=== PATIENT | male | born 1960 | race Caucasian/White ===

== ENCOUNTER 2020-01-25 21:20 | Emergency (ER) | payer OTHER, SELFPAY ==
--- NOTE | ~2020-01-25 | CT_ITS ---
EXAMINATION: CT brain wo con, CT cervical spine wo con EXAM DATE: 01/25/2020 23:19 INDICATION: Fall, syncope. Neck pain. Was in the shower. TECHNIQUE: Spiral CT of the head was performed without contrast. Axial, coronal and sagittal images were reviewed. Spiral CT of the cervical spine was performed without contrast. Axial images were rev iewed. Coronal and sagittal reformatted images were also reviewed. The dose-length product (DLP) fo r this examination was 354.92 (accession [id number]), 542.95 (accession [id number]) mGy-cm. The exposure was tailored according to patient size, and iterative reconstruction (ASIR) was used as additional dose reduction technique. There is no prior study for comparison. FINDINGS: HEAD CT: Contrast from prior intravenous injection of Omnipaque. There is no acute intraparenchymal hemorrhage. No evidence of intraparenchymal brain mass lesion. No evidence of acute infarction. Th ere is mild prominence of the sulci and ventricles related to cerebral atrophy. There is intracrani al carotid arteriosclerosis. There is no mass effect or midline shift. There is no obstructive hydr ocephalus suspected. There are no extra-axial collections. There are no acute calvarial fractures. The orbits are unremarkable. Soft tissue is unremarkable. The visualized sinuses and mastoid air c ells are well aerated. CERVICAL CT: Patient has acute type III odontoid process fracture with 3 mm anterolisthesis of the od ontoid with respect to the base of C2. Unstable type injury. The spinal canal still appears widely pa tent. The lateral masses of C1 line up with C2. There is ankylosing spondylitis with fusion of the c ervical facet joints and anterior longitudinal ligament . There is thoracic kyphosis. No other acute fractures. IMPRESSION: 1. Acute odontoid process fracture with 3 mm anterolisthesis. Unstable type injury; recommend neuros urgical consult. 2. Cervical ankylosing spondylitis. 3. No acute intracranial findings. I discussed acute odontoid fracture with Dr. Miya Nichols MD at 01/25/2020 23:39 CDT. Reviewed, dictated and finalized at location G. IMPRESSION: 1. Acute odontoid process fracture with 3 mm anterolisthesis. Unstable type in jury; recommend neurosurgical consult. 2. Cervical ankylosing spondylitis. 3. No acute intracranial findings. I discussed acute odontoid fracture with Dr. Miya Nichols MD at 01/25/2020 23: 39 CDT.
--- NOTE | ~2020-01-25 | CT_ITS ---
EXAMINATION: CT abdomen pelvis w con EXAM DATE: 01/25/2020 22:20 INDICATION: GI bleed. TECHNIQUE: Spiral CT of the abdomen and pelvis was performed following intravenous injection of 100 m L Omnipaque 350. Axial, coronal and sagittal images were reviewed. The dose-length product (DLP) fo r this examination was 616.49 mGy-cm. The exposure was tailored according to patient size (auto mA e xposure control), and iterative reconstruction (ASIR) was used as additional dose reduction technique . There is no prior study for comparison. FINDINGS: There is a left adrenal nodule measuring 1 cm, probably adenoma. The liver, spleen, and pa ncreas are unremarkable. The gallbladder is contracted but otherwise unremarkable. Portal and splen ic veins are patent. Kidneys enhance symmetrically. There is no hydronephrosis. The prostate is u nremarkable. The bladder is unremarkable. There is no retroperitoneal or pelvic lymphadenopathy. There is mild scattered arteriosclerotic disease. There is moderate scattered colonic diverticulosis with some inflammation along the splenic colonic f lexure colon but also contiguous with the pancreatic tail. Focal outpouching, bulging of gastric con tour below the gastroesophageal junction (see axial image 45) measuring about 3 cm, could be widemout h diverticulum but can't exclude peptic ulcer disease, clinical correlation. The appendix is not positively visualized. There is no pericecal inflammatory change to suggest appe ndicitis. There is expected amount of colonic stool. No free intraperitoneal gas. The heart is no rmal in size. There are no pericardial or pleural effusions. The lung bases are unremarkable. Ther e are no osteoblastic or osteolytic lesions identified. Patient has ankylosing spondylitis. IMPRESSION: Left upper quadrant mild fat stranding most likely uncomplicated splenic flexure divertic ulitis. Pancreatic tail and a gastric outpouching is also in proximity; recommend checking amylase/li pase level and also considering/excluding peptic ulcer disease as possible etiology for patient's sym ptoms and inflammation regional. Reviewed, dictated and finalized at location A. IMPRESSION: Left upper quadrant mild fat stranding most likely uncomplicated sp lenic flexure diverticulitis. Pancreatic tail and a gastric outpouching is also in proximity; recommend checking amylase/lipase level and also considering/exc luding peptic ulcer disease as possible etiology for patient's symptoms and inf lammation regional.
[2020-01-25 21:20] VITALS: BP 83/58; PULSE 74; RESP 19; TEMP 36.6; O2SAT 98
[2020-01-25] MEDS: SODIUM CHLORIDE 0.9% IV 1,000 ML 999 ML IV CONT (21:25)
--- NOTE | 2020-01-25 21:31 | ECG_ITS ---
Measurements Intervals [place] Rate: 73 P: 62 VT: 163 QRS: 55 QRSD: 83 T: 62 QT: 380 QTc: 421 Interpretive Statements SINUS RHYTHM BORDERLINE T WAVE ABNORMALITY- ANTERIOR LEADS BASELINE WANDER- I, AVR, AVF, V1-V4 BORDERLINE ECG Electronically Signed On 01-26-2020 7:04:10 CDT by Sammy Hinojosa D.O.
--- NOTE | 2020-01-25 21:32 | ED.GIBLEED ---
HPI - GI Bleed General Chief complaint: GI Bleed Stated complaint: diarrhea Time Seen by Provider: 01/25/20 21:23 History of Present Illness HPI Narrative: Patient presents via EMS with his for GI bleed and syncope. In the last 3 days he has had multiple bowel movements of black tarry stool. This afternoon he had 4 loose bowel movements, then he got in the shower and passed out. When he woke up, he vomited black tarry substance. He has been taking Pepto-Bismol, and knows that that can make for black stools. He has a medical history of hypertension and cardiac stents. He smokes cigarettes, but does not drink alcohol or do drug. 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 He takes an 81 mg aspirin a day, for his heart. MD complaint: coffee ground emesis and melena Onset (ago): day(s) Pain Consistency: constant Relieving factors: none Exacerbating factors: other (Fainting in the shower) Related Data Home Medications Medication Instructions Recorded Confirmed aspirin [Ainsley Chewable Aspirin] 81 mg PO DAILY 01/25/20 atenolol 50 mg PO DAILY 01/25/20 etanercept [Enbrel SureClick] 50 mg SUBCUT WEEKLY 01/25/20 hydrochlorothiazide 25 mg PO DAILY 01/25/20 lisinopril [Prinivil] 20 mg PO DAILY 01/25/20 pantoprazole 40 mg PO QAM 01/25/20 piroxicam 20 mg PO DAILY 01/25/20 Allergies Allergy/AdvReac Type Severity Reaction Status Date / Time No Known Allergies Allergy Verified 01/25/20 21:25 Review of Systems Review of Systems: Narrative: CONSTITUTIONAL: Denies fever, chills, or sweats. EYES: Denies visual changes, redness, or discharge. ENT: Denies rhinorrhea, congestion, sore throat, or otalgia. CARDIOVASCULAR: Denies chest pain, palpitations, or edema. RESPIRATORY: Denies cough or dyspnea. GASTROINTESTINAL: He has had vomiting, and black stools. GENITOURINARY: Denies dysuria or hematuria. SKIN: Denies rash or itching. MUSCULOSKELETAL: Denies back pain, joint pain, or myalgia. NEUROLOGIC: Denies headache, numbness, or weakness. PSYCHIATRIC: Denies anxiety or depression. All systems reviewed & are unremarkable except as noted in HPI and below PMFSH Past Medical History Medical History Acute GI bleeding Syncope and collapse Surgical History Surgical History (Updated 01/25/20 @ 21:36 by Miya Nichols MD) History of circumcision History of oral surgery Social History Social History (Updated 01/25/20 @ 21:36 by Miya Nichols MD) Smoking status: Current every day smoker Alcohol intake: never Substance use: never Exam Narrative: Exam Narrative: GENERAL: Well-appearing, well-nourished, and in no acute distress. HEAD: Normocephalic, atraumatic. EYES: PERRLA and EOMI. ENT: Nares clear, no rhinorrhea or epistaxis. Mucous membranes moist. Black substance on his tongue. NECK: Supple. CHEST: Clear to auscultation. No respiratory distress. HEART: Regular rate and rhythm. No murmur heard. Normal peripheral pulses. ABDOMEN: Soft, nontender, nondistended, normal active bowel sounds. EXTREMITIES: Normal range of motion. No edema. SKIN: Warm, dry, no rash. NEURO: No focal deficits. Alert and oriented x3. PSYCH: Normal mood and affect. Course Reevaluation(s) Reevaluation #1: Went in to tell the patient about his CAT scan results and blood transfusion, and he complained of neck pain 9 out of 10. Will order morphine for the pain cervical collar for stabilization and a CAT scan of the cervical spine. Reevaluation #2: Went back in the room to update the patient and his on his neck fracture. He requests additional pain medicine and request to go to [place]. Reevaluation #3: Went back in the room to tell the patient that he was being transferred to [facility] because of availability of beds. He continues to nod his head in agreement but I told him please hold her head still and just speak. He is neurovascularly intact. He requests ice chips or water. I told him he probably was no
[2020-01-25 21:41] LABS: Basophils Absolute Auto 0.1 K/mm3 (0.0-0.1); Basophils Percent Auto 0.8 % (0.2-1.2); Eosinophils Absolute Auto 1.1 K/mm3 (0-0.3); Eosinophils Percent Auto 7.6 % (0-4.4); Hematocrit 25.6 % (42.0-52.0); Hemoglobin 7.7 g/dL (14.0-18.0); Immature Granulocyte Absolute 0.21 K/mm3 (0.00-0.031); Immature Granulocyte Percent A 1.5 % (0-0.5); Lymphocytes Absolute Auto 2.54 K/mm3 (0.9-3.2); Lymphocytes Percent Auto 17.7 % (18.3-44.2); Mean Corpuscular HGB Conc 30.1 g/dl (32-36); Mean Corpuscular Hemoglobin 25.8 pg (26-34); Mean Corpuscular Volume 85.6 fl (80-100); Mean Platelet Volume 10.5 fl (7.4-10.4); Monocytes Absolute Auto 1.2 K/mm3 (0.1-0.6); Monocytes Percent Auto 8.7 % (2.6-8.5); Neutrophils Absolute Auto 9.1 K/mm3 (1.3-6.7); Neutrophils Percent Auto 63.7 % (45.5-73.1); Platelet Count Result 326 k/mm3 (150-375); Red Blood Count 2.99 M/mm3 (4.6-6.20); Red Cell Distribution Width 14.3 % (11.5-14.5); White Blood Count 14.3 K/mm3 (4.5-10.0)
[2020-01-25 21:49] LABS: Alanine Aminotransferase 10 U/L (4-50); Albumin Level 3.3 g/dL (3.5-5.1); Alkaline Phosphatase 53 U/L (38-126); Aspartate Amino Transferase 17 U/L (17-59); Bilirubin,Total 0.2 mg/dL (0.2-1.3); Blood Urea Nitrogen 78 mg/dL (9-20); Calcium 8.2 mg/dL (8.4-10.2); Carbon Dioxide 24 mmol/L (22-30); Chloride 109 mmol/L (98-107); Estimated CRCL calculation 33 ml/min; Estimated Glomerular Filt Rate 34; Glucose 148 mg/dL (75-110); Magnesium 1.9 mg/dL (1.6-2.3); Potassium 4.5 mmol/L (3.4-5.0); Sodium 139 mmol/L (137-145)
[2020-01-25 22:00] LABS: Troponin I < 0.012 ng/mL (0.000-0.034)
[2020-01-25 22:03] LABS: INR 1.1; Prothrombin Time 13.6 Seconds (11.1-14.7)
[2020-01-25 22:05] LABS: Partial Thromboplastin Time 29.4 SECONDS (22.3-36.8)
--- NOTE | 2020-01-25 22:25 | PC.NURSE ---
Called lab to add on Trop I Baseline
[2020-01-25] MEDS: PANTOPRAZOLE SODIUM IV 40 MG VIAL IV PUSH (22:29)
--- NOTE | 2020-01-25 22:34 | PC.NURSE ---
Called lab to add on Lipase
[2020-01-25 22:46] LABS: Lipase 192 U/L (23-300)
[2020-01-25] MEDS: MORPHINE SULFATE 2 MG/ML INJ IV PUSH (22:46)
[2020-01-25] MEDS: SODIUM CHLORIDE 0.9% IV 250 ML 30 ML IV CONT (22:47)
[2020-01-25 22:49] VITALS: BP 120/78; PULSE 82; RESP 15; TEMP 36.5; O2SAT 97
[2020-01-25] MEDS: TUBING, BLOOD PLUM PUMP TUBING 1 EACH XX (22:50)
[2020-01-25 23:05] VITALS: BP 111/72; PULSE 81; RESP 20; TEMP 36.6; O2SAT 96
[2020-01-25 23:43] VITALS: BP 131/73; PULSE 80; RESP 17; TEMP 36.8; O2SAT 97
[2020-01-25] MEDS: MORPHINE SULFATE 4 MG/ML INJ IV PUSH (23:57)
[2020-01-26 00:12] LABS: Add Urine Microscopic? NO; Appearance Urine Clear (Clear); Bilirubin Urine Negative (Negative); Blood Urine Negative (Negative); Color Urine Colorless (Yellow); Glucose Urine UA Negative (Negative); Ketones Urine Negative (Negative); Leukocyte Esterase Ur Negative LEU/UL (Negative); Nitrate Urine Negative (Negative); Protein Urine Negative (Negative); Urobilinogen Urine Negative mg/dL (<2.0)
[2020-01-26 00:14] LABS: Specific Grav Ur 1.032 (1.001-1.035)
[2020-01-26 00:30] VITALS: BP 128/72; PULSE 80; RESP 17; O2SAT 95
[2020-01-26 01:00] VITALS: BP 124/78; PULSE 81; RESP 16; O2SAT 94
[2020-01-26 01:13] VITALS: BP 129/77; PULSE 80; RESP 18; TEMP 36.5; O2SAT 96
[2020-01-26] MEDS: TUBING, BLOOD PLUM PUMP TUBING 1 EACH XX (01:25)
[2020-01-26 01:35] VITALS: BP 126/75; PULSE 80; RESP 17; TEMP 36.5; O2SAT 96
[2020-01-26 01:52] VITALS: BP 128/76; PULSE 79; RESP 19; TEMP 36.2; O2SAT 98
[2020-01-26] MEDS: MORPHINE SULFATE 4 MG/ML INJ (02:00)
== END 2020-01-26 02:09 | disposition short-term general hospital (02) ==
PROVIDERS: Emergency Provider Emergency Medicine
DX: K92.2 Gastrointestinal hemorrhage, unspecified (principal); R55 Syncope and collapse; S12.190A Other displaced fracture of second cervical vertebra, initial encounter for closed fracture; I10 Essential (primary) hypertension; Z95.5 Presence of coronary angioplasty implant and graft; F17.210 Nicotine dependence, cigarettes, uncomplicated; M45.2 Ankylosing spondylitis of cervical region; R94.31 Abnormal electrocardiogram [ECG] [EKG]; Z79.82 Long term (current) use of aspirin; W18.2XXA Fall in (into) shower or empty bathtub, initial encounter
CPT/HCPCS: 36415; 36430; 70450; 72125; 74177; 80053; 81003; 83690; 83735; 84484; 85025; 85610; 85730; 86850; 86900; 86901; 86923; 93005; 96361; 96365; 96374; 96375; 96376; 99285; C9113; J2270; J2543; J7030; J7050; L0140; P9016; Q9967

== ENCOUNTER 2020-02-06 09:44 | Inpatient (IN) | payer OTHER, SELFPAY ==
[2020-02-06] VITALS (26 sets, daily range): BP systolic 62–134; BP diastolic 33–95; PULSE 76–148; RESP 16–27; TEMP 35.7–36.9; O2SAT 93–100; BMI 27.3
--- NOTE | ~2020-02-06 | XR_ITS ---
EXAMINATION: XR chest 1V portable DATE: 02/08/2020 06:18 INDICATION: Acute respiratory failure TECHNIQUE: frontal view of the chest was obtained. COMPARISON: Chest radiograph dated 02/07/2020 FINDINGS: Endotracheal tube tip 2.8 cm above the douglas. Nasogastric tube extends below the left hemidiaphragm with distal tip collimated off the study. Skin missy projecting over the epigastric region. Mildly decreased lung volumes. Pulmonary vascular congestion without aiden pulmonary edema. No other airspace opacities, pleural effusion or pneumothorax. The cardiomediastinal silhouette is normal. Cor onary artery stent. IMPRESSION: 1. Pulmonary vascular congestion without aiden pulmonary edema. Reviewed, dictated and finalized at location A.
--- NOTE | ~2020-02-06 | XR_ITS ---
XR hip RT 2V w AP pelvis 02/06/2020 10:15 Indication: Status post fall. Right hip discomfort. Procedure: 3 views right hip Comparison: No prior studies for comparison. Findings: Mild osteoarthritis of the right hip. No acute fracture or traumatic malalignment. No signi ficant soft tissue abnormality. No radiopaque foreign bodies. Impression: 1: No acute fracture. 2: Mild osteoarthritis of the right hip. Reviewed, dictated and finalized at location A. Impression: 1: No acute fracture. 2: Mild osteoarthritis of the right hip.
--- NOTE | ~2020-02-06 | XR_ITS ---
EXAMINATION: XR abdomen NG/feed tube insert EXAM DATE: 02/06/2020 20:39 INDICATION: Nasogastric tube placement. TECHNIQUE: Frontal projection(s) of the abdomen for interpretation. There is no prior study for keith person. FINDINGS: Feeding tube tip and side-port project over gastric bubble, adequate. Lung bases are unrem arkable. Nonobstructive upper abdominal bowel gas pattern. IMPRESSION: Feeding tube overlying expected position. Reviewed, dictated and finalized at location A.
--- NOTE | ~2020-02-06 | XR_ITS ---
EXAMINATION: XR abdomen obstructive series DATE: 02/07/2020 13:47 INDICATION: Assess for bowel perforation TECHNIQUE: Frontal supine and upright views of the abdomen were obtained. COMPARISON: CT dated 01/25/2020 FINDINGS: Nasogastric tube extends through the stomach with angulation at the distal tip suggesting extension i nto the first portion of the duodenum. No dilated gas-filled loops of bowel. No free intraperitoneal gas. Right femoral central venous catheter with distal tip projecting over the region of the right c ommon iliac vein. Temperature probe within a French catheter with tip projecting over the bladder. Lik efrain vasectomy clips at the base of the scrotum on both the left and right. Visualized lung bases are clear. No pleural effusion. Heart size is normal. IMPRESSION: 1. No free intraperitoneal gas or dilated gas-filled loops of bowel to suggest obstruction. 2. Nasogastric tube tip likely in the first portion of the duodenum. Could consider withdrawal by [address] the distal tip in the distal gastric body. Reviewed, dictated and finalized at location A. IMPRESSION: 1. No free intraperitoneal gas or dilated gas-filled loops of bowel to suggest obstruction. 2. Nasogastric tube tip likely in the first portion of the duodenum. Could cons ider withdrawal by [address] the distal tip in the distal gastric body.
--- NOTE | ~2020-02-06 | XR_ITS ---
EXAMINATION: XR chest 1V portable DATE: 02/09/2020 06:00 INDICATION: Acute respiratory failure TECHNIQUE: frontal view of the chest was obtained. COMPARISON: Chest radiograph dated 02/08/2020 FINDINGS: Endotracheal tube tip 1.9 cm above the douglas. Nasogastric tube extends below the left hemidiaphragm with distal tip collimated off the study. Lung volumes remain mildly decreased. Linear discoid atelectasis at the lateral right midlung zone. I ncrease in opacities in the bilateral lower lung zones which could represent atelectasis and/or pneum onia. No pneumothorax or definitive pleural effusion. Cardiomediastinal silhouette is normal. Coronar y artery stenting. IMPRESSION: 1. Opacities in the right mid to lower lung and left lower lung zones which could represent atelectas is and/or pneumonia. Reviewed, dictated and finalized at location A. IMPRESSION: 1. Opacities in the right mid to lower lung and left lower lung zones which cou ld represent atelectasis and/or pneumonia.
--- NOTE | ~2020-02-06 | XR_ITS ---
EXAMINATION: XR chest 1V portable DATE: 02/07/2020 05:43 INDICATION: Mechanical ventilation. TECHNIQUE: frontal view of the chest was obtained. COMPARISON: Chest radiograph dated 02/06/2020 FINDINGS: Endotracheal tube tip 1.6 cm above the douglas. Nasogastric tube extends below the left hemidiaphragm with distal tip collimated off the study. Lungs remain clear with no focal airspace opacities, pulmonary edema, pleural effusion or pneumothora x. The cardiomediastinal silhouette is normal. Kauffman artery stenting. IMPRESSION: 1. No acute cardiopulmonary disease. Reviewed, dictated and finalized at location A.
--- NOTE | ~2020-02-06 | XR_ITS ---
EXAMINATION: XR chest 1V portable DATE: 02/10/2020 05:31 INDICATION: Acute respiratory failure. TECHNIQUE: frontal view of the chest was obtained. COMPARISON: Chest radiograph dated 02/09/2020 FINDINGS: Endotracheal tube tip 2.9 cm above the douglas. Small lung volumes. Gradient of hazy airspace opacitie s in the bilateral lower lung zones with blunting at the costophrenic angles consistent with small po steriorly layering bilateral pleural effusions with associated atelectasis or less likely pneumonia. Mild linear discoid atelectasis in the right midlung zone. No pneumothorax. Heart size is normal. Cor onary artery stenting. Body wall edema at the lateral chest wall. IMPRESSION: 1. Small bilateral pleural effusions with associated basilar atelectasis versus less likely pneumonia . Reviewed, dictated and finalized at location A. IMPRESSION: 1. Small bilateral pleural effusions with associated basilar atelectasis versus less likely pneumonia.
--- NOTE | ~2020-02-06 | XR_ITS ---
EXAMINATION: XR chest 1V portable 02/06/2020 10:23 INDICATION: Syncope. STEMI. PROCEDURE: AP portable chest COMPARISON: No prior studies for comparison. FINDINGS: The lungs are clear. The cardiomediastinal silhouette is within normal limits. There are no pleural effusions. There is no pneumothorax suspected. IMPRESSION: 1: NO ACUTE CARDIOPULMONARY DISEASE. Reviewed, dictated and finalized at location A.
--- NOTE | ~2020-02-06 | CT_ITS ---
EXAMINATION: CT brain wo con DATE: 02/06/2020 10:04 INDICATION: Syncope TECHNIQUE: Computed tomography (CT) of the head was performed without intravenous contrast. Sagittal and coronal reconstructions were performed. The mA was adjusted according to patient size. Iterative reconstruction technique was employed. The dose-length product was 605.33 mGy-cm. COMPARISON: head CT dated 01/25/2020 FINDINGS: No acute intracranial hemorrhage, acute infarction or abnormal extra axial fluid collection. Symmetri c mild increased prominence of the sulci and subarachnoid spaces overlying the convexities consistent with mild age-appropriate diffuse cerebral volume loss. Ventricles are normal and symmetric. No mas s/mass effect. The orbits, paranasal sinuses and mastoid air cells are normal. Intracranial calcified cerebral atherosclerosis is noted. IMPRESSION: 1. Normal aging brain. No acute intracranial process. Reviewed, dictated and finalized at location A.
--- NOTE | ~2020-02-06 | US_ITS ---
EXAMINATION: US venous doppler [facility] DATE: 02/11/2020 11:05 INDICATION: Fever, acute respiratory failure TECHNIQUE: Atkins scale images without and with compression and Doppler images of the bilateral lower e xtremity veins were obtained. COMPARISON: None FINDINGS: The right common femoral vein, profunda femoral vein, femoral vein, popliteal vein, peroneal trunk, p osterior tibial veins, and greater saphenous vein are patent. The left common femoral vein, profunda femoral vein, femoral vein, popliteal vein, peroneal trunk, po sterior tibial veins, and greater saphenous vein are patent. IMPRESSION: 1. Patent bilateral lower extremity veins. No evidence of deep venous thrombosis. Reviewed, dictated and finalized at location A. IMPRESSION: 1. Patent bilateral lower extremity veins. No evidence of deep venous thrombosi s.
--- NOTE | ~2020-02-06 | CT_ITS ---
EXAMINATION: CT brain wo con DATE: 02/15/2020 01:16 INDICATION: Right hemiparesis. TECHNIQUE: Computed tomography (CT) of the head was performed without intravenous contrast. The mA wa s adjusted according to patient size. Iterative reconstruction technique was employed. The dose-lengt h product was 354.92 mGy-cm. COMPARISON: Head CT 02/06/2020 FINDINGS: There is an area of low-attenuation in the right frontal lobe white matter. There is an are a of low attenuation involving the left frontoparietal region primarily involving white matter. There is no acute intracranial hemorrhage. The ventricles are normal in size. The orbits are normal. The p aranasal sinuses are clear. The mastoid air cells are normal. IMPRESSION: 1. New areas of low-attenuation in the right frontal lobe and left frontoparietal region, consistent with infarcts. Reviewed, dictated and finalized at location A. IMPRESSION: 1. New areas of low-attenuation in the right frontal lobe and left frontopariet al region, consistent with infarcts.
--- NOTE | ~2020-02-06 | XR_ITS ---
EXAMINATION: XR chest 1V portable INDICATION: Acute respiratory failure TECHNIQUE: Portable AP chest at 0547 hours COMPARISON: 02/10/2020 FINDINGS: The endotracheal tube ends approximately 2.8 cm above the douglas. The lung volumes are low . Small pleural effusions are present with slight increase on the right. There are stable patchy biba silar airspace opacities. No pneumothorax is identified. The cardiomediastinal silhouette is normal. IMPRESSION: 1. Small pleural effusions with slight increase on the right. 2. Stable bibasilar airspace opacities, likely atelectasis. Reviewed, dictated and finalized at location A.
--- NOTE | ~2020-02-06 | XR_ITS ---
EXAMINATION: XR chest ET placement EXAM DATE: 02/06/2020 23:10 INDICATION: Respiratory failure. TECHNIQUE: Portable AP frontal chest x-ray was obtained. Comparison is made to prior examination from 02/06/2020. FINDINGS: Endotracheal tube tip is approximately 1 centimeters above the douglas, could be safely retr acted 1 cm, but this is also a lordotic projection, which may affect appearance of tube position. Bot h lungs are being well aerated at present. There is a nasogastric tube seen with tip collimated off t he study, but below the left hemidiaphragm. Coronary artery stent probably left anterior descending coronary artery. The cardiomediastinal silhou ette is prominent but magnified on this AP technique. No confluent consolidation, pneumothorax or ple ural effusion suspected. There are mild bony degenerative changes. IMPRESSION: ET tube as above. No focal airspace disease. Reviewed, dictated and finalized at location .
--- NOTE | ~2020-02-06 | US_ITS ---
EXAMINATION: US carotid duplex BI DATE: 02/15/2020 11:08 INDICATION: Syncope. TECHNIQUE: Grayscale, color Doppler, and pulsed Doppler images of the cervical carotid arteries were obtained. The degree of vessel stenosis is placed in one of the following categories: normal, <50%, 5 0-69%, >=70% but less than near-occlusion, near-occlusion, or total occlusion. Note that percent sten osis relative to normal distal artery lumen diameter is indirectly measured from velocity measurement s as described by Ahsan, et al. Radiology 2003; 229:340-346. COMPARISON: None. FINDINGS: RIGHT: The right common carotid artery (CCA) peak systolic velocity (PSV) is 104 cm/s. The right internal ca rotid artery (ICA) PSV is 106 cm/s. The right ICA end-diastolic velocity (EDV) is 26 cm/s. The right ICA/CCA PSV ratio is 1.0. Grayscale and color Doppler images yield an estimate of <50% diameter reduc tion from plaque in the ICA. There is antegrade flow in the right vertebral artery. LEFT: The left CCA PSV is 130 cm/s. The left ICA PSV is 104 cm/s. The left ICA EDV is 18 cm/s. The left ICA /CCA PSV ratio is 0.8. Grayscale and color Doppler images yield an estimate of <50% diameter reductio n from plaque in the ICA. There is antegrade flow in the left vertebral artery. IMPRESSION: 1. <50% stenosis in the right internal carotid artery. 2. <50% stenosis in the left internal carotid artery. Reviewed, dictated and finalized at location A.
--- NOTE | ~2020-02-06 | XR_ITS ---
EXAMINATION: XR abdomen NG/feed tube insert DATE: 02/16/2020 03:34 INDICATION: Nasogastric tube placement. TECHNIQUE: A supine view of the abdomen on 2 radiographs was obtained. COMPARISON: Abdomen radiograph 02/07/2020 FINDINGS: There are no dilated loops of bowel. Skin missy are noted. The nasogastric tube tip is in the stomach. A gastrostomy tube overlies the left abdomen. There is a left inguinal catheter. IMPRESSION: 1. Nasogastric tube tip in the stomach. Reviewed, dictated and finalized at location A.
--- NOTE | ~2020-02-06 | XR_ITS ---
EXAMINATION: XR chest 1V portable INDICATION: Acute respiratory TECHNIQUE: Portable AP chest at 0528 hours COMPARISON: 02/11/2020 FINDINGS: The endotracheal tube ends approximately 2.4 cm above the douglas. Small stable pleural effu sions are present, right greater than left. There is no pneumothorax. The cardiomediastinal silhouett e is normal. Bibasilar airspace opacities are unchanged. IMPRESSION: 1. Stable bibasilar airspace opacity, likely atelectasis. 2. Small pleural effusions, stable. Reviewed, dictated and finalized at location A.
--- NOTE | 2020-02-06 09:48 | ECG_ITS ---
Measurements Intervals [place] Rate: 112 P: 63 [place]: 160 QRS: 56 QRSD: 82 T: 71 QT: 316 QTc: 432 Interpretive Statements SINUS TACHYCARDIA DELAYED PRECORDIAL R/S TRANSITION BASELINE WANDER- I, II, V1-V2, V6 ABNORMAL ECG Electronically Signed On 02-06-2020 11:08:48 CDT by Sammy Hinojosa D.O.
--- NOTE | 2020-02-06 09:50 | ED.CHESTPAIN ---
HPI - Chest Pain General Chief Complaint: Chest Pain Stated Complaint: syncope, stemi Source: RN notes reviewed History of Present Illness HPI narrative: Patient presents emergency department from home via EMS for syncopal episode. Patient states that this morning he was up drinking coffee feeling fine he states that he had gotten up to go outside to do some neck exercises when he got up he began to feel dizzy and went to sit down on the couch and when he sat on the couch had a syncopal episode. The patient then rolled off the couch patient's was able to come and catch the patient as he was falling to the floor denies patient hitting his head but patient did strike his right hip complain of pain to his right hip. Patient recently with a cervical spine fracture from a syncopal episode on 01/25/2020 that time patient was noted to have a GI bleed and was transferred out of the [facility]'s emergency department. Patient denies any complaints at this time other than right hip pain he denies any fevers or chills chest pain shortness of breath abdominal pain nausea vomiting Related Data Home Medications Medication Instructions Recorded Confirmed aspirin [Ainsley Chewable Aspirin] 81 mg PO DAILY 01/25/20 atenolol 50 mg PO DAILY 01/25/20 etanercept [Enbrel SureClick] 50 mg SUBCUT WEEKLY 01/25/20 hydrochlorothiazide 25 mg PO DAILY 01/25/20 lisinopril [Prinivil] 20 mg PO DAILY 01/25/20 pantoprazole 40 mg PO QAM 01/25/20 piroxicam 20 mg PO DAILY 01/25/20 Allergies Allergy/AdvReac Type Severity Reaction Status Date / Time No Known Allergies Allergy Verified 02/06/20 12:17 Review of Systems Review of Systems: Narrative: Gen.: Denies fevers or chills Eyes: Denies eye pain or visual change ENT: Denies congestion Respiratory: Denies shortness of breath or cough CV: Denies chest pain or palpitations reports syncopal episode GI: Denies abdominal pain nausea, emesis or diarrhea denies burning, urgency, frequency or hematuria Musculoskeletal: Reports cervical spine fracture Neuro: Denies numbness, tingling, weakness or focal weakness Skin: Denies rash Except as documented, all other systems reviewed and negative PMFSH Past Medical History Medical History Acute GI bleeding Syncope and collapse Surgical History Surgical History (Updated 01/25/20 @ 21:36 by Miya Nichols MD) History of circumcision History of oral surgery Social History Social History Smoking packs per day: 1 Smoking cigarettes per day: 20.0 Years smoked: 42 Smoking pack-years: 42.00 Smoking status: Current every day smoker Tobacco type: cigarettes Alcohol intake: never Substance use: never Substance use type: does not use Spiritual care concerns: No Exam Narrative: Exam Narrative: APPEARANCE: No acute distress, nontoxic, resting in bed EYES: EOMI, Lindsey HEENT: Normocephalic, atraumatic, OMM Neck: C-collar in place, no midline tenderness RESPIRATORY: No respiratory distress Clear to auscultation bilaterally with no rhonchi wheezing or rales. CARDIOVASCULAR: Regular rate and rhythm without murmurs rubs or gallops. ABDOMINAL: Soft, nontender, nondistended, no rebound or guarding MUSCULOSKELETAl: Moves all extremities. No clubbing, cyanosis or edema. Tender palpation of the right anterior and lateral hip, no swelling or ecchymosis, pain with flexion or abduction greater than 45 degrees, no tenderness of the right knee or ankle, dorsalis pedis pulse 2+, neurovascular intact NEURO: Awake and alert x 3. Following commands, speech normal, no focal deficits SKIN:: Warm, dry. No rashes lesions or abrasions PSYCHIATRIC: Normal affect/mood, Course Course Emergency Course: Patient initially was a code STEMI called from the field. Dr. Pitts came to the emergency department evaluate the patient code STEMI called off at [facility]
[2020-02-06] MEDS: SODIUM CHLORIDE 0.9% IV 1,000 ML 999 ML IV CONT (09:52)
[2020-02-06 10:06] LABS: Basophils Absolute Auto 0.1 K/mm3 (0.0-0.1); Basophils Percent Auto 0.9 % (0.2-1.2); Eosinophils Absolute Auto 1.3 K/mm3 (0-0.3); Eosinophils Percent Auto 10.8 % (0-4.4); Hematocrit 25.3 % (42.0-52.0); Hemoglobin 7.8 g/dL (14.0-18.0); Immature Granulocyte Absolute 0.17 K/mm3 (0.00-0.031); Immature Granulocyte Percent A 1.5 % (0-0.5); Lymphocytes Absolute Auto 1.52 K/mm3 (0.9-3.2); Lymphocytes Percent Auto 13.1 % (18.3-44.2); Mean Corpuscular HGB Conc 30.8 g/dl (32-36); Mean Corpuscular Hemoglobin 27.1 pg (26-34); Mean Corpuscular Volume 87.8 fl (80-100); Mean Platelet Volume 10.3 fl (7.4-10.4); Monocytes Absolute Auto 0.9 K/mm3 (0.1-0.6); Monocytes Percent Auto 7.6 % (2.6-8.5); Neutrophils Absolute Auto 7.7 K/mm3 (1.3-6.7); Neutrophils Percent Auto 66.1 % (45.5-73.1); Platelet Count Result 385 k/mm3 (150-375); Red Blood Count 2.88 M/mm3 (4.6-6.20); Red Cell Distribution Width 16.7 % (11.5-14.5); White Blood Count 11.6 K/mm3 (4.5-10.0)
[2020-02-06 10:16] LABS: INR 1.1; Prothrombin Time 13.9 Seconds (11.1-14.7)
[2020-02-06 10:17] LABS: Partial Thromboplastin Time 26.1 SECONDS (22.3-36.8)
[2020-02-06 10:19] LABS: Alanine Aminotransferase 9 U/L (4-50); Albumin Level 2.9 g/dL (3.5-5.1); Alkaline Phosphatase 46 U/L (38-126); Aspartate Amino Transferase 14 U/L (17-59); Bilirubin,Total < 0.1 mg/dL (0.2-1.3); Blood Urea Nitrogen 30 mg/dL (9-20); Calcium 7.7 mg/dL (8.4-10.2); Carbon Dioxide 25 mmol/L (22-30); Chloride 105 mmol/L (98-107); Estimated CRCL calculation 41 ml/min; Estimated Glomerular Filt Rate 42; Glucose 157 mg/dL (75-110); Potassium 3.9 mmol/L (3.4-5.0); Sodium 137 mmol/L (137-145)
[2020-02-06 10:30] LABS: Troponin I < 0.012 ng/mL (0.000-0.034)
--- NOTE | 2020-02-06 12:02 | PC.NURSE ---
This patient, Johnson Hall, was admitted to IMU Room 201-01. Patient/family oriented to hospital policies and general routines including ID bracelet, bed and alarms, visiting hours, pain management, procedures, bathroom and other care routines, personal items, smoking policy, room service/diet, and visiting hours. Valuables list has been completed. Information on how to activate the Rapid Response Team has been discussed. Patient/Family are encouraged to report perceived risks to care and to ask questions if they do not understand what they are told or what they should do.
--- NOTE | 2020-02-06 13:10 | PM.CNCAR ---
Assessment and Plan Additional Plan Episode of symptomatic hypotension resulting in of near syncopal episode this morning at home. I do not believe the patient had a aiden syncopal episode based on his history that I am receiving at this time. I have no idea why the EMS crew declared is a ST-elevation IL this morning I see no clinical or electrocardiographic evidence of that. He does have coronary artery disease with previous PCI most recently about 6 years ago at [place] from what he is describing. It is very concerning to me that he was having symptomatic hypotension and experiencing near-syncope at home since he has a recently sustained C2 odontoid process fracture. Would recommend discontinuing the thiazide diuretic and observing orthostatic vital signs. It may be necessary to also reduce his PRACHI-inhibitor if he is significantly orthostatic. It is obviously not safe for this gentleman with a relatively fresh C2 fracture to be having falls at home. Patient states that he was seen by the cardiology department at [facility] at the time of the recent admission and transfer over there. He indicated that he was evaluated and had a unremarkable echocardiogram performed. That being said I do not think that needs to be repeated here at [facility] a week later. We will follow him on telemetry with you while he is in the hospital. Vipul Pitts MD [facility] History of Present Illness History of Present Illness Consult date/time: Date of service: 02/06/20 13:10 Reason For Visit: syncope, renal insufficiency Narrative: This is a 59-year-old man who I am seeing at the request of the hospitalist because of a reported syncopal episode. Patient was seen in room 201 he is a very good historian and I do not believe he is reporting symptoms compatible with syncope. In any event he was in his usual state of health which is been somewhat fragile over the last week to 10 days since he fell again at that time and sustained a C2 odontoid process fracture. This morning he was at home having a cup coffee at the kitchen table his called for him to help with something in another room and when he got up out of the chair he felt lightheaded and unstable. He thought he might be in danger of losing consciousness so he made it over to the sulfa and in the process of laying down believes that he lost consciousness briefly. 911 was called and he was taken here by ambulance. On route to the hospital STEMI was declared by the EMS crew in the ambulance. Upon arrival I was in the emergency room anticipating the arrival of an acute IL however the electrocardiogram looked normal and I canceled that emergency. He was evaluated in the emergency department and admitted to the hospital in this setting we are being asked to see him in consultation. The primary service I do not believe has been here yet to see him. The patient offers no other complaints currently. 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 The patient did not have any chest symptoms of chest pain pressure or heaviness. He does have a history of coronary artery disease with coronary stenting having been done in 2010 and again in 2013 at [facility]. I do not have the records detail in those procedures available to me at the time of this dictation. In any event follow-up was of course recommended with a monument setter down there after the PCI but the patient did not comply with those requests. He states that he does see a primary care provider who he believes is a nurse practitioner at [facility] who manages his blood pressure. His other principal longstanding medical problems is ongoing smoking and he continues to smoke cigarettes. The patient was evaluated at [facility] on 01/25/2020 also in the emergency room after falling at home. That was a fall in a shower. He wa
[2020-02-06] MEDS: SODIUM CHLORIDE 0.9% IV 1,000 ML 100 ML IV CONT (14:09)
[2020-02-06 16:16] LABS: Troponin I 0.076 ng/mL (0.000-0.034)
--- NOTE | 2020-02-06 18:10 | PC.NURSE ---
Entered patient's room to help him to the bathroom. Patient stated he was dizzy once sitting on the side of the bed. Patient stayed on the side of the bed for a few moments and the dizziness stopped. Patient walked with assistance to the bathroom. No complaints while walking to the bathroom or once seated on the toilet. This RN stayed outside of bathroom. Patient's heart rate elevated. Asked patient if he was okay and no response. Opened the door to patient being unresponsive on toilet. Lowered patient to seated position. Yesika Hare NP in room. See fall documentation for further details.
[2020-02-06] MEDS: SODIUM CHLORIDE 0.9% IV 500 ML IV CONT ×3 (18:15→23:28)
--- NOTE | 2020-02-06 18:30 | PC.NURSE ---
1830 Patient vomited blood and clots three times while in room 201. Yesika Hare NP made aware of bleeding and in room after 2nd time. Will continue to monitor patient.
--- NOTE | 2020-02-06 18:39 | PM.IMHP ---
H&P: HPI History of Present Illness Chief complaint: syncope, renal insufficiency Narrative: Johnson Hall is a 59 year old male who had came to the emergency room on 01/25/2020 after had a syncopal episode and fell and was having some neck pain the patient was in the shower at the time. Patient was found to have an acute odontoid process fracture with 3 mm arterialishesis. The patient was sent to [facility]. And now has a neck brace on. The patient stated that he did not have any neck surgery. He has not been on any blood thinners but has been on NSAIDs. The patient came back into the emergency room today for complaints of syncopal episode. The patient stated that this morning he was up drinking coffee is feeling fine and then he got up to go outside to do some neck exercises we started filled it dizzy. The patient was able to sit back down on the couch and had a syncopal episode. The patient then rolled off the couch in the was able to catch him. He was complaining of right hip pain he also denies hitting his head. The patient was noted to have a GI bleed at u and had 3 ulcers cauterize at that time. H&H when he came in today was 7.825.3. Which was comparable to his last ER visit on 01/25/2020. The patient had been on in IMU for several hours when he was up to the bathroom and felt dizzy he was use to the floor and had a syncopal episode. The patient then proceeded to vomit bright red blood approximately 500 cc and he also had a dark stool. I then notified GI and the combiner operator. The patient was seen by the chute puller earlier today. The patient has a history of coronary artery disease. The patient's blood pressure has been low today. 83/52 and 106/60. On IV fluids in the emergency room today. Date of service 02/06/2020 Review of Systems Review of Systems: All systems reviewed & are unremarkable except as noted in HPI and below Constitutional: Constitutional: Reports as per HPI and Reports no additional constitutional complaints Eyes: Eyes: Reports as per HPI and Reports no additional eye complaints ENT: Reports system reviewed and no additional complaints, except as documented and Reports Normal hearing present Cardiovascular: Cardiovascular: Reports no additional cardiovascular complaints Respiratory: Respiratory: Reports no additional respiratory complaints and Reports no additional respiratory complaints Gastrointestinal: Gastrointestinal: Reports as per HPI and Reports no additional gastrointestinal complaints Musculoskeletal: Musculoskeletal: Reports no additional musculoskeletal complaints Integumentary/Breasts: Skin/Breast: Reports system reviewed and no additional complaints, except as docu and Reports as per HPI Neurologic: Reports system reviewed and no additional complaints, except as documented, Reports as per HPI and Reports Normal hearing present Psychiatric: Psychiatric: Reports no additional psychiatric complaints and Reports as per HPI Endocrine: Endocrine: Reports no additional endocrine complaints Hematologic/Lymphatic: Hematologic/Lymphatic: Reports no additional hematologic/lymphatic complaints Allergic/Immunologic: Allergic/Immunologic: Reports no additional allergic/immunologic complaints [facility] Past Medical History Medical History (Updated 02/06/20 @ 19:23 by Yesika Hare NP) Acute GI bleeding CAD (coronary artery disease) Chronic GERD Chronic renal failure, stage 3 (moderate) Hypertension Peptic ulcer Syncope Syncope and collapse Surgical History Surgical History (Updated 02/06/20 @ 19:23 by Yesika Hare NP) History of circumcision History of esophagogastroduodenoscopy (EGD) Cauterize 3 ulcers about a week and half History of oral surgery Hx of cardiac catheterization Angioplasty Family History Family History (Updated 02/06/20 @ 19:19 by Yesika Hare NP) Mother Diabetes mellitus Father Hyperlipidemia Sibling Acute myocardial infarctio
[2020-02-06 19:05] LABS: Hemoglobin 5.6 g/dL (14.0-18.0)
[2020-02-06 19:06] LABS: Hematocrit 18.6 % (42.0-52.0)
--- NOTE | 2020-02-06 19:41 | PC.NURSE ---
1900 Patient transferred to ICU 9 via bed for upper GI bleed and hypotension on 02/06/2020. Report given to DELTA Perry. Belongings sent with patient.
--- NOTE | 2020-02-06 20:17 | P.PNCROSS_ITS ---
Event Note Event Note Event Note: Nursing staff called me to assess this patient as he was having projectile bright red vomiting. On my arrival to bedside the patient is receiving 1 unit of pRBCs being transfused and is hypotensive and tachycardic. He complains of abdominal discomfort and continues to retch. Nursing attempted to place NG tube per GI, Dr. Alcantar but were unable due to the patient not being able to bend his neck as he is in a C collar from having a recent C1 vertebral fracture. We have ordered 2 more units of pRBCs and are placing a central IV line for possible vasopressors as the patient appears to be in hemorrhagic shock. Nursing reports that he has vomited up over 1 L of bright red blood with clots. I have personally called Road Manager, Dr. Alcantar and explained to him in detail the patient's current clinical condition at 20:00 hrs including how the patient is actively bleeding and in shock. I have verbalized that I believe the patient needs an urgent EGD to control his upper GI bleed as the patient recently had #3 gastric ulcers cauterized at [facility]. Dr. Alcantar verbalized to me his understanding of the patients current clinical condition. I have asked nursing staff to update our Content Specialist as well.
--- NOTE | 2020-02-06 20:20 | WPDPROCEDUR ---
Procedures Central Line Placement Right Femoral: Central Line Date: 02/06/20 Central Line Time: 20:15 Discussed w/ the patient/family/POA,the placement of a central venous catheter, including its clinical necessity/indication & associated potential risks, benifits and alternatives.: Yes The patient/family/POA understand(s) and acknowledge(s) the need to proceed with central venous catheter insertion as an important element of the patient's clinical management.: Yes Time Out Performed: Yes Patient Position: supine Patient placed on monitor/pulse ox: Yes Provider Prep: mask, sterile gown, sterile gloves, Max. sterile barrier precautions and hand hygiene Central line prep: Povidone-Iodine 1% Local anesthesia used: lidocaine 1% Ultrasound used for placement: Yes Central line lumen inserted: triple Togolese: 7 Length (cm): 16 Depth of Insertion (cm): 15 Post procedure: sutured in place and tegaderm Post procedure x-ray: other (femoral) Patient tolerated procedure: well Complications: none
[2020-02-06] MEDS: NOREPINEPHRINE 8 MG/D5W 250 ML 8 MG/250 ML BAG 9.4 MG IV CONT ×2 (21:03→21:30)
--- NOTE | 2020-02-06 21:53 | WPDGICN ---
Assessment and Plan Assessment and plan (1) GI bleed: Code(s): K92.2 - Gastrointestinal hemorrhage, unspecified Status: Acute Assessment and Plan: Upper GI bleeding noted manifested by mom large amount hematemesis. Patient recently hospitalized with EGD documenting several gastric ulcers. This most likely source of GI bleeding. Agree with plans for Protonix drip. Hemoglobin will be monitored. Patient will be given fluid bolus and transfusion to maintain blood pressure. Pressures should be avoided if possible. Plan is for an EGD in the morning if not sooner. NG tube lavage to clear his stomach will be and splinted in the antrum. (2) Gastric ulcer: Code(s): K25.9 - Gastric ulcer, unspecified as acute or chronic, without hemorrhage or perforation Status: Acute Assessment and Plan: Gastric ulcers documented by EGD at [facility] within the last 2 weeks. Plan is to maintain proton pump inhibitors for the immediate future. Continue monitor hemoglobin follow-up EGD as described (3) Azotemia: Code(s): R79.89 - Other specified abnormal findings of blood chemistry Status: Acute Assessment and Plan: Azotemia noted with elevated BUNs consistent with his upper GI bleeding. Patient is reported to have renal insufficiency but old records are not immediately available. (4) Hypertension: Code(s): I10 - Essential (primary) hypertension Status: Chronic Assessment and Plan: Patient has a past medical history hypertension. Given is significant GI blood loss in resulting low blood pressure antihypertensive agents will be held until his vital signs are more stable. Additional Plan Plan is for initial fluid resuscitation in the intensive care unit to include IV fluid. Transfusion to a stable hemoglobin. IV Protonix drip. Avoid nonsteroidal anti-inflammatory agents. Hold antihypertensive agents until patient's resuscitation is complete. Continue monitor renal function given is history of renal insufficiency. Likely elevation of BUN related upper GI blood loss. We will continue follow with you throughout the hospital stay. GI Consult Note Consult date/time: 02/06/20 21:53 HPI: Johnson Hall is a 59 year old male seen in evaluation at the request of the hospitalist service. Patient has an underlying history hypertension. He presented [facility] 10 days ago with a syncopal episode. He was found to be quite anemic with suspicion of GI bleeding. He at that time gave a history of falling in the shower and x-rays in the emergency room revealed that he had a neck fracture patient subsequently was transferred [facility] for evaluation he was treated conservatively with neck brace. During that hospital stay an EGD was performed and he was found to have several gastric ulcers which were cauterized and treated. He has been at home with and neck therapy exercises. He awoke this morning and had a syncopal episode presented to [facility] approximately 10:00 a.m.. Throughout the day he did well although he was noted to have a low hemoglobin approximately 7.7 at the time of presentation. This evening approximately 630 he vomited bloody emesis and for this reason I was consulted. Patient subsequently was transferred to the intensive care unit with additional hematemesis. He does notice neck discomfort he denies abdominal pain. He is was noted to have a decline in his blood pressure. Past medical history is significant for hypertension. He has a history of neck fracture 10 days ago. History of gastric ulcers identified during the recent hospital stay. He denies use of any blood thinners. His family history is noncontributory. Review of Systems Review of Systems: All systems reviewed & are unremarkable except as noted in HPI and below PMFSH Past Medical History Medical History Acute GI bleeding CAD
[2020-02-06 22:01] LABS: Hematocrit 26.6 % (42.0-52.0); Hemoglobin 8.3 g/dL (14.0-18.0)
--- NOTE | 2020-02-06 22:15 | PC.NURSE ---
PATIENT WAS TRANSFERRED FROM IMU AT SHIFT CHANGE. ON ARRIVAL, PATIENT STARTED VOMITING PROFUSE AMOUNTS OF BLOOD WITH CLOTS AND HAD A MODERATE DARK COLORED STOOL. DR. SANTO WAS UPDATED AROUND 1944 WITH THE PATIENT'S STATUS. HE ORDERED AN NG TUBE WITH 2L OF LAVAGE UNTIL FLUID WAS CLEAR. NG TUBE WAS PLACED WITH DIFFICULTY AND VERIFIED WITH RADIOLOGY. PATIENT COULD NOT TOLERATE THE FULL 2L, STATING HIS STOMACH FEELS TOO FULL AND WAS VOMITING BLOOD. BP WAS UNSTABLE, WITH SBP 60S-70S. LEVOPHED WAS STARTED AT THIS TIME, PER HOSPITALIST. CENTRAL LINE PLACED BY HOSPITALIST, DUE TO INABILITY TO OBTAIN ANOTHER IV ACCESS. DR. SANTO WAS CALLED AGAIN AND UPDATED AROUND 2139. HE DID NOT WANT THE LEVOPHED RUNNING, BUT INSTEAD WANTED A 500ML BOLUS NS AND NS INCREASED FROM 100 TO 200 ML/HR. DR. SANTO OKAY WITH SBP IN 70S. DR. SANTO CAME TO BEDSIDE TO CHECK ON PATIENT. GAVE AN ORDER FOR AN ADDITIONAL 2 UNITS OF PRBC (FOR A TOTAL OF 5 UNITS OF BLOOD). HBG CURRENTLY STABLE AT 8.3. AROUND 2299, THE PATIENT'S RESPIRATORY STATUS DECLINED. PATIENT STARTED BECOMING INCREASINGLY CONFUSED AND COULD NOT ANSWER SIMPLE ORIENTATION QUESTIONS. PATIENT STARTED HAVING SEIZURE-LIKE SYMPTOMS WITH RHYTHMIC MOTION OF THE EYES AND CONTRACTED EXTREMITIES WHICH LASTED ONLY AROUND 2 MINUTES. HOSPITALIST CALLED TO BEDSIDE AND DECIDED TO INTUBATE THE PATIENT TO PROTECT THE AIRWAY. TECHNOLOGY CONSULTANT AND GI SPECIALIST UPDATED ON PATIENT CONDITION. WITH CURRENT SYMPTOMS, DR. SANTO DECIDED TO COMPLETE EGD AT BEDSIDE OVERNIGHT. THE PATIENT'S WAS CALLED, FROM WHICH CONSENT FOR THE PROCEDURE WAS OBTAINED. PER DR. SANTO, NS DECREASED TO 100ML/HR; LEVOPHED IS CURRENTLY RUNNING FOR BP SUPPORT. WILL CONTINUE TO MONITOR PATIENT FOR CHANGES IN STATUS AND WILL FOLLOW CURRENT PLAN OF CARE.
--- NOTE | 2020-02-06 23:18 | WPDPROCEDUR ---
Procedures Intubation Intubation Date: 02/06/20 Intubation Time: 23:18 A pre-procedural Time-Out was completed immediately before starting the procedure and confirmed: Patient Identification, Site, Procedure, Patient Position and the Availability of Requisite Equipment: Yes Sedative: versed Mg given: 2 Paralytic: rocuronium Mg given: 25 Laryngoscope: fiber optic video scope ET tube size: 7.5 Tube secured depth (cm): 24 Tube secured location: other (gums) Tube placement confirmation: visualized tube passing through cords, equal breath sounds bilaterally, no breath sounds over epigastrium and confirmation by capnometry Patient tolerated procedure: well Intubation complications: none Additional comments: Date of service was 02/06/2020 at 22:40 hrs.
[2020-02-06 23:23] LABS: Alveolar/Arterial O2 Gradient 206.4 mmHg; Base Excess ABG -21.1 mEq/l (+/-2.0); Fractional Inspired Oxygen 100 %; HCO3 ABG 9.5 mEq/l (22.0-26.0); Oxygen Saturation ABG 99.7 % (95.0-100.0); Oxyhemoglobin 97.8 % THb (90.0-100.0); PCO2 ABG 41.9 mmHg (35.0-45.0); PO2 ABG 464.7 mmHg (80.0-100.0); PO2 FiO2 Ratio Arterial Blood 4.65 %; Total Hemoglobin 9.2 g/dL (12.0-18.0)
[2020-02-06 23:29] LABS: Device VENTILATOR; Site Drawn LEFT FEMORAL; pH ABG 6.972 (7.350-7.450)
[2020-02-06 23:30] LABS: Arterial Blood Gas PEEP 5 cmH2O; Arterial Blood Gas Vent Mode CMV; Arterial Blood Gas Ventilator rate 15 /MIN
[2020-02-06 23:31] LABS: Arterial Blood Gas Tidal Volume 450 ml
[2020-02-06] MEDS: SODIUM CHLORIDE 0.9% IV 1,000 ML 200 ML IV CONT (23:31)
--- NOTE | 2020-02-06 23:32 | P.PNCROSS_ITS ---
Event Note Event Note Event Note: I was called emergently to evaluate this 59 year old patient as he had become poorly responsive. On my arrival to bedside the patient is poorly responsive and not breathing on his own. We immediately began to bag ventilate the patient. His blood pressure was 60s/30s mm Hg and the Levophed that had been started earlier was stopped. We continued to transfuse the patient and started a NS IV bolus. The patient also was restarted on IV levophed. I urgently intubated the patient as he was not breathing on his own. I spoke with our Shipping And Receiving Operator and GI specialist by phone. Afterwards the patient was taken to the GI lab and had a EGD performed but the GI specialist was not able to stop the source of bleeding. On arrival back in the ICU the patient continued to have dark red blood draining from his NG tube and I obtained an ABG and Lactic acid which demonstrated an elevated lactic acid of 9.4 and a pH of 6.9 on ABG. The patient was started on a sodium bicarbonate IV drip. The patient continued to be hypotensive and stress dose steroids and 500 cc NS IV bolus was initiated. I also ordered Vasopressin IV. Routine labs were obtained which demonstrated significant leukocytosis and the patient was given a dose of wide spectrum antibiotics to cover for possible septic shock of unknown source and blood and urine cultures were obtained. Nursing staff has updated our Shipping And Receiving Operator. A/P Hemorrhagic Shock secondary to upper GI Bleed Acute Respiratory failure - We will continue supportive and resuscitative care - Continue mechanical ventilation - Monitor vital signs closely and maintain a MAP of 65 mm Hg. - Trend H/H, transfuse further pRBCs as needed. - Continue GI Recommendations - Check another ABG and reflex lactic acid in am. - Cultures pending - I have discussed the patient's current clinical condition and prognosis in [facility] with his who was at bedside. - I will continue to reassess as needed Total critical care time spent overnight exceeded 43 minutes.
[2020-02-07] VITALS (49 sets, daily range): BP systolic 67–141; BP diastolic 30–85; PULSE 98–146; RESP 14–29; TEMP 35.3–37.7; O2SAT 98–100; BMI 27.3
--- NOTE | 2020-02-07 00:09 | WPDANESEPPF ---
Anes - Initial Pre Proc Eval Procedure: Operation Date: 02/07/20 00:00 Proposed Procedures p Esophagogastroduodenoscopy - Kaveh Alcantar MD Date/Time: 02/07/20 00:09 Pre Op Diagnosis: syncope, renal insufficiency Patient Data Age: 59 Gender: M Height: 1.68 m Weight: 76.9 kg Last Vital Signs Temp 35.8 C L 02/06/20 23:54 Pulse 138 H 02/06/20 23:54 Resp 25 H 02/06/20 23:54 BP 83/61 L 02/06/20 23:54 Pulse Ox 98 02/06/20 23:54 Allergies Allergy/AdvReac Type Severity Reaction Status Date / Time No Known Allergies Allergy Verified 02/06/20 12:17 Home Medications Medication Instructions Recorded Confirmed Type aspirin [Ainsley Chewable Aspirin] 81 mg PO DAILY 01/25/20 02/06/20 History hydrochlorothiazide 25 mg PO DAILY 01/25/20 02/06/20 History lisinopril [Prinivil] 20 mg PO DAILY 01/25/20 02/06/20 History pantoprazole 40 mg PO BID 01/25/20 02/06/20 History piroxicam 20 mg PO DAILY 01/25/20 02/06/20 History amoxicillin 500 mg PO BID 02/06/20 02/06/20 History clarithromycin 500 mg PO BID 02/06/20 02/06/20 History ibuprofen [Advil] 400 mg PO Q6H PRN 02/06/20 02/06/20 History metoprolol succinate 25 mg PO DAILY 02/06/20 02/06/20 History metronidazole 500 mg PO BID 02/06/20 02/06/20 History multivit with min-folic acid 200 mcg PO DAILY 02/06/20 02/06/20 History [Adult Multivitamin Gummies] Laboratory Tests 02/06/20 02/06/20 02/06/20 09:58 09:58 09:58 WBC 11.6 K/mm3 H K/mm3 (4.5-10.0) RBC 2.88 M/mm3 L M/mm3 (4.6-6.20) Hgb 7.8 g/dL L g/dL (14.0-18.0) Hct 25.3 % L % (42.0-52.0) MCV 87.8 fl fl (80-100) MCH 27.1 pg pg (26-34) MCHC 30.8 g/dl L g/dl (32-36) RDW 16.7 % H % (11.5-14.5) Plt Count 385 k/mm3 H k/mm3 (150-375) MPV 10.3 fl fl (7.4-10.4) Immature Gran % (Auto) 1.5 % H % (0-0.5) Neut % (Auto) 66.1 % % (45.5-73.1) Lymph % (Auto) 13.1 % L % (18.3-44.2) Sandoval % (Auto) 7.6 % % (2.6-8.5) Eos % (Auto) 10.8 % H % (0-4.4) Baso % (Auto) 0.9 % % (0.2-1.2) Lymph # (Auto) 1.52 K/mm3 K/mm3 (0.9-3.2) Sandoval # (Auto) 0.9 K/mm3 H K/mm3 (0.1-0.6) Eos # (Auto) 1.3 K/mm3 H K/mm3 (0-0.3) Baso # (Auto) 0.1 K/mm3 K/mm3 (0.0-0.1) Abs Immat Gran (auto) 0.17 K/mm3 H K/mm3 (0.00-0.031) Absolute Neuts (auto) 7.7 K/mm3 H K/mm3 (1.3-6.7) Absolute Nucleated RBC 0.0 K/mm3 K/mm3 (0.0-0.012) Nucleated RBC % 0.0 % % (0.0-0.2) PT 13.9 Seconds Seconds (11.1-14.7) INR 1.1 APTT 26.1 SECONDS SECONDS (22.3-36.8) Puncture Site ABG pH ABG pCO2 ABG pO2 ABG PO2/FiO2 Ratio ABG HCO3 ABG O2 Saturation ABG O2 Content ABG Base Excess A-a Gradient Oxyhemoglobin Total Hemoglobin O2 Delivery Device O2 Liters/Min Minute Volume Vent Rate Vent Mode FiO2 Tidal Volume PEEP Peak Inspir Pressure Pressure Support Sodium 137 mmol/L mmol/L (137-145) Potassium 3.9 mmol/L mmol/L (3.4-5.0) Chloride 105 mmol/L mmol/L (98-107) Carbon Dioxide 25 mmol/L mmol/L (22-30) BUN 30 mg/dL H D mg/dL (9-20) Creatinine 1.70 mg/dL H mg/dL (0.7-1.3) Estim Creat Clear Calc 41 ml/min ml/min Estimated GFR 42 L (59 - ) Glucose 157 mg/dL H mg/dL (75-110) Lactic Acid Calcium 7.7 mg/dL L mg/dL (8.4-10.2) Total Bilirubin < 0.1 mg/dL L mg/dL (0.2-1.3) AST 14 U/L L U/L (17-59) ALT 9 U/L U/L (4-50) Alkaline Phosphatase 46 U/L U/L
[2020-02-07 00:28] LABS: Lactic Acid Reflex 9.4 mmol/L (0.7-2.1)
[2020-02-07 00:31] LABS: Troponin I 0.321 ng/mL (0.000-0.034)
--- NOTE | 2020-02-07 01:05 | PM.OP ---
Procedure Note - Brief Procedure Note - Brief Date of procedure: 02/07/20 Pre-op diagnosis: syncope, renal insufficiency Hematemesis and upper GI bleeding. Procedure performed: EGD Description of procedure: Informed consent is obtained from patient's . The risks benefits alternatives indications are discussed agree to prior to this proceeding with the procedure. Patient is sedated with anesthesia. Description procedure Fujinon video endoscope is passed to the esophagus. NG tube remains in place. The esophagus appeared unremarkable. The stomach reveals a large blood clot within the body of the stomach. Unable to see large portions of the stomach. The duodenum was unable to be intubated. Mucosa of the body of the stomach appears to be consistent with diffuse gastritis. No the the exact site of bleeding could not be identified because of large blood remaining within the body of the stomach. Anesthesia: MAC Surgeon: Kaveh Alcantar MD Findings: Large amount of blood clot remains in the stomach. Apparent gastritis. Plan is to continue NG tube lavage. Protonix drip will continue. Continue monitor hemoglobin transfuse as necessary. Repeat EGD tomorrow after additional gastric lavage.
[2020-02-07 01:59] LABS: Alveolar/Arterial O2 Gradient 247.5 mmHg; Base Excess ABG -17.2 mEq/l (+/-2.0); Fractional Inspired Oxygen 60 %; HCO3 ABG 12.6 mEq/l (22.0-26.0); Oxygen Content ABG 17.1 %vol (16.0-22.0); Oxygen Saturation ABG 97.2 % (95.0-100.0); Oxyhemoglobin 96.7 % THb (90.0-100.0); PCO2 ABG 45.4 mmHg (35.0-45.0); PO2 ABG 130.4 mmHg (80.0-100.0); PO2 FiO2 Ratio Arterial Blood 2.17 %; Total Hemoglobin 12.4 g/dL (12.0-18.0)
--- NOTE | 2020-02-07 01:59 | OP_ITS ---
DATE OF PROCEDURE: 02/07/2020 PROCEDURE PERFORMED: Esophagogastroduodenoscopy. PREOPERATIVE DIAGNOSIS: Hematemesis, upper GI bleeding. POSTOPERATIVE DIAGNOSIS: Gastritis and adherent clot with the body of the stomach. DESCRIPTION OF PROCEDURE: Informed consent was obtained from the patient's family. The risks, benefits, alternatives, indications are agreed to prior to starting sedation. The risks include, but are not limited to, adverse reaction to medications including allergies, the risk of bleeding, possible need for transfusion, the risk of perforation possible need for surgery, and the risk for missed pathology. The family voiced clear understanding, agreed to proceed. The patient is sedated with anesthesia. The patient is already intubated. Fujinon video endoscope was passed through the esophagus, which appears normal. Within the stomach, a large amount of blood is identified, unable to see distinct site of bleeding. The portion of the stomach visualized appears consistent with gastritis, the duodenum itself was unable to be intubated. PLAN: To continue NG tube pass, resuscitate patient with transfusion as necessary. Continue Protonix drip, would follow up EGD in 1 to 2 days, advised after additional gastric lavage. D I MT: Minesh
[2020-02-07 02:02] LABS: pH ABG 7.061 (7.350-7.450)
[2020-02-07 02:03] LABS: Arterial Blood Gas PEEP 5 cmH2O; Arterial Blood Gas Tidal Volume 450 ml; Arterial Blood Gas Vent Mode CMV; Arterial Blood Gas Ventilator rate 15 /MIN; Device VENTILATOR; Site Drawn RIGHT BRACHIAL
[2020-02-07 02:16] LABS: Hematocrit 36.5 % (42.0-52.0); Hemoglobin 11.9 g/dL (14.0-18.0); Mean Corpuscular HGB Conc 32.6 g/dl (32-36); Mean Corpuscular Hemoglobin 30.3 pg (26-34); Mean Corpuscular Volume 92.9 fl (80-100); Mean Platelet Volume 10.7 fl (7.4-10.4); Platelet Count Result 207 k/mm3 (150-375); Red Blood Count 3.93 M/mm3 (4.6-6.20); Red Cell Distribution Width 14.1 % (11.5-14.5); White Blood Count 44.4 K/mm3 (4.5-10.0)
[2020-02-07] MEDS: SODIUM BICARBONATE 8.4% 50 MEQ/50 ML VIAL IV PUSH ×2 (02:33→08:45)
[2020-02-07 02:34] LABS: Blood Urea Nitrogen 39 mg/dL (9-20); Calcium 6.3 mg/dL (8.4-10.2); Carbon Dioxide 15 mmol/L (22-30); Chloride 107 mmol/L (98-107); Estimated CRCL calculation 32 ml/min; Estimated Glomerular Filt Rate 33; Glucose 352 mg/dL (75-110); Potassium 4.8 mmol/L (3.4-5.0); Sodium 134 mmol/L (137-145)
[2020-02-07 02:42] LABS: Band Neutrophils Percent 7 % (0-6); Lymphocytes Absolute Manual 1.33 K/mm3 (1.1-4.5); Monocytes Percent Manual 7 % (3-9); Neutrophils Absolute Manual 39.96 K/mm3 (1.3-6.7); Neutrophils Percent Manual 83 % (46-73); Platelet Estimate Adequate (Adequate); Total Cells Counted 100
[2020-02-07] MEDS: SODIUM CHLORIDE 0.9% IV 500 ML IV CONT ×2 (02:53→05:15)
[2020-02-07 02:55] LABS: Reflex Lactic Acid Yes or No Add Lactic
[2020-02-07] MEDS: HYDROCORTISONE SODIUM SUCCINATE 100 MG/2 ML VIAL IV PUSH (03:48)
[2020-02-07 03:53] LABS: Troponin I 0.312 ng/mL (0.000-0.034)
[2020-02-07] MEDS: NOREPINEPHRINE 8 MG/D5W 250 ML 8 MG/250 ML BAG 56.3 MG IV CONT ×2 (05:08→09:50)
[2020-02-07 05:22] LABS: Add Urine Microscopic? YES; Appearance Urine Clear (Clear); Bacteria Urine Trace /hpf; Bilirubin Urine Negative (Negative); Blood Urine Negative (Negative); Color Urine Yellow (Yellow); Glucose Urine UA 2+ mg/dL (Negative); Ketones Urine Negative (Negative); Leukocyte Esterase Ur Trace LEU/UL (NEGATIVE); Mucus Urine Rare /lpf; Nitrate Urine Negative (Negative); Protein Urine Negative (Negative); RBC Urine 0-2 /hpf (0-2); Specific Grav Ur 1.017 (1.001-1.035); Squamous Epithelial Cell Urine Rare /hpf (Few); Urobilinogen Urine Negative mg/dL (<2.0)
[2020-02-07 05:41] LABS: Lactic Acid Reflex 5.6 mmol/L (0.7-2.1)
[2020-02-07 06:29] LABS: Alveolar/Arterial O2 Gradient 29.7 mmHg; Base Excess ABG -10.4 mEq/l (+/-2.0); Fractional Inspired Oxygen 30 %; HCO3 ABG 15.5 mEq/l (22.0-26.0); Oxygen Content ABG 15.8 %vol (16.0-22.0); Oxygen Saturation ABG 98.5 % (95.0-100.0); Oxyhemoglobin 97.1 % THb (90.0-100.0); PCO2 ABG 34.8 mmHg (35.0-45.0); PO2 ABG 143.3 mmHg (80.0-100.0); PO2 FiO2 Ratio Arterial Blood 4.78 %; Total Hemoglobin 11.4 g/dL (12.0-18.0)
[2020-02-07 06:30] LABS: Device VENTILATOR; Modified Allen's Test Unable to perform; Site Drawn LEFT RADIAL; pH ABG 7.268 (7.350-7.450)
[2020-02-07 06:31] LABS: Arterial Blood Gas PEEP 5 cmH2O; Arterial Blood Gas Tidal Volume 450 ml; Arterial Blood Gas Vent Mode CMV; Arterial Blood Gas Ventilator rate 15 /MIN
[2020-02-07] MEDS: VASOPRESSIN INJ 100 UNITS in DEXTROSE 5% 95 ML IV CONT (06:51)
[2020-02-07 08:53] LABS: INR 1.7; Prothrombin Time 19.2 Seconds (11.1-14.7)
[2020-02-07 08:54] LABS: Partial Thromboplastin Time 29.1 SECONDS (22.3-36.8)
[2020-02-07 08:55] LABS: Magnesium 1.4 mg/dL (1.6-2.3)
[2020-02-07 08:59] LABS: D Dimer 1.18 ug/mL (<0.48)
[2020-02-07 09:08] LABS: Fibrinogen 169 mg/dl (215-510)
[2020-02-07] MEDS: MAGNESIUM SULF 4 GM/WATER100ML 4 GM/100 ML BAG IVPB (09:37)
--- NOTE | 2020-02-07 09:37 | WPDPROCEDUR ---
Procedures Arterial Line Arterial Line Date: 02/07/20 Arterial Line Time: 13:00 Discussed with the patient/family/POA, the placement of an arterial catheter, including its clinical necessity/indication and associated potential risks, benefits and alternatives.: Yes Patient/family/POA and/or understands and acknowledges the need to proceed with the arterial catheter insertion as an important element of the patient's clinical management.: Yes Time Out Performed: Yes Patient Position: supine Site: left and femoral Site Prep: chlorhexidine and sterile drape Skin Anesthesia: 1% lidocaine Technique used: ultrasound-guided Size (Gauge): 16 Length: 12 cm Closure/Dressing: suture, antimicrobial disc and tegaderm Patient tolerated procedure: well Complications: none
--- NOTE | 2020-02-07 09:55 | WPDGIPROGNO ---
Progress Note: A&P Additional Plan Patient now intubated. Remains on the ventilator. Unable to give any additional history. Physical exam reveals patient is blood pressure 70 systolic on pressor agents. NG tube continues to drain maroonish material. Lungs remain clear. Abdomen is soft and nontender. Labs reveal hemoglobin 11-1/2 after 5units of blood. Patient apparently has received 2 additional units after this blood count. WBC 44 K, Impression 1. Hypotension consistent with shock. Patient does not appear to be bleeding at this time suggesting currently and cardiogenic shock. 2. Upper GI bleeding. Patient has had a large amount of GI blood loss. Known to have ulcers by recent EGD at [facility]. Adequate response a blood count to transfusions suggest patient is not actively bleeding. Plan is to a stable lies hemodynamics. Plan EGD likely tomorrow. Continue proton pump inhibitors for known ulcer disease. Monitor hemoglobin closely and transfuse as needed. 2. Leukocytosis. Elevated WBC to 44 K is quite concerning. It is uncertain the etiology of this. Certainly more than demargination would be expected to cause. Cannot exclude aspiration or other infection. Plan is to follow with you and continue supportive care. Patient will be on IV proton pump inhibitor drip. Subjective Date/time seen: 02/07/20 09:55 Objective Data Vital Signs Vital Signs: Vital Signs - 24 hr 02/06/20 10:20 02/06/20 11:03 02/06/20 11:46 Temperature Pulse Rate 101 H 102 H 100 Respiratory Rate 16 18 18 Blood Pressure 116/68 134/95 H 95/56 L Pulse Oximetry 95 94 98 02/06/20 12:00 02/06/20 12:09 02/06/20 14:00 Temperature 36.6 C Pulse Rate 104 H 102 H 95 Respiratory Rate 18 Blood Pressure 112/73 Pulse Oximetry 100 02/06/20 16:00 02/06/20 17:54 02/06/20 18:15 Temperature 36.1 C L 36.8 C Pulse Rate 93 148 H Respiratory Rate 16 22 H Blood Pressure 120/69 107/52 L 83/52 L Pulse Oximetry 100 98 02/06/20 18:41 02/06/20 18:58 02/06/20 19:14 Temperature 35.8 C L 36.8 C Pulse Rate 118 H 143 H 143 H Respiratory Rate 24 H 25 H Blood Pressure 93/50 L 76/55 L Pulse Oximetry 98 100 02/06/20 19:26 02/06/20 19:56 02/06/20 20:00 Temperature 36.8 C 36.0 C L 35.8 C L Pulse Rate 136 H 127 H 127 H Respiratory Rate 25 H 25 H 25 H Blood Pressure 89/61 L 88/56 L 74/57 L Pulse Oximetry 97 99 98 02/06/20 20:04 02/06/20 20:44 02/06/20 21:00 Temperature 35.8 C L 35.8 C L 35.7 C L Pulse Rate 128 H 141 H 128 H Respiratory Rate 25 H 27 H 25 H Blood Pressure 74/57 L 86/66 L 62/33 L Pulse Oximetry 100 98 95 02/06/20 22:00 02/06/20 22:37 02/06/20 22:55 Temperature 35.8 C L 36.6 C 35.8 C L Pulse Rate 119 H 76 138 H Respiratory Rate 20 18 25 H Blood Pressure 95/47 L 71/62 L 109/72 Pulse Oximetry 98 98 99 02/06/20 23:45 02/06/20 23:54 02/07/20 00:00 Temperature 35.8 C L 36.9 C Pulse Rate 129 H 138 H 138 H Respiratory Rate 25 H 20 Blood Pressure 83/61 L 67/30 L Pulse Oximetry 100 98 100 02/07/20 00:30 02/07/20 00:56 02/07/20 01:00 Temperature Pulse Rate 133 H 139 H 137 H Respiratory Rate 29 H 15 17 Blood Pressure 83/59 L 92/74 L 76/61 L Pulse Oximetry 99 100 98 02/07/20 01:13 02/07/20 01:45 02/07/20 01:56 Temperature 35.3 C L Pulse Rate 140 H 137 H Respiratory Rate 15 Blood Pressure 86/63 L Pulse Oximetry 98 98 02/07/20 02:00 02/07/20 02:11 02/07/20 02:26 Temperature 35.7 C L 36.4 C Pulse Rate 132 H Respiratory Rate 18 Blood Pressure 71/33 L Pulse Oximetry 98 02/07/20 02:41 02/07/20 02:56 02/07/20 03:18 Temperature 36.0 C L 36.1 C L 36.7 C Pulse Rate 137 H Respiratory Rate 18 Blood Pressure 99/74 L Pulse Oximetry 98 02/07/20 03:22 02/07/20 03:40 02/07/20 04:00 Temperature 36.0 C L 36.0 C L 36.0 C L Pulse Rate 122 H 135 H Respiratory Rate 19 26 H Blood Pressure 99/74 L 98/68 L Pulse Oximetry 98 98 02/07/20 04:29
--- NOTE | 2020-02-07 09:59 | ECG_ITS ---
Measurements Intervals [place] Rate: 114 P: 53 LA: 147 QRS: 28 QRSD: 88 T: 68 QT: 296 QTc: 408 Interpretive Statements SINUS TACHYCARDIA BORDERLINE ST ABNORMALITY- HIGH LATERAL LEADS ABNORMAL ECG Electronically Signed On 02-07-2020 10:23:47 CDT by Sammy Hinojosa D.O.
--- NOTE | 2020-02-07 10:00 | ECHO_ITS ---
Patient Info Name: Johnson Hall Age: 59 years : 1960 Gender: Male Ht: 66 in Wt: 170 lbs BSA: 1.91 m2 HR: 95 bpm BP: 84 / 49 mmHg Heart Rhythm: Sinus Rhythm Technical Quality: Poor Exam Date: 02/07/2020 12:05 PM Exam Location: [facility] Patient Status: Inpatient Admit Date: 02/07/2020 Staff Ordering Physician: Rick Richardson MD Liaison Planner: Pito Cantor RDCS Attending Provider: Nino Fonseca MD Referring Physician: Debra IRWIN; Exam Type: CA echo dop color flow w con Study Info Indications I21.4 - Non-ST elevation (NSTEMI) myocardial infarction Complete two-dimensional, color flow and Doppler transthoracic echocardiogram is performed with contrast to opacify the left ventricle and to improve the deliniation of the left ventricle endocardial borders. Contrast/Agitated Saline Contrast/Ag. Saline: Definity Amount: 3.00 ml Administered By: Jeyson Pham RN Existing IV Access: Yes Reason for Poor Study: poor echocardiographic windows History/Risk Factors NSTEMI; GIB, CKD3, HTN, near syncope. Summary 1. Left ventricular chamber dimension is normal. 2. Left ventricular systolic function is normal, estimated at 55-60%. 3. There is mildly increased left ventricular wall thickness. 4. The left ventricular diastolic function is grade I diastolic dysfunction. 5. Right ventricular chamber dimension is moderately enlarged. 6. Right ventricular systolic function is reduced. 7. Left atrial chamber dimension is mildly enlarged. 8. The pericardium appears increased echogenicity of the pericardium. 9. There is small pericardial effusion. Left Ventricle Left ventricular chamber dimension is normal. Left ventricular systolic function is normal, estimated at 55-60%. There is mildly increased left ventricular wall thickness. The left ventricular diastolic function is grade I diastolic dysfunction. Right Ventricle Right ventricular chamber dimension is moderately enlarged. Right ventricular systolic function is reduced. Left Atria Left atrial chamber dimension is mildly enlarged. Right Atria Right atrial chamber dimension is normal. Aortic Valve The aortic valve is not well visualized. There is mild aortic valve sclerosis. There is no aortic valve stenosis. There is trace aortic valve regurgitation. Pulmonic Valve The pulmonic valve is not well visualized. There is no pulmonic valve stenosis. There is trace pulmonic regurgitation. Mitral Valve The mitral valve has normal leaflets. There is no mitral valve stenosis. There is trace mitral valve regurgitation. Tricuspid Valve The tricuspid valve leaflets are normal. There is no significant tricuspid valve stenosis. There is trace tricuspid valve regurgitation. Pericardium/Pleural The pericardium appears increased echogenicity of the pericardium. There is small pericardial effusion. Inferior Vena Cava Normal inferior vena cava with >50% collapse upon inspiration consistent with normal right atrial pressure, 5 mmHg. Aorta The aortic root size at the sinus of Valsalva is normal. Left Ventricular Outflow Tract Name Value Normal LVOT 2D LV
[2020-02-07] MEDS: PHENYLEPHRINE HCL 10 MG/ML VIAL 50 MG (10:19)
[2020-02-07 10:40] LABS: Hematocrit 33.6 % (42.0-52.0); Hemoglobin 10.8 g/dL (14.0-18.0)
[2020-02-07 10:55] LABS: Immature Platelet Fraction Pct 10.3 % (0.9-11.2); Mean Platelet Volume 11.1 fl (7.4-10.4); Platelet Count Result 124 k/mm3 (150-375)
--- NOTE | 2020-02-07 11:47 | WPDCNINT ---
Assessment and Plan Assessment and plan (1) Acute respiratory failure: Qualifiers: Respiratory failure complication: unspecified whether with hypoxia or hypercapnia Qualified Code(s): J96.00 - Acute respiratory failure, unspecified whether with hypoxia or hypercapnia Code(s): J96.00 - Acute respiratory failure, unspecified whether with hypoxia or hypercapnia Status: Acute Assessment and Plan: Patient was in hemorrhagic shock, unresponsive with apnea, patient was intubated on 02/06/2020 -currently on CMV mode of ventilation, 30% FiO2, 5 of PEEP. -ABGs and chest x-ray reviewed, ventilator adjusted, increase rate to 18 -most likely respiratory failure related to metabolic acidosis, hemorrhagic shock (2) Hemorrhagic shock: Code(s): R57.8 - Other shock Status: Acute Assessment and Plan: GI bleed with hematemesis, anemia, requiring multiple units of packed RBCs -EGD was done just after midnight on 02/07/2020, which showed large amount of blood clot in the stomach, per gastritis, no intervention could be performed as there was too much blood in the stomach. -plan is to continue NG lavage, Protonix infusion, monitor H&H Q 6 hours and transfuse as necessary. -discuss with wool grower this morning, patient NG tube drainage slowed down significantly, hemoglobin is stable, plan for repeat EGD on 02/08/2020 -patient is on Levophed, vasopressin, Abdoul-Synephrine. Will maintain mean arterial pressures > 65 mmHg -patient was given 1 dose of vancomycin and Zosyn. Will continue Zosyn for possibility of aspiration, WBC count of 44,000 (3) GI bleed: Code(s): K92.2 - Gastrointestinal hemorrhage, unspecified Status: Acute Assessment and Plan: Patient with recent GI bleed at [facility] where an EGD was done and showed 3 bleeding gastric ulcers which were cauterized at the end of December 2019. -GI following patient closely, repeat EGD planned for 02/08/2020 -H&H q.6 hours (4) Elevated troponin: Code(s): R79.89 - Other specified abnormal findings of blood chemistry Status: Acute Assessment and Plan: Patient with elevated troponin, possible NSTEMI from severe hemorrhagic shock/anemia given history of coronary artery disease. This could also be type 2 infarct secondary to hypotension and shock -cardiology is already following the patient, -will obtain echocardiogram to evaluate for wall motion abnormalities -EKG was performed this morning which showed borderline ST abnormalities and high lateral leads -will trend troponin levels (5) Acute kidney injury: Code(s): N17.9 - Acute kidney failure, unspecified Status: Acute Assessment and Plan: Stage 3 chronic kidney disease, now with acute kidney injury with creatinine of 2.10 (creatinine on admission was 1.70) -patient has received IV fluid and multiple units of PRBCs -urine output has been adequate, - continue to monitor renal function, electrolytes and urine output -lactic acidosis likely related to hemorrhagic shock, anemia, decreased end organ perfusion -patient on pressors, will maintain mean arterial pressures > 65 mmHg (6) DVT prophylaxis: Code(s): Z29.9 - Encounter for prophylactic measures, unspecified Status: Acute Assessment and Plan: SCDs (7) Anemia: Qualifiers: Other causes of anemia: acute posthemorrhagic Code(s): D64.9 - Anemia, unspecified Status: Acute Assessment and Plan: Anemia likely related to GI bleed, will continue to monitor H&H and transfuse as required Additional Plan Discussed with patient's spouse Lynnette, updated with patient's condition and plan of care. I explained to her that patient is on 3 blood pressure support medications, on the mechanical ventilator for respiratory support. I did updated her with the EGD report and also mention that a repeat EGD will be done on 02/08/2020. She was appreciative be updating h
[2020-02-07] MEDS: SODIUM BICARBONATE 8.4% 150 MEQ in WATER, STERILE FOR INJECTION 950 ML IV CONT ×2 (11:55→19:14)
[2020-02-07 12:37] LABS: Hematocrit 22.8 % (42.0-52.0); Hemoglobin 7.5 g/dL (14.0-18.0)
[2020-02-07 12:51] LABS: Lactic Acid Reflex 11.4 mmol/L (0.7-2.1)
[2020-02-07 13:46] LABS: Alveolar/Arterial O2 Gradient 242.3 mmHg; Base Excess ABG -13.5 mEq/l (+/-2.0); Fractional Inspired Oxygen 60 %; HCO3 ABG 14.1 mEq/l (22.0-26.0); Oxygen Content ABG 10.8 %vol (16.0-22.0); Oxygen Saturation ABG 98.2 % (95.0-100.0); Oxyhemoglobin 96.4 % THb (90.0-100.0); PO2 ABG 141.5 mmHg (80.0-100.0); PO2 FiO2 Ratio Arterial Blood 2.36 %
[2020-02-07 13:47] LABS: Device VENTILATOR; Site Drawn ARTLINE; Total Hemoglobin 7.7 g/dL (12.0-18.0); pH ABG 7.165 (7.350-7.450)
[2020-02-07 13:48] LABS: Arterial Blood Gas PEEP 5 cmH2O; Arterial Blood Gas Tidal Volume 450 ml; Arterial Blood Gas Vent Mode CMV; Arterial Blood Gas Ventilator rate 20 /MIN
--- NOTE | 2020-02-07 14:11 | PM.CNGS ---
Assessment and Plan Assessment and plan (1) GI bleed: Onset Date: ~12/2019 Code(s): K92.2 - Gastrointestinal hemorrhage, unspecified Status: Acute Assessment and Plan: The risks benefits and possible complications of an exploratory laparotomy, gastrotomy and possible over-sewing of a gastric ulcer, versus gastrectomy have been discussed with the patient's and her son. Patient's knows that he is in critical condition and in some element of hemorrhagic shock. She knows that there are risks for heart attack, stroke, and continuing bleeding that is difficult to control and/or possibility of during surgery. At this time she would like to have us do all possible to save her but she is on well aware of the possible risks and feels like that we should let her know if he has no hope for survival, because then she would like to make him a DNR. (2) Hemorrhagic shock: Onset Date: ~02/07/20 Code(s): R57.8 - Other shock Status: Acute Assessment and Plan: Patient's hemoglobin dropped from 11-7.8 he has received a total now of 9 units of blood and his blood pressure is above 100 systolic but pH is low and he is sedated. (3) Acute respiratory failure: Onset Date: ~02/07/20 Qualifiers: Respiratory failure complication: unspecified whether with hypoxia or hypercapnia Qualified Code(s): J96.00 - Acute respiratory failure, unspecified whether with hypoxia or hypercapnia Code(s): J96.00 - Acute respiratory failure, unspecified whether with hypoxia or hypercapnia Status: Acute Assessment and Plan: Patient is on a ventilator at this time for support. (4) Anemia: Onset Date: ~01/2020 Qualifiers: Other causes of anemia: acute posthemorrhagic Code(s): D64.9 - Anemia, unspecified Status: Acute Assessment and Plan: Last hemoglobin 7.8. (5) Acute kidney injury: Code(s): N17.9 - Acute kidney failure, unspecified Status: Acute (6) Gastric ulcer: Code(s): K25.9 - Gastric ulcer, unspecified as acute or chronic, without hemorrhage or perforation Status: Acute (7) Chronic renal failure, stage 3 (moderate): Code(s): N18.3 - Chronic kidney disease, stage 3 (moderate) Status: Chronic (8) CAD (coronary artery disease): Code(s): I25.10 - Atherosclerotic heart disease of tetlin coronary artery without angina pectoris Status: Chronic (9) H. pylori infection: Code(s): A04.8 - Other specified bacterial intestinal infections Status: Acute History of Present Illness Consult details Consult date: 02/07/20 Reason for consult: other (GI bleeding) Requesting physician: Rick Richardson MD Narrative: Patient is a 59-year-old white male with a history of hypertension, coronary artery disease, smoking, and diabetes mellitus type 2. Apparently about 2 weeks ago the patient had a syncopal episode and fell. He was evaluated with [place] emergency room and on toward fracture was identified. Because of that he was transferred to [facility] in [place] and they decided they did not need operate on his undone toward fracture knees in a brace. While there our a word a finding that he was having a dropping hemoglobin and a upper GI endoscopy revealed 3 gastric ulcers and the bleeding from these. These apparently were cauterized and adequate. He did even went home and did well for about a week and a half but then presented back to the hospital 2 days ago with another syncopal episode. Hemoglobin was up to 11.9 last night with about 3 units of blood of with any bent began bleeding more and Dr. Alcantar scoped the patient he could see only raw surface in the stomach and no specific bleeding sites with a lot of blood and therefore a was kept on this pressors overnight and transfused. He has gradually dropped his hemoglobin from 11.8-7.6 today. It does not appear that we
[2020-02-07] MEDS: SODIUM CHLORIDE 0.9% IV 1,000 ML 999 ML (14:27)
--- NOTE | 2020-02-07 15:21 | WPDANESEPPF ---
Anes - Initial Pre Proc Eval Procedure: Operation Date: 02/07/20 00:00 Proposed Procedures p Esophagogastroduodenoscopy - Kaveh Alcantar MD Operation Date: 02/07/20 15:30 Proposed Procedures p Exploratory Laparotomy, - Simón Butterfield MD s Possible Gastric Resection, Possible Over Sewing Of Gastric Ulcer, Possible Insertion Of Gastrostomy Tube - Simón Butterfield MD Operation Date: 02/08/20 09:30 Proposed Procedures p Esophagogastroduodenoscopy - Kaveh Alcantar MD Date/Time: 02/07/20 15:21 Surgeon: Pietro Fonseca MD Pre Op Diagnosis: syncope, renal insufficiency Patient Data Age: 59 Gender: M Height: 5 ft 6 in Weight: 76.9 kg Last Vital Signs Temp 35.5 C L 02/07/20 14:46 Pulse 109 H 02/07/20 14:46 Resp 14 02/07/20 14:46 BP 124/66 02/07/20 14:46 Pulse Ox 100 02/07/20 14:46 Allergies Allergy/AdvReac Type Severity Reaction Status Date / Time No Known Allergies Allergy Verified 02/06/20 12:17 Home Medications Medication Instructions Recorded Confirmed Type aspirin [Ainsley Chewable Aspirin] 81 mg PO DAILY 01/25/20 02/06/20 History hydrochlorothiazide 25 mg PO DAILY 01/25/20 02/06/20 History lisinopril [Prinivil] 20 mg PO DAILY 01/25/20 02/06/20 History pantoprazole 40 mg PO BID 01/25/20 02/06/20 History piroxicam 20 mg PO DAILY 01/25/20 02/06/20 History amoxicillin 500 mg PO BID 02/06/20 02/06/20 History clarithromycin 500 mg PO BID 02/06/20 02/06/20 History ibuprofen [Advil] 400 mg PO Q6H PRN 02/06/20 02/06/20 History metoprolol succinate 25 mg PO DAILY 02/06/20 02/06/20 History metronidazole 500 mg PO BID 02/06/20 02/06/20 History multivit with min-folic acid 200 mcg PO DAILY 02/06/20 02/06/20 History [Adult Multivitamin Gummies] Laboratory Tests 02/06/20 02/06/20 02/06/20 10:20 15:39 18:47 WBC RBC Hgb 5.6 g/dL L* g/dL (14.0-18.0) Hct 18.6 % L* % (42.0-52.0) MCV MCH MCHC RDW Plt Count MPV Immature Gran % (Auto) Neut % (Auto) Lymph % (Auto) [place] % (Auto) Eos % (Auto) Baso % (Auto) Lymph # (Auto) [place] # (Auto) Eos # (Auto) Baso # (Auto) Abs Immat Gran (auto) Absolute Neuts (auto) Absolute Nucleated RBC Total Counted Neutrophils % (Manual) Band Neutrophils % Lymphocytes % (Manual) Monocytes % (Manual) Nucleated RBC % Abs Neuts (Manual) Abs Lymphs (Manual) Abs Monocytes (Manual) Platelet Estimate % Immature Plt Fraction PT INR APTT Fibrinogen D-Dimer Puncture Site ABG pH ABG pCO2 ABG pO2 ABG PO2/FiO2 Ratio ABG HCO3 ABG O2 Saturation ABG O2 Content ABG Base Excess A-a Gradient Oxyhemoglobin Total Hemoglobin O2 Delivery Device O2 Liters/Min Minute Volume Vent Rate Vent Mode FiO2 Tidal Volume PEEP Peak Inspir Pressure Pressure Support Sodium Potassium Chloride Carbon Dioxide BUN Creatinine Estim Creat Clear Calc Estimated GFR Glucose Lactic Acid Calcium Magnesium Troponin I 0.076 ng/mL H* D ng/mL (0.000-0.034) Urine Color Urine Appearance Urine pH Ur Specific [place] Urine Protein Urine Glucose (UA)
[2020-02-07 15:33] LABS: Reflex Lactic Acid Yes or No Add Lactic
--- NOTE | 2020-02-07 15:48 | PC.NURSE ---
After Dr. Alcantar was here and Dr. brock placed a left fem a-line placed, Dr. Butterfield consulted for surgery and patients and son here, at 1520 after 2 more units of blood given, and vaso meds titrated, pt went to surgery at 1520 via bed
[2020-02-07 16:07] LABS: Alveolar/Arterial O2 Gradient 368.6 mmHg; Base Excess ABG -10.6 mEq/l (+/-2.0); Carboxyhemoglobin 0.1 % THb (0-2.0); Fractional Inspired Oxygen 100 %; HCO3 ABG 18.5 mEq/l (22.0-26.0); Methemoglobin ABG 0.6 %THb (0-1.5); Oxygen Saturation ABG 99.5 % (95.0-100.0); Oxyhemoglobin 97.4 % THb (90.0-100.0); PCO2 ABG 56.8 mmHg (35.0-45.0); PO2 ABG 287.6 mmHg (80.0-100.0); PO2 FiO2 Ratio Arterial Blood 2.88 %; Reduced Hemoglobin 1.9 %THb (0-5.0); Total Hemoglobin 10.4 g/dL (12.0-18.0)
[2020-02-07 16:11] LABS: Device VENTILATOR; Site Drawn ARTLINE; pH ABG 7.131 (7.350-7.450)
[2020-02-07 16:14] LABS: Arterial Blood Gas PEEP 5 cmH2O; Arterial Blood Gas Tidal Volume 450 ml; Arterial Blood Gas Vent Mode CMV; Arterial Blood Gas Ventilator rate 20 /MIN
--- NOTE | 2020-02-07 16:21 | PM.IMPN ---
Progress Note: A&P Assessment and Plan (1) Hemorrhagic shock: Onset Date: ~02/07/20 Code(s): R57.8 - Other shock Status: Resolved Assessment and Plan: Remains on two pressors still. More stable and Hgb 11. Lactic acid was up to 11 earlier today with pH 7.1. Still on sodium bicarb. Continue to monitor. Good UOP noted. (2) Acute respiratory failure: Onset Date: ~02/07/20 Qualifiers: Respiratory failure complication: unspecified whether with hypoxia or hypercapnia Qualified Code(s): J96.00 - Acute respiratory failure, unspecified whether with hypoxia or hypercapnia Code(s): J96.00 - Acute respiratory failure, unspecified whether with hypoxia or hypercapnia Status: Acute Assessment and Plan: Sascha intubated and sedated. Wean pressors. CXR clear this morning so may be able to extubate easily once he is more hemodynamically stable. Appreciate intensivst input. (3) Gastric ulcer: Code(s): K25.9 - Gastric ulcer, unspecified as acute or chronic, without hemorrhage or perforation Status: Acute Assessment and Plan: Sascha had known gastric ulcers prior to admission. Was being treated for Hpylori. Now POD #0 for gastrotomy for bleeding gastric ulcer at the cardia of the stomach and placement of gastrostomy tube. Continue routine post-op managemtn. Appreciate Gen surg input. (4) C2 cervical fracture: Onset Date: Unknown Code(s): S12.100A - Unspecified displaced fracture of second cervical vertebra, initial encounter for closed fracture Status: Acute Assessment and Plan: Patient with recent hx of odontoid fracture and currently in C-collar. Continue the same. (5) Elevated troponin: Code(s): R79.89 - Other specified abnormal findings of blood chemistry Status: Acute Assessment and Plan: Trop to 0.717. [place] to have Type II VT related to HoTN and acute blood loss. (6) Syncope: Code(s): R55 - Syncope and collapse Status: Chronic Assessment and Plan: Related to acute GI bleed and hemorrhagic shock. (7) GI bleed: Onset Date: ~12/2019 Code(s): K92.2 - Gastrointestinal hemorrhage, unspecified Status: Acute Assessment and Plan: Related to gastric ulcer. (8) Anemia: Onset Date: ~01/2020 Qualifiers: Other causes of anemia: acute posthemorrhagic Code(s): D64.9 - Anemia, unspecified Status: Acute Assessment and Plan: Patient with acute blood loss anemia. As above. Penny FRIAS closely. Transfuse as needed. (9) CAD (coronary artery disease): Code(s): I25.10 - Atherosclerotic heart disease of [place] coronary artery without angina pectoris Status: Chronic Assessment and Plan: Noted. ASA on hold. (10) H. pylori infection: Code(s): A04.8 - Other specified bacterial intestinal infections Status: Acute Assessment and Plan: Patient diagnosed with Hpylori at the outside hospital. Currently on broad spectrum abx. Oral abx on hold. (11) Hypertension: Code(s): I10 - Essential (primary) hypertension Status: Chronic Assessment and Plan: As above. Lisinopril and hydrochlorothiazide on hold. (12) Chronic renal failure, stage 3 (moderate): Code(s): N18.3 - Chronic kidney disease, stage 3 (moderate) Status: Chronic Assessment and Plan: Cr 1.7 on admission and now up to 2.1. Cr in December was 2.0 so felt patient is at his baseline. Continue to monitor. (13) DVT prophylaxis: Code(s): Z29.9 - Encounter for prophylactic measures, unspecified Status: Acute Assessment and Plan: SCDs Subjective Date/time seen: 02/07/20 16:21 Interval history: 59yo male here for hemorragic shock and respiratory failure. Assuming care. Chart reviewed. Patient back from surgery for exploaratory lap
[2020-02-07] MEDS: HEMOSTATIC MATRIX (SURGIFLO with THROMBIN) KIT 1 KIT XX (16:28)
--- NOTE | 2020-02-07 17:06 | SUR.OPER ---
gold necklace to family
--- NOTE | 2020-02-07 17:25 | SUR.OPER ---
[id number]
--- NOTE | 2020-02-07 18:01 | PM.PROC ---
Procedure Note - Detailed Date of procedure: 02/07/20 Pre-op diagnosis: syncope, renal insufficiency GI bleed, suspected bleeding gastric ulcer Post-op diagnosis: other (GI bleed, gastric ulcer at the cardia of the stomach) Procedure performed: 1. Exploratory laparotomy 2. Gastrotomy with over still some lying of bleeding gastric ulcer cardia of the stomach and application of anticoagulant 3. Placement of gastrostomy tube Description of procedure: I obtained written and verbal consent from the patient's because the patient was intubated and in critical condition in ICU. Patient was brought to the operating room and switched from his ICU bed to the operating room table. We carefully positioned him and padding his head and his neck brace while leaving him intubated. A left femoral art line was in place and a right femoral CVP line was in place and 2 peripheral IVs were in place. Patient's abdomen was exposed. 100 cc of urine was emptied from his French catheter at the beginning of the procedure. This was dark yellow. Following this the entire abdomen was prepped and draped in the usual sterile fashion. Time-out was then performed confirming patient site of surgery. Following we carefully draped the patient for a midline incision. Midline incision was made in standard fashion from the xiphoid to just to the left side of the umbilicus. I carefully carried this down through subcutaneous tissues to expose the midline linea alba and this was incised and we entered the abdomen just to the left of the falciform under direct vision. There was no significant ascities or fluid within the abdomen. Careful exploration of the upper abdomen revealed a very distended stomach while the small bowel appeared normal, as did the colon and I did not bring the small bowel out of the abdomen to run it and I did not necessarily palpate the colon. No other abnormalities were identified. I carefully pa[pated the GE junction and the NG tube was in place. Following this a small incision was made approximately 10-15 cm proximal to the pylorus on the anterior surface of the stomach immediately upon opening this 1 cm area on the anterior wall the stomach there was dark blood clot ween to be coming out. We suctioned this a little bit and then I put a 100 mm JANINE into this opening and made a gastrotomy on the front of the stomach headed toward the cardia with the JANINE stapler. This gave good hemostasis along the edges of this opening. Following this we carefully extracted about 1600 cc of blood clot from the stomach. We then carefully irrigated the stomach and inspected the lining. Inspecting the mucosa toward the pylorus revealed no significant gastritis or ulcers and no significant bleeding. body halls of the stomach also seemed to be this way with no significant inflammation of the wall inner lining of the stomach.The difficulty was seeing up into the upper end of the stomach near the near the cardia. We accoplished this while carefully using 3 different malleable retractors to place in the gastrotomy and expose the upper lining of the stomach. Finally we were able to see what appeared to be an ulcer with some clot on it in the cardia of the stomach perhaps 2-3 cm distal to the GE junction. I was able to get a 3 0 silk suture into this and tie it and this seemed to significantly slow the bleeding. We then placed a 4 x 4 on this and held pressure. We waited for 2 minutes and then we reinspected it. There was still a little bit of bleeding but we could better see the ulcer so 2- 0 silk was placed with a [id number] suture into this abnormal ulcerated area and this was tied down also. This appeared to stop the majority of any bleeding that was apparently related to gastritis along that side of the stomach also. We could see nothing on the anterior surface of the stomach to show any other signs of bleeding. Following this we carefully placed a 4 x 4 over this area and held pressure on
[2020-02-07 18:17] LABS: Hematocrit 32.7 % (42.0-52.0); Hemoglobin 11.3 g/dL (14.0-18.0)
[2020-02-07 18:37] LABS: Lactic Acid 7.4 mmol/L (0.7-2.1)
[2020-02-07 18:44] LABS: Troponin I 0.717 ng/mL (0.000-0.034)
[2020-02-07] MEDS: NOREPINEPHRINE 8 MG/D5W 250 ML 8 MG/250 ML BAG 28.1 MG IV CONT (20:27)
[2020-02-07 22:58] LABS: Hematocrit 33.3 % (42.0-52.0); Hemoglobin 11.6 g/dL (14.0-18.0)
[2020-02-07 23:09] LABS: Lactic Acid Reflex 3.5 mmol/L (0.7-2.1)
[2020-02-08] VITALS (24 sets, daily range): BP systolic 82–124; BP diastolic 54–77; PULSE 79–104; RESP 15–28; TEMP 36.9–37.7; O2SAT 99–100
[2020-02-08] MEDS: SODIUM BICARBONATE 8.4% 150 MEQ in WATER, STERILE FOR INJECTION 950 ML IV CONT (02:57)
[2020-02-08 03:15] LABS: Hematocrit 31.9 % (42.0-52.0); Hemoglobin 11.3 g/dL (14.0-18.0); Immature Platelet Fraction Pct 13.2 % (0.9-11.2); Mean Corpuscular HGB Conc 35.4 g/dl (32-36); Mean Corpuscular Volume 84.6 fl (80-100); Mean Platelet Volume 11.7 fl (7.4-10.4); Platelet Count Result 60 k/mm3 (150-375); Red Blood Count 3.77 M/mm3 (4.6-6.20); Red Cell Distribution Width 14.4 % (11.5-14.5); White Blood Count 25.4 K/mm3 (4.5-10.0)
[2020-02-08 03:32] LABS: INR 1.5; Prothrombin Time 17.7 Seconds (11.1-14.7)
[2020-02-08 03:33] LABS: Partial Thromboplastin Time 27.5 SECONDS (22.3-36.8)
[2020-02-08 03:46] LABS: Alanine Aminotransferase 91 U/L (4-50); Alkaline Phosphatase 37 U/L (38-126); Aspartate Amino Transferase 190 U/L (17-59); Bilirubin,Total 0.3 mg/dL (0.2-1.3); Blood Urea Nitrogen 40 mg/dL (9-20); Calcium 6.2 mg/dL (8.4-10.2); Carbon Dioxide 31 mmol/L (22-30); Chloride 95 mmol/L (98-107); Estimated CRCL calculation 37 ml/min; Estimated Glomerular Filt Rate 39; Glucose 199 mg/dL (75-110); Magnesium 1.7 mg/dL (1.6-2.3); Phosphorus 2.5 mg/dL (2.5-4.5); Potassium 4.2 mmol/L (3.4-5.0); Sodium 129 mmol/L (137-145)
[2020-02-08 04:18] LABS: Alveolar/Arterial O2 Gradient 164.5 mmHg; Base Excess ABG 5.1 mEq/l (+/-2.0); Carboxyhemoglobin 0.3 % THb (0-2.0); Fractional Inspired Oxygen 40 %; HCO3 ABG 28.2 mEq/l (22.0-26.0); Methemoglobin ABG 0.4 %THb (0-1.5); Oxygen Content ABG 15.7 %vol (16.0-22.0); Oxygen Saturation ABG 96.7 % (95.0-100.0); Oxyhemoglobin 94.8 % THb (90.0-100.0); PCO2 ABG 36.1 mmHg (35.0-45.0); PO2 ABG 79.2 mmHg (80.0-100.0); PO2 FiO2 Ratio Arterial Blood 1.98 %; Reduced Hemoglobin 4.5 %THb (0-5.0); Total Hemoglobin 11.7 g/dL (12.0-18.0)
[2020-02-08 04:19] LABS: Device VENTILATOR; Site Drawn ARTLINE
[2020-02-08 04:20] LABS: Arterial Blood Gas PEEP 5 cmH2O; Arterial Blood Gas Tidal Volume 450 ml; Arterial Blood Gas Vent Mode CMV; Arterial Blood Gas Ventilator rate 20 /MIN
[2020-02-08 08:06] LABS: Hematocrit 28.6 % (42.0-52.0); Hemoglobin 10.3 g/dL (14.0-18.0)
[2020-02-08] MEDS: LACTATED RINGERS 1,000 ML 75 ML IV CONT ×2 (08:08→22:16)
[2020-02-08] MEDS: CALCIUM GLUC 2,000 MG/NS 100ML 2,000 MG/100 ML BAG 100 MG IVPB (08:08)
[2020-02-08 08:18] LABS: Lactic Acid Reflex 2.6 mmol/L (0.7-2.1)
--- NOTE | 2020-02-08 09:22 | WPDANESPN ---
Anes - Prog Note Post-Op Date/Time: 02/08/20 09:22 Cardiovascular status: other (management per ICU team) Respiratory status: other (intubated and ventilated) Airway patency: other (intubated) Mental status: other (sedated per ICU team) Post-Op hydration status: other (management per ICU team) Vital Signs: Last Vital Signs Temp 37.7 C H 02/08/20 06:00 Pulse 97 02/08/20 07:56 Resp 20 02/08/20 06:00 BP 88/61 L 02/08/20 06:00 Pulse Ox 99 02/08/20 07:56 I/O: Intake & Output 02/07/20 02/08/20 02/08/20 23:59 07:59 15:59 Intake Total 2888 1950 Output Total 500 1250 Balance 2388 700 Laboratory Tests 02/08/20 08:01 02/08/20 03:02 02/06/20 02/07/20 02/07/20 10:20 08:26 08:26 WBC RBC Hgb 10.8 L Hct 33.6 L MCV MCH MCHC RDW Plt Count 124 L MPV 11.1 H % Immature Plt Fraction 10.3 PT INR APTT Puncture Site ABG pH ABG pCO2 ABG pO2 ABG PO2/FiO2 Ratio ABG HCO3 ABG O2 Saturation ABG O2 Content ABG Base Excess A-a Gradient Oxyhemoglobin Carboxyhemoglobin Methemoglobin Reduced Hemoglobin Total Hemoglobin O2 Delivery Device O2 Liters/Min Minute Volume Vent Rate Vent Mode FiO2 Tidal Volume PEEP Peak Inspir Pressure Pressure Support Sodium Potassium Chloride Carbon Dioxide BUN Creatinine Estim Creat Clear Calc Estimated GFR Glucose Lactic Acid Calcium Phosphorus Magnesium Total Bilirubin AST ALT Alkaline Phosphatase Troponin I Total Protein Albumin Blood Type A Negative Antibody Screen Negative Crossmatch See Detail 02/07/20 02/07/20 02/07/20 12:27 12:27 13:29 WBC RBC Hgb 7.5 L D Hct 22.8 L MCV MCH MCHC RDW Plt Count MPV % Immature Plt Fraction PT INR APTT Puncture Site Artline ABG pH 7.165 L* ABG pCO2 40.0 ABG pO2 141.5 H ABG PO2/FiO2 Ratio 2.36 ABG HCO3 14.1 L ABG O2 Saturation 98.2 ABG O2 Content 10.8 L ABG Base Excess -13.5 A-a Gradient 242.3 Oxyhemoglobin 96.4 Carboxyhemoglobin Methemoglobin Reduced Hemoglobin Total Hemoglobin 7.7 L* O2 Delivery Device Ventilator O2 Liters/Min Not Reportable Minute Volume Not Reportable Vent Rate 20 Vent Mode Cmv FiO2 60 Tidal Volume 450 PEEP 5 Peak Inspir Pressure Not Reportable Pressure Support Not Reportable Sodium Potassium Chloride Carbon Dioxide BUN Creatinine Estim Creat Clear Calc Estimated GFR Glucose Lactic Acid 11.4 H* Calcium Phosphorus Magnesium Total Bilirubin AST ALT Alkaline Phosphatase Troponin I Total Protein Albumin Blood Type Antibody Screen Crossmatch 02/07/20 02/07/20 02/07/20 15:52 18:09 18:09 WBC RBC Hgb 11.3 L D Hct 32.7 L MCV MCH MCHC RDW Plt Count MPV % Immature Plt Fraction PT INR APTT Puncture Site Artline ABG pH 7.131 L* ABG pCO2 56.8 H ABG pO2 287.6 H ABG PO2/FiO2 Ratio 2.88 ABG HCO3 18.5 L ABG O2 Saturation 99.5 ABG O2 Content 15.0 L ABG Base Excess -10.6 A-a Gradient 368.6 Oxyhemoglobin 97.4 Carboxyhemoglobin 0.1 Methemoglobin 0.6 Reduced Hemoglobin 1.9 Total Hemoglobin 10.4 L O2 Delivery Device Ventilator O2 Liters/Min Wares Sorter Minute Volume Not Reportable Vent Rate 20 Vent Mode Cmv FiO2 100 Tidal Volume 450 PEEP 5 Peak Inspir Pressure Not Reportable Pressure Support Not Reportable Sodium Potassium Chloride Carbon Dioxide BUN Creatinine Estim Creat Clear Calc Estimated GFR Glucose Lactic Acid Calcium Phosphorus Magnesium Total Bilirubin AST ALT Alkaline Phosphatase Troponin I 0.717 H*
[2020-02-08] MEDS: SODIUM CHLORIDE 0.9% IV 250 ML 30 ML IV CONT (09:27)
--- NOTE | 2020-02-08 09:36 | WPDCNINT ---
Assessment and Plan Assessment and plan (1) Acute respiratory failure: Onset Date: ~02/07/20 Qualifiers: Respiratory failure complication: unspecified whether with hypoxia or hypercapnia Qualified Code(s): J96.00 - Acute respiratory failure, unspecified whether with hypoxia or hypercapnia Code(s): J96.00 - Acute respiratory failure, unspecified whether with hypoxia or hypercapnia Status: Acute Assessment and Plan: Patient was in hemorrhagic shock, unresponsive with apnea, patient was intubated on 02/06/2020 -currently on CMV mode of ventilation, 30% FiO2, 5 of PEEP. -ABGs and chest x-ray reviewed, ventilator adjusted, increase rate to 18 -most likely respiratory failure related to metabolic acidosis, hemorrhagic shock (2) Hemorrhagic shock: Onset Date: ~02/07/20 Code(s): R57.8 - Other shock Status: Acute Assessment and Plan: GI bleed with hematemesis, anemia, requiring multiple units of packed RBCs -EGD was done just after midnight on 02/07/2020, which showed large amount of blood clot in the stomach, per gastritis, no intervention could be performed as there was too much blood in the stomach. -plan is to continue NG lavage, Protonix infusion, monitor H&H Q 6 hours and transfuse as necessary. -discuss with waste elimination this morning, patient NG tube drainage slowed down significantly, hemoglobin is stable, plan for repeat EGD on 02/08/2020 -patient is on Levophed, vasopressin, Abdoul-Synephrine. Will maintain mean arterial pressures > 65 mmHg -patient was given 1 dose of vancomycin and Zosyn. Will continue Zosyn for possibility of aspiration, WBC count of 44,000 (3) GI bleed: Onset Date: ~12/2019 Code(s): K92.2 - Gastrointestinal hemorrhage, unspecified Status: Acute Assessment and Plan: Patient with recent GI bleed at [facility] where an EGD was done and showed 3 bleeding gastric ulcers which were cauterized at the end of December 2019. -GI following patient closely, repeat EGD planned for 02/08/2020 -H&H q.6 hours (4) Elevated troponin: Code(s): R79.89 - Other specified abnormal findings of blood chemistry Status: Acute Assessment and Plan: Patient with elevated troponin, possible NSTEMI from severe hemorrhagic shock/anemia given history of coronary artery disease. This could also be type 2 infarct secondary to hypotension and shock -cardiology is already following the patient, -will obtain echocardiogram to evaluate for wall motion abnormalities -EKG was performed this morning which showed borderline ST abnormalities and high lateral leads -will trend troponin levels (5) Acute kidney injury: Code(s): N17.9 - Acute kidney failure, unspecified Status: Acute Assessment and Plan: Stage 3 chronic kidney disease, now with acute kidney injury with creatinine of 2.10 (creatinine on admission was 1.70) -patient has received IV fluid and multiple units of PRBCs -urine output has been adequate, - continue to monitor renal function, electrolytes and urine output -lactic acidosis likely related to hemorrhagic shock, anemia, decreased end organ perfusion -patient on pressors, will maintain mean arterial pressures > 65 mmHg (6) DVT prophylaxis: Code(s): Z29.9 - Encounter for prophylactic measures, unspecified Status: Acute Assessment and Plan: SCDs (7) Anemia: Onset Date: ~01/2020 Qualifiers: Other causes of anemia: acute posthemorrhagic Code(s): D64.9 - Anemia, unspecified Status: Acute Assessment and Plan: Anemia likely related to GI bleed, will continue to monitor H&H and transfuse as required Additional Plan Discussed with patient's spouse Lynnette, updated with patient's condition and plan of care. I explained to her that patient is on 3 blood pressure support medications, on the mechanical ventilator for respiratory support. I did updated her with t
--- NOTE | 2020-02-08 09:39 | WPDINTPN ---
Progress Note: A&P Assessment and Plan (1) Acute respiratory failure: Onset Date: ~02/07/20 Qualifiers: Respiratory failure complication: unspecified whether with hypoxia or hypercapnia Qualified Code(s): J96.00 - Acute respiratory failure, unspecified whether with hypoxia or hypercapnia Code(s): J96.00 - Acute respiratory failure, unspecified whether with hypoxia or hypercapnia Status: Acute Assessment and Plan: Patient was in hemorrhagic shock, unresponsive with apnea, patient was intubated on 02/06/2020 -currently on CMV mode of ventilation, 30% FiO2, 5 of PEEP. -ABGs and chest x-ray reviewed, ventilator adjusted, respiratory rate decreased -most likely respiratory failure related to metabolic acidosis, hemorrhagic shock (2) Hemorrhagic shock: Onset Date: ~02/07/20 Code(s): R57.8 - Other shock Status: Acute Assessment and Plan: GI bleed with hematemesis, anemia, requiring multiple units of packed RBCs -EGD was done just after midnight on 02/07/2020, which showed large amount of blood clot in the stomach, per gastritis, no intervention could be performed as there was too much blood in the stomach. -continue Protonix infusion, H&H q.6 hours -02/07/2020: Status post gastrotomy with over stage for bleeding gastric ulcer at the cardia of the stomach and application of anticoagulant, placement of gastrostomy tube -patient is on Levophed and vasopressin. Epinephrine and Abdoul-Synephrine were discontinued. Will maintain mean arterial pressures > 65 mmHg -continue vancomycin and Zosyn. WBC count trending down (3) GI bleed: Onset Date: ~12/2019 Code(s): K92.2 - Gastrointestinal hemorrhage, unspecified Status: Acute Assessment and Plan: Patient with recent GI bleed at [facility] where an EGD was done and showed 3 bleeding gastric ulcers which were cauterized at the end of December 2019. -GI following patient closely, - 02/07/2020: Status post gastrotomy with over stage for bleeding gastric ulcer at the cardia of the stomach and application of anticoagulant, placement of gastrostomy tube -received a total of 11 units packed RBCs since admission - , 2 units of FFP is, 1 unit of cryoprecipitate -H&H q.6 hours -platelet counts of 60 this morning, will transfuse 1 unit of platelets (4) Elevated troponin: Code(s): R79.89 - Other specified abnormal findings of blood chemistry Status: Acute Assessment and Plan: Patient with elevated troponin, possible NSTEMI from severe hemorrhagic shock/anemia given history of coronary artery disease. This could also be type 2 infarct secondary to hypotension and shock -cardiology is already following the patient, -echocardiogram 02/07/2020: LV systolic function is normal EF 55-60%. Grade 1 diastolic dysfunction, right ventricular systolic function is reduced -EKG was performed this morning which showed borderline ST abnormalities and high lateral leads (5) Acute kidney injury: Code(s): N17.9 - Acute kidney failure, unspecified Status: Acute Assessment and Plan: Stage 3 chronic kidney disease, -urine output has been adequate, creatinine is trending down -patient has received multiple units of blood products -will discontinue sodium bicarb infusion - continue to monitor renal function, electrolytes and urine output -lactic acid 2.6 from 11.4 on 02/07/2020 -patient on pressors, will maintain mean arterial pressures > 65 mmHg (6) DVT prophylaxis: Code(s): Z29.9 - Encounter for prophylactic measures, unspecified Status: Acute Assessment and Plan: SCDs, no chemoprophylaxis given GI hemorrhage and hemorrhagic shock (7) Anemia: Onset Date: ~01/2020 Qualifiers: Other causes of anemia: acute posthemorrhagic Code(s): D64.9 - Anemia, unspecified Status: Acute Assessment and Plan: Anemia likely related to GI bleed, will continue
--- NOTE | 2020-02-08 10:02 | PM.IMPN ---
Progress Note: A&P Assessment and Plan (1) Hemorrhagic shock: Onset Date: ~02/07/20 Code(s): R57.8 - Other shock Status: Resolved Assessment and Plan: Remains on two pressors still. BP more stable and Hgb 11. Lactic acid was up to 11 with pH 7.1 but better today at 2.6 with pH 7.5. Sodium bicarb stopped. Good UOP noted. Continue to monitor. (2) Acute respiratory failure: Onset Date: ~02/07/20 Qualifiers: Respiratory failure complication: unspecified whether with hypoxia or hypercapnia Qualified Code(s): J96.00 - Acute respiratory failure, unspecified whether with hypoxia or hypercapnia Code(s): J96.00 - Acute respiratory failure, unspecified whether with hypoxia or hypercapnia Status: Acute Assessment and Plan: Sascha intubated and sedated. Wean pressors as BP toerlates. CXR clear this morning so may be able to extubate easily once he is more hemodynamically stable. Appreciate intensivst input. (3) Gastric ulcer: Code(s): K25.9 - Gastric ulcer, unspecified as acute or chronic, without hemorrhage or perforation Status: Acute Assessment and Plan: Sascha had known gastric ulcers prior to admission. Was being treated for Hpylori. Now POD #1 for gastrotomy for bleeding gastric ulcer at the cardia of the stomach and placement of gastrostomy tube. Minimal output from tubes. Continue routine post-op management. Appreciate Gen surg input. (4) C2 cervical fracture: Onset Date: Unknown Code(s): S12.100A - Unspecified displaced fracture of second cervical vertebra, initial encounter for closed fracture Status: Acute Assessment and Plan: Patient with recent hx of odontoid fracture and currently in C-collar. Continue the same. (5) Elevated troponin: Code(s): R79.89 - Other specified abnormal findings of blood chemistry Status: Acute Assessment and Plan: Trop to 0.717. EKG (02/05) showing delayed transition without much change on repeat EKG (02/06). Echo showing normal LV systolic function with EF 55-60% and no wall motion abnormalities. DD grade 1 noted. [place] to have Type II [place] related to HoTN and acute blood loss. Cardiology following. (6) Syncope: Code(s): R55 - Syncope and collapse Status: Chronic Assessment and Plan: Related to acute GI bleed and hemorrhagic shock. (7) GI bleed: Onset Date: ~12/2019 Code(s): K92.2 - Gastrointestinal hemorrhage, unspecified Status: Acute Assessment and Plan: Related to gastric ulcer. (8) Anemia: Onset Date: ~01/2020 Qualifiers: Other causes of anemia: acute posthemorrhagic Code(s): D64.9 - Anemia, unspecified Status: Acute Assessment and Plan: Patient with acute blood loss anemia. As above. [facility] HH closely. Transfuse as needed. (9) CAD (coronary artery disease): Code(s): I25.10 - Atherosclerotic heart disease of [place] coronary artery without angina pectoris Status: Chronic Assessment and Plan: Noted. ASA on hold. (10) H. pylori infection: Code(s): A04.8 - Other specified bacterial intestinal infections Status: Acute Assessment and Plan: Patient diagnosed with Hpylori at the outside hospital. Currently on broad spectrum abx. Oral abx on hold. (11) Hypertension: Code(s): I10 - Essential (primary) hypertension Status: Chronic Assessment and Plan: As above. Lisinopril and hydrochlorothiazide on hold. (12) Chronic renal failure, stage 3 (moderate): Code(s): N18.3 - Chronic kidney disease, stage 3 (moderate) Status: Chronic Assessment and Plan: Cr 1.7 on admission and up to 2.1 but back to 1.8 now. Cr in December was 2.0 so felt patient is at his baseline. Continue to monitor. (13) DVT prophylaxis: Code(s): Z29.9 - Encounter for graciela
[2020-02-08] MEDS: NOREPINEPHRINE 8 MG/D5W 250 ML 8 MG/250 ML BAG 13.1 MG IV CONT (10:21)
--- NOTE | 2020-02-08 10:38 | WPDGIPROGNO ---
Progress Note: A&P Additional Plan Patient now on the ventilator. Status post gastric surgery for bleeding gastric ulcer yesterday. Large clot identified in the gastric body. Physical exam reveals patient be on the ventilator. Lungs with few rhonchi prior it. Abdomen is soft. Incision noted in mid abdomen. Bowel sounds absent at this time. G-tube now in place. Labs reveal hemoglobin 10.3 this morning. Much more stable. Status post about 11units of blood yesterday. Impression 1. Gastric ulcer. Status post massive GI blood loss. Status post surgery for over-sewing of ulcer yesterday. G-tube placed. Plan is to continue NG tube monitoring. Follow hemoglobin. Hopefully taper off pressors. 2. Respiratory failure. Patient now on ventilator. 3. Leukocytosis. Could be stress response rule out aspiration. monitor. 4. Hemorrhagic shock. Plan to continue supportive care. Patient remains on Protonix. Will follow with you. Subjective Date/time seen: 02/08/20 10:38 Objective Data Vital Signs Vital Signs: Vital Signs - 24 hr 02/07/20 10:42 02/07/20 11:40 02/07/20 12:00 Temperature 36.7 C 36.6 C Pulse Rate 122 H 102 H 101 H Respiratory Rate 15 20 Blood Pressure 78/54 L 86/72 L Pulse Oximetry 100 98 100 02/07/20 12:05 02/07/20 13:54 02/07/20 14:00 Temperature 36.4 C 35.8 C L 35.6 C L Pulse Rate 102 H 108 H 110 H Respiratory Rate 20 19 14 Blood Pressure 84/49 L 83/45 L 118/64 Pulse Oximetry 98 100 02/07/20 14:02 02/07/20 14:19 02/07/20 14:46 Temperature 35.7 C L 35.5 C L Pulse Rate 107 H 104 H 109 H Respiratory Rate 24 H 14 Blood Pressure 131/49 L 124/66 Pulse Oximetry 98 100 100 02/07/20 17:55 02/07/20 18:00 02/07/20 19:03 Temperature 36.8 C Pulse Rate 98 101 H 101 H Respiratory Rate 20 20 Blood Pressure 141/85 H Pulse Oximetry 100 100 100 02/07/20 19:51 02/07/20 20:00 02/07/20 21:52 Temperature 37.7 C H 37.7 C H Pulse Rate 107 H 108 H Respiratory Rate 18 Blood Pressure 118/80 Pulse Oximetry 100 100 02/07/20 22:00 02/07/20 22:30 02/07/20 23:40 Temperature 37.7 C H 37.7 C H Pulse Rate 108 H 103 H Respiratory Rate 20 Blood Pressure 111/76 Pulse Oximetry 99 100 02/08/20 00:00 02/08/20 02:00 02/08/20 02:23 Temperature 36.9 C Pulse Rate 104 H 101 H 101 H Respiratory Rate 20 20 Blood Pressure 114/75 100/74 Pulse Oximetry 100 99 100 02/08/20 04:00 02/08/20 04:23 02/08/20 06:00 Temperature 37.7 C H 37.7 C H Pulse Rate 98 98 101 H Respiratory Rate 20 20 Blood Pressure 99/72 L 88/61 L Pulse Oximetry 99 100 99 02/08/20 07:56 02/08/20 08:00 02/08/20 09:55 Temperature 37.7 C H 37.7 C H Pulse Rate 97 93 93 Respiratory Rate 16 16 Blood Pressure 93/63 L 89/60 L Pulse Oximetry 99 100 100 02/08/20 10:00 02/08/20 10:11 Temperature 37.6 C H Pulse Rate 97 93 Respiratory Rate 20 20 Blood Pressure 93/62 L 106/66 Pulse Oximetry 100 100 Intake/Output Intake/Output: Intake & Output 02/05/20 02/06/20 02/07/20 02/08/20 23:59 23:59 23:59 23:59 Intake Total 5820 9866 1950 Output Total 2750 3050 1250 Balance 3070 6821 700 Meds/Results Medications: Active Medications Generic Name Dose Route Start Last Admin Trade Name Freq PRN Reason Stop Dose Admin Pantoprazole Sodium 80 mg/ 500 mls @ 50 mls/hr 02/06/20 19:00 02/08/20 04:31 Dextrose IV CONT 50 mls/hr .Q10H MARY Administration Norepinephrine Bitartrate 8 mg in 250 mls @ 13.125 mls/hr 02/06/20 20:25 02/08/20 10:22 Levophed 8 Mg/D5w 250 Ml IV CONT 9 mcg/min .[id number] MARY 16.9 mls/hr Titration Protocol 7 MCG/MIN Midazolam HCl 50 mg in 100 mls @ 6 mls/hr 02/06/20 22:55 02/08/20 01:32 Versed 50 Mg/D5w 100 Ml IV CONT 3 mg/hr .[id number] MARY 6 mls/hr Administration Protocol 3 MG/HR Fentanyl Citrate 2,500 mcg in 250 mls @ 7.5 mls/hr 02/06/20 22:55 02/08/20 03:07 Fentanyl 2,500 Mcg/Ns 250 Ml IV CONT Not Given
--- NOTE | 2020-02-08 10:45 | PCDIET ---
ICU Rounding Note: Patient is NPO POD #1 s/p gastric ulcer repair and gastrostomy tube placement. Remains intubated. MD ordering elemental tube feedings at 10mL/hr. Last recorded weight is 76.9kg which is stable. Bowel Motility: BM x 2 on 02/07/20. Labs Reviewed: Hgb (10.3), Hct (28.6), Mouna Ca (7.8), Glu (199), BUN (40), Cr (1.8), Na (129), Alb (2.0) Meds Noted: LR at 75mL/hr, Levophed, Versed, Protonix, Vancomycin, Morphine, Zosyn, Vasopressin, s/p Calcium Gluconate Additional Notes: s/p 11 units RBC this admission. Abdomen with surgical site/g-tube but no pressure sores. Agree with trickle feedings since GI bleeding resolved. Following daily in ICU rounds. Assessing/reassessing every Thursday/Thursday.
[2020-02-08 11:04] LABS: Reflex Lactic Acid Yes or No Add Lactic
[2020-02-08 12:34] LABS: Lactic Acid 1.9 mmol/L (0.7-2.1)
[2020-02-08 14:45] LABS: Hemoglobin 9.1 g/dL (14.0-18.0)
--- NOTE | 2020-02-08 17:29 | PM.PNGS ---
Progress Note: A&P Assessment and Plan (1) GI bleed: Onset Date: ~12/2019 Code(s): K92.2 - Gastrointestinal hemorrhage, unspecified Status: Acute Assessment and Plan: This was the main reason for my involvement. Patient underwent a laparotomy, gastrotomy and over-sewing of a ulcer that was bleeding in the cardia of the stomach. Gastrostomy tube was placed and he seems to be improved in somewhat stabilized today. Will begin tube feedings and also begin an acids to ooze counter acne acid in the stomach to try to prevent further bleeding. Will plan to take the NG tube out if residuals checks after several hours of tube feeding or okay. (2) H. pylori infection: Code(s): A04.8 - Other specified bacterial intestinal infections Status: Acute Assessment and Plan: Apparently positive H pylori test at [facility] 2 weeks ago patient got 1 week of oral outpatient treatment will try to finish another week after he is more stable. Currently receiving vancomycin and Zosyn as antibiotic coverage. (3) Acute respiratory failure: Onset Date: ~02/07/20 Qualifiers: Respiratory failure complication: unspecified whether with hypoxia or hypercapnia Qualified Code(s): J96.00 - Acute respiratory failure, unspecified whether with hypoxia or hypercapnia Code(s): J96.00 - Acute respiratory failure, unspecified whether with hypoxia or hypercapnia Status: Acute Assessment and Plan: Improving, less acidosis on the ABG. Progressing toward ventilator weaning and extubation as per hospitalist/ commissions specialist. (4) Anemia: Onset Date: ~01/2020 Qualifiers: Other causes of anemia: acute posthemorrhagic Code(s): D64.9 - Anemia, unspecified Status: Acute Assessment and Plan: hemoglobin improved. Most recently 9.3. Watching serial H&Hs. (5) Elevated troponin: Code(s): R79.89 - Other specified abnormal findings of blood chemistry Status: Acute Assessment and Plan: Most likely was related to his hemorrhagic shock. Dr. Lilly guzman may repeat this again in the next few days. No obvious signs of heart damage at this time. (6) Gastric ulcer: Code(s): K25.9 - Gastric ulcer, unspecified as acute or chronic, without hemorrhage or perforation Status: Acute Assessment and Plan: Status post over sewing with silk suture. Continue Protonix drip and begin tube feedings. (7) C2 cervical fracture: Onset Date: Unknown Code(s): S12.100A - Unspecified displaced fracture of second cervical vertebra, initial encounter for closed fracture Status: Acute Subjective Subjective Date/Time Seen: 02/08/20 17:29 Post Op day: 1 ( Improved) Patient reports: bowel movement (2 -3) and blood in stool ( nurse reports 1 large maroon stool mid day today.) Interval history: patient has been gradually weaned off of pressors since his surgery. I discussed the situation with Dr. Lilly guzman this morning. The patient is not able to answer questions as he is intubated. Will begin start slowly tube feedings through his gastrostomy tube and check residuals through the NG tube. I will also give him Q 6 hour and acids. Continue the Protonix drip. Review of Systems Review of Systems: Narrative: Unable to give review of systems as patient intubated and sedated. Exam Const: General: cooperative, no acute distress and other ( Sedated on ventilator.) HENMT: Mouth: Yes moist mucous membranes Neck: Neck: normal visual inspection Chest: Chest palpation & inspection: normal inspection of the chest Resp: Effort & Inspection: normal respiratory effort Auscultation: clear to auscultation bilaterally Cardio: Jugular venous distension: no JVD Rate: regular rate Rhythm: regular rhythm GI: Inspection: normal to inspection GI Palp: Yes Soft to palpation Auscultation: normal bowel sounds Rectal Exam: deferre
[2020-02-08] MEDS: NOREPINEPHRINE 8 MG/D5W 250 ML 8 MG/250 ML BAG 11.3 MG IV CONT (18:12)
[2020-02-08] MEDS: MAG HYDROX/AL HYDROX/SIMETH 30 ML UDC FEED TUBE ×2 (18:13→23:58)
[2020-02-08 19:42] LABS: Hematocrit 25.4 % (42.0-52.0); Hemoglobin 8.5 g/dL (14.0-18.0)
[2020-02-09] VITALS (27 sets, daily range): BP systolic 82–136; BP diastolic 46–79; PULSE 65–92; RESP 11–20; TEMP 36.6–38.4; O2SAT 95–100
[2020-02-09 03:11] LABS: Hematocrit 22.9 % (42.0-52.0); Hemoglobin 7.7 g/dL (14.0-18.0); Mean Corpuscular HGB Conc 33.6 g/dl (32-36); Mean Corpuscular Hemoglobin 29.8 pg (26-34); Mean Corpuscular Volume 88.8 fl (80-100); Mean Platelet Volume 10.7 fl (7.4-10.4); Platelet Count Result 101 k/mm3 (150-375); Red Blood Count 2.58 M/mm3 (4.6-6.20); Red Cell Distribution Width 14.6 % (11.5-14.5); White Blood Count 18.6 K/mm3 (4.5-10.0)
[2020-02-09 03:17] LABS: INR 1.4; Partial Thromboplastin Time 28.4 SECONDS (22.3-36.8); Prothrombin Time 16.5 Seconds (11.1-14.7)
[2020-02-09 03:20] LABS: Alanine Aminotransferase 101 U/L (4-50); Albumin Level 1.8 g/dL (3.5-5.1); Alkaline Phosphatase 36 U/L (38-126); Aspartate Amino Transferase 146 U/L (17-59); Bilirubin,Total 0.2 mg/dL (0.2-1.3); Blood Urea Nitrogen 32 mg/dL (9-20); Calcium 6.5 mg/dL (8.4-10.2); Carbon Dioxide 31 mmol/L (22-30); Chloride 95 mmol/L (98-107); Estimated CRCL calculation 39 ml/min; Estimated Glomerular Filt Rate 42; Glucose 148 mg/dL (75-110); Magnesium 1.6 mg/dL (1.6-2.3); Potassium 3.7 mmol/L (3.4-5.0); Sodium 126 mmol/L (137-145)
[2020-02-09 03:56] LABS: Alveolar/Arterial O2 Gradient 158.4 mmHg; Arterial Blood Gas Ventilator rate 16 /MIN; Base Excess ABG 5.3 mEq/l (+/-2.0); Carboxyhemoglobin 0.2 % THb (0-2.0); Device VENTILATOR; Fractional Inspired Oxygen 40 %; HCO3 ABG 29.2 mEq/l (22.0-26.0); Methemoglobin ABG 0.4 %THb (0-1.5); Oxygen Content ABG 11.8 %vol (16.0-22.0); Oxygen Saturation ABG 96.6 % (95.0-100.0); Oxyhemoglobin 94.3 % THb (90.0-100.0); PCO2 ABG 40.1 mmHg (35.0-45.0); PO2 ABG 80.7 mmHg (80.0-100.0); PO2 FiO2 Ratio Arterial Blood 2.02 %; Reduced Hemoglobin 5.1 %THb (0-5.0); Site Drawn ARTLINE; Total Hemoglobin 8.8 g/dL (12.0-18.0)
[2020-02-09 03:57] LABS: Arterial Blood Gas PEEP 5 cmH2O; Arterial Blood Gas Tidal Volume 450 ml; Arterial Blood Gas Vent Mode CMV
[2020-02-09] MEDS: MAG HYDROX/AL HYDROX/SIMETH 30 ML UDC FEED TUBE ×4 (04:53→23:46)
[2020-02-09] MEDS: NOREPINEPHRINE 8 MG/D5W 250 ML 8 MG/250 ML BAG 5.6 MG IV CONT (05:19)
[2020-02-09 08:15] LABS: Hematocrit 26.1 % (42.0-52.0); Hemoglobin 8.9 g/dL (14.0-18.0)
--- NOTE | 2020-02-09 09:23 | PM.IMPN ---
Progress Note: A&P Assessment and Plan (1) Hemorrhagic shock: Onset Date: ~02/07/20 Code(s): R57.8 - Other shock Status: Resolved Assessment and Plan: Still remains on two pressors. BP remaining stable on pressors and able to wean. Hgb 11 but has trended down past 24 hrs. Lactic acid was up to 11 but down to 1.9 yesterday. pH normal. Continues to have excellent UOP. Continue to monitor. Appreciate intensivsit input. (2) Acute respiratory failure: Onset Date: ~02/07/20 Qualifiers: Respiratory failure complication: unspecified whether with hypoxia or hypercapnia Qualified Code(s): J96.00 - Acute respiratory failure, unspecified whether with hypoxia or hypercapnia Code(s): J96.00 - Acute respiratory failure, unspecified whether with hypoxia or hypercapnia Status: Acute Assessment and Plan: Patient intubated and sedated. Wean pressors as BP tolerates. CXR reviewed this morning showing probable atelectasis but can not exclude PNA. WBC continues to trend down. Continue broad spectrum abx. Appreciate intensivst input. (3) Gastric ulcer: Code(s): K25.9 - Gastric ulcer, unspecified as acute or chronic, without hemorrhage or perforation Status: Acute Assessment and Plan: Patient had known gastric ulcers prior to admission. Was being treated for Hpylori. Now POD #2 for gastrotomy for bleeding gastric ulcer at the cardia of the stomach and placement of G-tube. Continue routine post-op management. Continue Protonix drip. Appreciate Gen surg input. (4) C2 cervical fracture: Onset Date: Unknown Code(s): S12.100A - Unspecified displaced fracture of second cervical vertebra, initial encounter for closed fracture Status: Acute Assessment and Plan: Patient with recent hx of odontoid fracture and currently in C-collar. Continue the same. (5) Elevated troponin: Code(s): R79.89 - Other specified abnormal findings of blood chemistry Status: Acute Assessment and Plan: Trop to 0.717. EKG (02/05) showing delayed transition without much change on repeat EKG (02/06). Echo showing normal LV systolic function with EF 55-60% and no wall motion abnormalities. DD grade 1 noted. [place] to have Type II [place] related to HoTN and acute blood loss. Cardiology following. (6) Syncope: Code(s): R55 - Syncope and collapse Status: Chronic Assessment and Plan: Related to acute GI bleed and hemorrhagic shock. (7) GI bleed: Onset Date: ~12/2019 Code(s): K92.2 - Gastrointestinal hemorrhage, unspecified Status: Acute Assessment and Plan: Related to gastric ulcer. (8) Anemia: Onset Date: ~01/2020 Qualifiers: Other causes of anemia: acute posthemorrhagic Code(s): D64.9 - Anemia, unspecified Status: Acute Assessment and Plan: Patient with acute blood loss anemia. As above. Hgb dropping again to 7.7 requiring another transfusion. Monitor HH closely. Transfuse as needed. (9) CAD (coronary artery disease): Code(s): I25.10 - Atherosclerotic heart disease of [place] coronary artery without angina pectoris Status: Chronic Assessment and Plan: Noted. ASA on hold. (10) H. pylori infection: Code(s): A04.8 - Other specified bacterial intestinal infections Status: Acute Assessment and Plan: Patient diagnosed with Hpylori at the outside hospital. Currently on broad spectrum abx. Oral abx on hold. (11) Hypertension: Code(s): I10 - Essential (primary) hypertension Status: Chronic Assessment and Plan: As above. Lisinopril and hydrochlorothiazide on hold. (12) Chronic renal failure, stage 3 (moderate): Code(s): N18.3 - Chronic kidney disease, stage 3 (moderate) Status: Chronic Assessment and Plan: Cr 1.7 on admission and up to 2.1.
--- NOTE | 2020-02-09 10:40 | WPDGIPROGNO ---
Progress Note: A&P Additional Plan Patient remains intubated in the intensive care unit. NG tube was discontinued this morning. Patient's dose of pressor agents is markedly decreased. Passing melenic stool per rectum. Physical exam reveals patient to be on ventilator. Lungs with few rhonchi. Heart without murmur. Abdomen is soft. Incision noted. Patient now on G-tube feedings. Labs reveal a decline in hemoglobin to 7.7 this morning. Improved to 8.9 after transfusion. Impression 1. Gastric ulcer. Status post massive GI bleeding and surgical therapy. Continue PPI therapy. 2. Anemia. Since strongly suspicious for additional GI blood loss. Nursing staff notes no blood in recent NG tube lavage. NG tube now removed. We may need to lavage via gastric tube replaced G-tube if hemoglobin remains low. Plan to transfuse to a stable hematocrit. Consider follow-up EGD if hemoglobin continues to decline. This will be high risk given recent surgical therapy. 3. Respiratory failure. Patient remains intubated. Subjective Date/time seen: 02/09/20 10:40 Objective Data Vital Signs Vital Signs: Vital Signs - 24 hr 02/08/20 11:00 02/08/20 11:24 02/08/20 12:00 Temperature 37.6 C H 37.5 C Pulse Rate 88 92 95 Respiratory Rate 20 24 H Blood Pressure 89/59 L 105/73 Pulse Oximetry 100 100 100 02/08/20 12:23 02/08/20 14:00 02/08/20 14:05 Temperature 37.5 C Pulse Rate 95 88 82 Respiratory Rate 24 H 18 Blood Pressure 93/61 L 124/77 Pulse Oximetry 100 100 100 02/08/20 16:00 02/08/20 17:05 02/08/20 18:00 Temperature 37.4 C Pulse Rate 82 89 91 Respiratory Rate 20 20 Blood Pressure 82/54 L 93/60 L Pulse Oximetry 100 100 99 02/08/20 19:03 02/08/20 20:00 02/08/20 22:00 Temperature 37.7 C H 37.7 C H Pulse Rate 86 88 80 Respiratory Rate 20 20 Blood Pressure 99/62 L 96/64 L Pulse Oximetry 100 99 100 02/08/20 22:34 02/09/20 00:00 02/09/20 01:37 Temperature 37.3 C Pulse Rate 79 82 80 Respiratory Rate 20 Blood Pressure 97/61 L Pulse Oximetry 100 100 99 02/09/20 02:00 02/09/20 03:57 02/09/20 04:00 Temperature 37.3 C 37.3 C Pulse Rate 82 78 88 Respiratory Rate 20 20 Blood Pressure 99/62 L 90/58 L Pulse Oximetry 100 100 100 02/09/20 04:16 02/09/20 05:16 02/09/20 06:00 Temperature 37.4 C 37.3 C Pulse Rate 85 86 78 Respiratory Rate 16 18 18 Blood Pressure 92/59 L 136/79 85/55 L Pulse Oximetry 100 96 96 02/09/20 06:16 02/09/20 06:45 02/09/20 08:00 Temperature 37.2 C 37.2 C 37.4 C Pulse Rate 76 86 79 Respiratory Rate 18 17 16 Blood Pressure 96/64 L 96/46 L 86/56 L Pulse Oximetry 97 95 100 02/09/20 09:15 02/09/20 10:00 Temperature Pulse Rate 79 81 Respiratory Rate 14 Blood Pressure 87/55 L Pulse Oximetry 98 100 Intake/Output Intake/Output: Intake & Output 02/06/20 02/07/20 02/08/20 02/09/20 23:59 23:59 23:59 23:59 Intake Total 5820 9866 4140 1910 Output Total 2750 3050 2200 1200 Balance 3070 6816 1940 710 Meds/Results Medications: Active Medications Generic Name Dose Route Start Last Admin Trade Name Freq PRN Reason Stop Dose Admin Al Hydrox/Mg Hydrox/Simethicone 30 ml 02/08/20 12:55 02/09/20 04:53 Mylanta FEED TUBE 30 ml Q6H MARY Administration Pantoprazole Sodium 80 mg/ 500 mls @ 50 mls/hr 02/06/20 19:00 02/09/20 08:44 Dextrose IV CONT 50 mls/hr .Q10H MARY Administration Norepinephrine Bitartrate 8 mg in 250 mls @ 5.625 mls/hr 02/06/20 20:25 02/09/20 05:19 Levophed 8 Mg/D5w 250 Ml IV CONT 3 mcg/min .[id number] MARY 5.6 mls/hr Administration Protocol 3 MCG/MIN Midazolam HCl 50 mg in 100 mls @ 2 mls/hr 02/06/20 22:55 02/09/20 10:00 Versed 50 Mg/D5w 100 Ml IV CONT 1 mg/hr .Q50H MARY 2 mls/hr Titration Protocol 1 MG/HR Fentanyl Citrate 2,500 mcg in 250 mls @ 2.5 mls/hr 02/06/20 22:55 02/09/20 09:01 Fentanyl 2,500 Mcg/Ns 250 Ml IV CONT 25 mcg/hr .Q72H MARY 2.5 mls/hr
--- NOTE | 2020-02-09 11:05 | PCDIET ---
ICU Rounding Note: Patient remains intubated. Receiving Vital 1.2 at 10mL/hr via g-tube without reported issues. NG tube has been removed. Last recorded weight is 76.9kg which is stable. Bowel Motility: Continuous stools, per RN, with rectal tube in place. Labs Reviewed: Hgb (7.7), Hct (22.9), BUN (32), Cr (1.7), Na (126), Alb (1.8), PO4 (2.0), Mouna Ca (8.26) Meds Noted: Fentanyl, LR at 50mL/hr, Pantoprazole, Zosyn, Versed, Levophed, NS at 30mL/hr, Vasopressin, Vancomycin Additional Notes: Abdomen with surgical site; no reported pressure ulcers. Following daily in ICU rounds. Assessing/reassessing every Thursday/Thursday.
--- NOTE | 2020-02-09 11:12 | PM.PNCARD ---
Progress Note: A&P Assessment and Plan (1) Volume overload: Code(s): E87.70 - Fluid overload, unspecified Status: Acute Assessment and Plan: Multiple L positive over the past couple of days. Will give him a low-dose Lasix challenge of 20 mg IV x1 (2) Elevated troponin: Code(s): R79.89 - Other specified abnormal findings of blood chemistry Status: Acute Assessment and Plan: Likely type 2 related (3) Hemorrhagic shock: Onset Date: ~02/07/20 Code(s): R57.8 - Other shock Status: Resolved Assessment and Plan: More stable. Continue to wean pressors. (4) CAD (coronary artery disease): Code(s): I25.10 - Atherosclerotic heart disease of [place] coronary artery without angina pectoris Status: Chronic Subjective Date/time seen: 02/09/20 11:12 Interval history: 59yo male here for hemorrhagic shock and respiratory failure. Date of service 02/09/2020: He is still intubated and sedated bed more stable. Weaning pressors. Review of Systems Constitutional: Constitutional: Reports no additional constitutional complaints Eyes: Eyes: Reports no additional eye complaints ENT: Reports system reviewed and no additional complaints, except as documented Cardiovascular: Cardiovascular: Reports as per HPI and Reports lightheadedness Respiratory: Respiratory: Reports no additional respiratory complaints Genitourinary: Genitourinary: Reports no additional male genitourinary complaints Musculoskeletal: Musculoskeletal: Reports no additional musculoskeletal complaints Integumentary/Breasts: Skin/Breast: Reports system reviewed and no additional complaints, except as docu Neurologic: Reports as per HPI Hematologic/Lymphatic: Hematologic/Lymphatic: Reports no additional hematologic/lymphatic complaints Allergic/Immunologic: Allergic/Immunologic: Reports no additional allergic/immunologic complaints Exam Const: General: comfortable and no acute distress HENMT: Mouth: Yes dry mucous membranes Eyes: Sclera: sclerae normal Pupils: Equal, round and reactive pupils present Neck: Neck: no JVD Other: Exam very difficult with the patient's C-collar in place Resp: Other: Inspiratory wheezes noted Cardio: Rate: regular rate Rhythm: regular rhythm Other: PMI nondisplaced no murmur no gallop GI: Auscultation: normal bowel sounds Skin: General skin exam: normal color Neuro: Cranial nerves: Yes Equal, round and reactive pupils present Cognition (Neuro): normal cognition Extrem: Right upper extremity: edema Left upper extremity: edema Right lower extremity: edema Left lower extremity: edema Objective Data Vital Signs Vital Signs: Vital Signs - 24 hr 02/08/20 11:24 02/08/20 12:00 02/08/20 12:23 Temperature 37.5 C 37.5 C Pulse Rate 92 95 95 Respiratory Rate 24 H 24 H Blood Pressure 105/73 93/61 L Pulse Oximetry 100 100 100 02/08/20 14:00 02/08/20 14:05 02/08/20 16:00 Temperature 37.4 C Pulse Rate 88 82 82 Respiratory Rate 18 20 Blood Pressure 124/77 82/54 L Pulse Oximetry 100 100 100 02/08/20 17:05 02/08/20 18:00 02/08/20 19:03 Temperature Pulse Rate 89 91 86 Respiratory Rate 20 Blood Pressure 93/60 L Pulse Oximetry 100 99 100 02/08/20 20:00 02/08/20 22:00 02/08/20 22:34 Temperature 37.7 C H 37.7 C H Pulse Rate 88 80 79 Respiratory Rate 20 20 Blood Pressure 99/62 L 96/64 L Pulse Oximetry 99 100 100 02/09/20 00:00 02/09/20 01:37 02/09/20 02:00 Temperature 37.3 C 37.3 C Pulse Rate 82 80 82 Respiratory Rate 20 20 Blood Pressure 97/61 L 99/62 L Pulse Oximetry 100 99 100 02/09/20 03:57 02/09/20 04:00 02/09/20 04:16 Temperature 37.3 C 37.4 C Pulse Rate 78 88 85 Respiratory Rate 20 16 Blood Pressure 90/58 L 92/59 L Pulse Oximetry 100 100 100 02/09/20 05:16 02/09/20 06:00 02/09/20 06:16 Temperature 37.3 C 37.2 C Pulse Rate 86 78 76 Respiratory Rate 18 18 18 Blood Pressure 136/79
[2020-02-09] MEDS: FUROSEMIDE INJ 40 MG/4 ML VIAL 20 MG IV PUSH (12:11)
[2020-02-09] MEDS: LACTATED RINGERS 1,000 ML 75 ML IV CONT ×2 (12:11→23:47)
--- NOTE | 2020-02-09 12:24 | WPDINTPN ---
Progress Note: A&P Assessment and Plan (1) Acute respiratory failure: Onset Date: ~02/07/20 Qualifiers: Respiratory failure complication: unspecified whether with hypoxia or hypercapnia Qualified Code(s): J96.00 - Acute respiratory failure, unspecified whether with hypoxia or hypercapnia Code(s): J96.00 - Acute respiratory failure, unspecified whether with hypoxia or hypercapnia Status: Acute Assessment and Plan: Patient was in hemorrhagic shock, unresponsive with apnea, patient was intubated on 02/06/2020 -currently on CMV mode of ventilation, 30% FiO2, 5 of PEEP. -ABGs and chest x-ray reviewed, ventilator adjusted, respiratory rate decreased -most likely respiratory failure related to metabolic acidosis, hemorrhagic shock -on fentanyl Versed infusion for sedation, maintain RASS of 0 to -2, daily sedation vacation (2) Hemorrhagic shock: Onset Date: ~02/07/20 Code(s): R57.8 - Other shock Status: Resolved Assessment and Plan: GI bleed with hematemesis, anemia, requiring multiple units of packed RBCs -EGD was done just after midnight on 02/07/2020, which showed large amount of blood clot in the stomach, per gastritis, no intervention could be performed as there was too much blood in the stomach. -continue Protonix infusion, H&H q.6 hours -02/07/2020: Status post gastrotomy with over stage for bleeding gastric ulcer at the cardia of the stomach and application of anticoagulant, placement of gastrostomy tube -patient is on Levophed and vasopressin. Epinephrine and Abdoul-Synephrine were discontinued. Will maintain mean arterial pressures > 65 mmHg -continue vancomycin and Zosyn. WBC count trending down -hemoglobin dropped this morning, requiring 1 unit of packed RBCs with appropriate increase in hemoglobin, GI and surgery aware of at it. -patient may require EGD, will discuss with GI and surgery (3) GI bleed: Onset Date: ~12/2019 Code(s): K92.2 - Gastrointestinal hemorrhage, unspecified Status: Acute Assessment and Plan: Patient with recent GI bleed at [facility] where an EGD was done and showed 3 bleeding gastric ulcers which were cauterized at the end of December 2019. -GI following patient closely, - 02/07/2020: Status post gastrotomy with over stage for bleeding gastric ulcer at the cardia of the stomach and application of anticoagulant, placement of gastrostomy tube -received multiple units of packed RBCs, FFP, cryoprecipitate and platelets. -H&H q.6 hours -platelet counts improve despite (4) Elevated troponin: Code(s): R79.89 - Other specified abnormal findings of blood chemistry Status: Acute Assessment and Plan: Patient with elevated troponin, possible NSTEMI from severe hemorrhagic shock/anemia given history of coronary artery disease. This could also be type 2 infarct secondary to hypotension and shock -cardiology is already following the patient, -echocardiogram 02/07/2020: LV systolic function is normal EF 55-60%. Grade 1 diastolic dysfunction, right ventricular systolic function is reduced -EKG showed borderline ST abnormalities and high lateral leads (5) Acute kidney injury: Code(s): N17.9 - Acute kidney failure, unspecified Status: Acute Assessment and Plan: Stage 3 chronic kidney disease, CREATININE IMPROVING -urine output has been adequate, -patient has received multiple units of blood products -continue maintenance IV fluids - continue to monitor renal function, electrolytes and urine output -lactic acid 1.9 ( 11.4 on 02/07/2020) -patient on pressors, will maintain mean arterial pressures > 65 mmHg (6) DVT prophylaxis: Code(s): Z29.9 - Encounter for prophylactic measures, unspecified Status: Acute Assessment and Plan: SCDs, no chemoprophylaxis given GI hemorrhage and hemorrhagic shock (7) Anemia: Onset Date: ~01/2020 Qualifiers: Other causes of
[2020-02-09 14:47] LABS: Hematocrit 26.6 % (42.0-52.0)
--- NOTE | 2020-02-09 16:14 | PM.PNGS ---
Progress Note: A&P Assessment and Plan (1) GI bleed: Onset Date: ~12/2019 Code(s): K92.2 - Gastrointestinal hemorrhage, unspecified Status: Acute Assessment and Plan: This was the main reason for my involvement. Patient underwent a laparotomy, gastrotomy and over-sewing of a ulcer that was bleeding in the cardia of the stomach. Gastrostomy tube was placed and he seems to be Doing okay however he has had several melanotic stools today overnight and his hemoglobin dropped to 7.7. He will receive transfusion of 1 unit of blood today. Will begin tube feedings and also antacids(Mylanta)to counter acid in the stomach to try to prevent further bleeding. Because of possibility of a slight or small read bleed I have talked with Dr. velasquez her and he is willing to consider upper GI endoscopy tomorrow morning to recheck lying the stomach before the weekend. We will stop the tube feedings at midnight and placed the G-tube to gravity drainage. (2) H. pylori infection: Code(s): A04.8 - Other specified bacterial intestinal infections Status: Acute Assessment and Plan: Apparently positive H pylori test at [facility] 2 weeks ago patient got 1 week of oral outpatient treatment will try to finish another week after he is more stable. Currently receiving vancomycin and Zosyn as antibiotic coverage. (3) Acute respiratory failure: Onset Date: ~02/07/20 Qualifiers: Respiratory failure complication: unspecified whether with hypoxia or hypercapnia Qualified Code(s): J96.00 - Acute respiratory failure, unspecified whether with hypoxia or hypercapnia Code(s): J96.00 - Acute respiratory failure, unspecified whether with hypoxia or hypercapnia Status: Acute Assessment and Plan: Improving, less acidosis on the ABG. Progressing toward ventilator weaning and extubation as per hospitalist/ registered nurse surgical services. (4) Anemia: Onset Date: ~01/2020 Qualifiers: Other causes of anemia: acute posthemorrhagic Code(s): D64.9 - Anemia, unspecified Status: Acute Assessment and Plan: hemoglobin improved. Most recently 9.3. Watching serial H&Hs. (5) Elevated troponin: Code(s): R79.89 - Other specified abnormal findings of blood chemistry Status: Acute Assessment and Plan: Most likely was related to his hemorrhagic shock. Dr. mildly may repeat this again in the next few days. No obvious signs of heart damage at this time. (6) Gastric ulcer: Code(s): K25.9 - Gastric ulcer, unspecified as acute or chronic, without hemorrhage or perforation Status: Acute Assessment and Plan: Status post over sewing with silk suture. Continue Protonix drip and begin tube feedings. (7) C2 cervical fracture: Onset Date: Unknown Code(s): S12.100A - Unspecified displaced fracture of second cervical vertebra, initial encounter for closed fracture Status: Acute Subjective Subjective Date/Time Seen: 02/09/20 16:14 Post Op day: 2 Patient reports: bowel movement Interval history: patient is still intubated and doing okay. Pressors are low dose at this time. Levophed at 2 mics and vasopressin at 0.25 mics. Review of Systems Constitutional: Constitutional: Reports as per HPI and Denies headache(s) Eyes: Eyes: Denies loss of vision and Denies eye pain ENT: Reports Normal hearing present, Denies change in voice, Denies dizziness and Denies headache(s) Cardiovascular: Cardiovascular: Denies chest pain and Denies dyspnea Respiratory: Respiratory: Denies dyspnea and Denies wheezing Gastrointestinal: Gastrointestinal: Reports abdominal pain Musculoskeletal: Musculoskeletal: Denies back pain and Denies arthralgias Neurologic: Reports Normal hearing present, Denies dizziness, Denies headache(s), Denies loss of vision and Denies memory loss Psychiatric: Psychiatric: Denies memory loss and Denies
[2020-02-09 20:27] LABS: Hematocrit 25.4 % (42.0-52.0); Hemoglobin 8.6 g/dL (14.0-18.0)
[2020-02-10] VITALS (26 sets, daily range): BP systolic 85–127; BP diastolic 54–80; PULSE 58–100; RESP 9–25; TEMP 36.6–38.5; O2SAT 95–100
[2020-02-10 02:09] LABS: Hematocrit 24.9 % (42.0-52.0); Hemoglobin 8.3 g/dL (14.0-18.0); Mean Corpuscular HGB Conc 33.3 g/dl (32-36); Mean Corpuscular Hemoglobin 29.5 pg (26-34); Mean Corpuscular Volume 88.6 fl (80-100); Mean Platelet Volume 10.4 fl (7.4-10.4); Platelet Count Result 106 k/mm3 (150-375); Red Blood Count 2.81 M/mm3 (4.6-6.20); Red Cell Distribution Width 14.3 % (11.5-14.5); White Blood Count 16.2 K/mm3 (4.5-10.0)
[2020-02-10 02:18] LABS: INR 1.3; Prothrombin Time 15.5 Seconds (11.1-14.7)
[2020-02-10 02:19] LABS: Partial Thromboplastin Time 29.7 SECONDS (22.3-36.8)
[2020-02-10 02:20] LABS: Alanine Aminotransferase 259 U/L (4-50); Alkaline Phosphatase 43 U/L (38-126); Aspartate Amino Transferase 280 U/L (17-59); Bilirubin,Total 0.2 mg/dL (0.2-1.3); Blood Urea Nitrogen 27 mg/dL (9-20); Calcium 6.6 mg/dL (8.4-10.2); Carbon Dioxide 31 mmol/L (22-30); Chloride 93 mmol/L (98-107); Estimated CRCL calculation 44 ml/min; Estimated Glomerular Filt Rate 48; Glucose 128 mg/dL (75-110); Magnesium 1.6 mg/dL (1.6-2.3); Phosphorus 1.5 mg/dL (2.5-4.5); Potassium 3.1 mmol/L (3.4-5.0); Sodium 124 mmol/L (137-145)
[2020-02-10 02:53] LABS: Vancomycin Trough 8.9 ug/mL (10.0-20.0)
[2020-02-10 04:12] LABS: Alveolar/Arterial O2 Gradient 88.7 mmHg; Base Excess ABG 5.1 mEq/l (+/-2.0); Carboxyhemoglobin 0.3 % THb (0-2.0); Fractional Inspired Oxygen 30 %; HCO3 ABG 29.4 mEq/l (22.0-26.0); Methemoglobin ABG 0.2 %THb (0-1.5); Oxygen Content ABG 13.1 %vol (16.0-22.0); Oxygen Saturation ABG 95.8 % (95.0-100.0); Oxyhemoglobin 94.1 % THb (90.0-100.0); PCO2 ABG 42.1 mmHg (35.0-45.0); PO2 ABG 75.7 mmHg (80.0-100.0); PO2 FiO2 Ratio Arterial Blood 2.52 %; Reduced Hemoglobin 5.4 %THb (0-5.0); Site Drawn ARTLINE; Total Hemoglobin 9.8 g/dL (12.0-18.0); pH ABG 7.462 (7.350-7.450)
[2020-02-10 04:13] LABS: Arterial Blood Gas PEEP 5 cmH2O; Arterial Blood Gas Tidal Volume 450 ml; Arterial Blood Gas Vent Mode CMV; Arterial Blood Gas Ventilator rate 14 /MIN; Device VENTILATOR
--- NOTE | 2020-02-10 06:45 | PHAR ---
Pharmacy approved home med: USE FROM HOME INCRUSE ELLIPTA 62.5 mcg Inhale 1 puff daily
[2020-02-10] MEDS: MAGNESIUM SULF 2 GM/WATER 50ML 2 GM/50 ML BAG IVPB (08:55)
[2020-02-10] MEDS: CALCIUM GLUC 2,000 MG/NS 100ML 2,000 MG/100 ML BAG 100 MG IVPB (08:55)
[2020-02-10] MEDS: POTASSIUM PHOS,M-BASIC-D-BASIC 20 MMOL in SODIUM CHLORIDE 0.9% IV 250 ML 62.5 MMOL IVPB (10:00)
--- NOTE | 2020-02-10 10:26 | PM.PNCARD ---
Progress Note: A&P Assessment and Plan (1) Volume overload: Code(s): E87.70 - Fluid overload, unspecified Status: Acute Assessment and Plan: Multiple L positive over the past couple of days. Additional dose of furosemide 20 mg IV x1. Replace potassium and magnesium (2) Elevated troponin: Code(s): R79.89 - Other specified abnormal findings of blood chemistry Status: Acute Assessment and Plan: Likely type 2 related (3) Hemorrhagic shock: Onset Date: ~02/07/20 Code(s): R57.8 - Other shock Status: Resolved Assessment and Plan: More stable. Continue to wean pressors. (4) CAD (coronary artery disease): Code(s): I25.10 - Atherosclerotic heart disease of [place] coronary artery without angina pectoris Status: Chronic Subjective Date/time seen: 02/10/20 10:26 Interval history: 59yo male here for hemorrhagic shock and respiratory failure. Date of service 02/10/2020: He is still intubated and sedated bed more stable. Weaning pressors. No arrhythmia Review of Systems Constitutional: Constitutional: Reports no additional constitutional complaints Eyes: Eyes: Reports no additional eye complaints ENT: Reports system reviewed and no additional complaints, except as documented Cardiovascular: Cardiovascular: Reports as per HPI and Reports lightheadedness Respiratory: Respiratory: Reports no additional respiratory complaints Genitourinary: Genitourinary: Reports no additional male genitourinary complaints Musculoskeletal: Musculoskeletal: Reports no additional musculoskeletal complaints Integumentary/Breasts: Skin/Breast: Reports system reviewed and no additional complaints, except as docu Neurologic: Reports as per HPI Hematologic/Lymphatic: Hematologic/Lymphatic: Reports no additional hematologic/lymphatic complaints Allergic/Immunologic: Allergic/Immunologic: Reports no additional allergic/immunologic complaints Exam Const: General: comfortable and no acute distress Eyes: Sclera: sclerae normal Neck: Neck: no JVD Other: Exam very difficult with the patient's C-collar in place Resp: Effort & Inspection: normal respiratory effort Auscultation: clear to auscultation bilaterally Other: Inspiratory wheezes noted Cardio: Rate: regular rate Rhythm: regular rhythm Other: PMI nondisplaced no murmur no gallop GI: Auscultation: normal bowel sounds Skin: General skin exam: normal color Extrem: General: normal to inspection Right upper extremity: edema Left upper extremity: edema Right lower extremity: edema Left lower extremity: edema Objective Data Vital Signs Vital Signs: Vital Signs - 24 hr 02/09/20 11:06 02/09/20 11:30 02/09/20 12:00 Temperature 36.6 C 37.8 C H Pulse Rate 83 65 85 Respiratory Rate 15 13 Blood Pressure 86/56 L 85/55 L Pulse Oximetry 100 100 99 02/09/20 14:00 02/09/20 14:25 02/09/20 16:00 Temperature 37.7 C H 37.9 C H Pulse Rate 87 68 87 Respiratory Rate 18 11 L Blood Pressure 89/58 L 82/51 L Pulse Oximetry 100 100 96 02/09/20 17:10 02/09/20 18:00 02/09/20 19:11 Temperature 38.2 C H Pulse Rate 85 89 87 Respiratory Rate 14 Blood Pressure 87/54 L Pulse Oximetry 97 100 100 02/09/20 20:00 02/09/20 21:38 02/09/20 22:00 Temperature 38.1 C H 38.4 C H 38.2 C H Pulse Rate 92 79 Respiratory Rate 16 14 Blood Pressure 114/67 92/55 L Pulse Oximetry 98 96 02/09/20 22:08 02/09/20 22:41 02/10/20 00:00 Temperature 38.1 C H 37.2 C Pulse Rate 67 76 Respiratory Rate 14 Blood Pressure 120/78 Pulse Oximetry 95 97 02/10/20 01:47 02/10/20 02:00 02/10/20 03:52 Temperature 37.1 C Pulse Rate 76 77 62 Respiratory Rate 14 Blood Pressure 91/56 L Pulse Oximetry 95 96 98 02/10/20 04:00 02/10/20 06:00 02/10/20 08:00 Temperature 36.6 C 36.8 C Pulse Rate 68 58 L 66 Respiratory Rate 18 14 9 L Blood Pressure 102/60 99/69 L 114/72 Pulse Oximetry 98 97 96
[2020-02-10] MEDS: FUROSEMIDE INJ 40 MG/4 ML VIAL 20 MG IV PUSH (10:43)
--- NOTE | 2020-02-10 11:09 | PCDIET ---
Nutrition Follow-Up Complete: Nutrition Diagnosis: Inadequate oral/enteral intake related to GI bleed as evidenced by NPO status. Nutrition Goal: Patient to meet estimated nutritional needs. Goal in progress. Patient previously tolerating Vital 1.2 at 30mL/hr via PEG. Feedings currently on hold for EGD. If able to resume/advance tube feedings, recommend ultimate goal of 60mL/hr Vital 1.2. If unable to resume enteral feedings or if unable to increase rate, would begin to consider parenteral nutrition. Last recorded weight is 79.2 kg which is up from last review. +I/O. Bowel Motility: BM x 3 on 02/09/20. Labs Reviewed: Hgb (8.3), Hct (24.9), Glu (128), BUN (27), Cr (1.5), K (3.1), Alb (2.0), Na (124), Mouna Ca (8.2), Prealb (11) Meds Noted: Fentanyl, Levophed, Versed, Pantoprazole, Zosyn, KCl, K-Phos, Vancomycin, Vasopressin, Calcium Gluconate, Magnesium Sulfate Additional Notes: Abdomen with surgical site; no other skin issues, per RN. Will continue to monitor with same goal. Nutrition Monitoring and Evaluation: Follow up every Thursday/Thursday. Follow daily in ICU rounds.
[2020-02-10] MEDS: MIDAZOLAM HCL 2 MG/2 ML VIAL (11:57)
--- NOTE | 2020-02-10 12:05 | PM.OP ---
Procedure Note - Brief Procedure Note - Brief Date of procedure: 02/10/20 Pre-op diagnosis: syncope, renal insufficiency History of GI bleeding. History of gastric ulcers. Procedure performed: EGD. Description of procedure: Informed consent obtained from patient's family. Fujinon video endoscope passed through the esophagus which appears normal. Squamocolumnar junction intact at 40centimeters. Stomach is seen in its entirety reveals suture material at the gastric cardia some erythema no bleeding at this time some puckering of the mucosa after surgery. \ Patient has transverse suture line intact in the midbody of the stomach. Balloon from G-tube intact in appears to be healing appropriately. Significant erosions and erythema at the suture line. Two non bleeding gastric ulcers are noted in the antrum of the stomach. Flat clean base are identified at this time. No additional bleeding. Duodenum reveals normal bulb and sweep to 2nd portion. \no active bleeding noted during the procedure. Previous bleeding site identified in appears to be healing adequately at this point. Anesthesia: none Surgeon: Kaveh Alcantar MD Findings: Plan is for patient to have continued IV proton pump inhibitor. Protonix 40 mg p.o. b.i.d. this will be supplement with Carafate. Okay to resume tube feedings via G-tube. Continue monitor hemoglobin trial closely. Continue supportive care. Stool for H pylori antigen at a later date advised.
--- NOTE | 2020-02-10 12:20 | PM.PNGS ---
Progress Note: A&P Assessment and Plan (1) GI bleed: Onset Date: ~12/2019 Code(s): K92.2 - Gastrointestinal hemorrhage, unspecified Status: Acute Assessment and Plan: This was the main reason for my involvement. Patient underwent a laparotomy, gastrotomy and over-sewing of a ulcer that was bleeding in the cardia of the stomach. Gastrostomy tube was placed and he seems to be Doing okay however he has had several melanotic stools today overnight and his hemoglobin dropped to 7.7. He will receive transfusion of 1 unit of blood today. Patient was tolerating tube feedings last evening prior to clamping for the endoscopy procedure. I had been using antacids(Mylanta)to counter acid in the stomach to try to prevent further bleeding. Today however this was discussed with Dr. Lilly guzman and Dr. moise after his endoscopy. We will switch to using Carafate 4 times a day through the G-tube. The antacid will be stopped. I was present for the endoscopy today. We could see the black sutures just beyond the GE junction and there was no bleeding in that area. Two small ulcers were seen in the pre-pyloric area that were not bleeding. No evidence of bleeding or ulcers were noted in the duodenum. The gastric staple line appeared to be intact and the balloon on the G-tube was nicely visualized with no problems noted. (2) H. pylori infection: Code(s): A04.8 - Other specified bacterial intestinal infections Status: Acute Assessment and Plan: Apparently positive H pylori test at [facility] 2 weeks ago patient got 1 week of oral outpatient treatment will try to finish another week after he is more stable. Currently receiving vancomycin and Zosyn as antibiotic coverage. (3) Acute respiratory failure: Onset Date: ~02/07/20 Qualifiers: Respiratory failure complication: unspecified whether with hypoxia or hypercapnia Qualified Code(s): J96.00 - Acute respiratory failure, unspecified whether with hypoxia or hypercapnia Code(s): J96.00 - Acute respiratory failure, unspecified whether with hypoxia or hypercapnia Status: Acute Assessment and Plan: Improving, less acidosis on the ABG. Progressing toward ventilator weaning and extubation as per hospitalist/ music department chair. (4) Anemia: Onset Date: ~01/2020 Qualifiers: Other causes of anemia: acute posthemorrhagic Code(s): D64.9 - Anemia, unspecified Status: Acute Assessment and Plan: hemoglobin improved. Most recently 9.3. Watching serial H&Hs. (5) Elevated troponin: Code(s): R79.89 - Other specified abnormal findings of blood chemistry Status: Acute Assessment and Plan: Most likely was related to his hemorrhagic shock. Dr. Richardson may repeat this again in the next few days. No obvious signs of heart damage at this time. (6) Gastric ulcer: Code(s): K25.9 - Gastric ulcer, unspecified as acute or chronic, without hemorrhage or perforation Status: Acute Assessment and Plan: Status post over sewing with silk suture. Continue Protonix drip and begin tube feedings. See notes above on today's upper GI scope. (7) C2 cervical fracture: Onset Date: Unknown Code(s): S12.100A - Unspecified displaced fracture of second cervical vertebra, initial encounter for closed fracture Status: Acute Assessment and Plan: Patient is in a C-collar protecting this area which is felt to be an extubation of a previously chronic fracture or dislocation of the Ondontoid. Subjective Subjective Date/Time Seen: 02/10/20 12:20 Post Op day: 3 Patient reports: bowel movement (Nurses report liquid stool via the stool containment system 700 cc overnight.) and afebrile Interval history: Patient not able to give any history. Remains intubated on the ventilator. They are beginning to wean the ventilator. Nurse reports that he is down to just
--- NOTE | 2020-02-10 12:39 | WPDINTPN ---
Progress Note: A&P Assessment and Plan (1) Acute respiratory failure: Onset Date: ~02/07/20 Qualifiers: Respiratory failure complication: unspecified whether with hypoxia or hypercapnia Qualified Code(s): J96.00 - Acute respiratory failure, unspecified whether with hypoxia or hypercapnia Code(s): J96.00 - Acute respiratory failure, unspecified whether with hypoxia or hypercapnia Status: Acute Assessment and Plan: Patient was in hemorrhagic shock, unresponsive with apnea, patient was intubated on 02/06/2020 -currently on CMV mode of ventilation, 30% FiO2, 5 of PEEP. -ABGs and chest x-ray reviewed, ventilator adjusted, respiratory rate decreased -most likely respiratory failure related to metabolic acidosis, hemorrhagic shock -on fentanyl Versed infusion for sedation, maintain RASS of 0 to -2, daily sedation vacation -cardiology will be diuresing the patient gently today (2) Hemorrhagic shock: Onset Date: ~02/07/20 Code(s): R57.8 - Other shock Status: Resolved Assessment and Plan: GI bleed with hematemesis, anemia, requiring multiple units of packed RBCs -EGD was done just after midnight on 02/07/2020, which showed large amount of blood clot in the stomach, per gastritis, no intervention could be performed as there was too much blood in the stomach. -02/07/2020: Status post gastrotomy with over stage for bleeding gastric ulcer at the cardia of the stomach and application of anticoagulant, placement of gastrostomy tube -patient is on Levophed and vasopressin. Epinephrine and Abdoul-Synephrine were discontinued. Will maintain mean arterial pressures > 65 mmHg -continue vancomycin and Zosyn. WBC count trending down -hemoglobin has been stable - (3) GI bleed: Onset Date: ~12/2019 Code(s): K92.2 - Gastrointestinal hemorrhage, unspecified Status: Acute Assessment and Plan: Patient with recent GI bleed at [facility] where an EGD was done and showed 3 bleeding gastric ulcers which were cauterized at the end of December 2019. -GI following patient closely, - 02/07/2020: Status post gastrotomy with over stage for bleeding gastric ulcer at the cardia of the stomach and application of anticoagulant, placement of gastrostomy tube -received multiple units of packed RBCs, FFP, cryoprecipitate and platelets. -H&H q.6 hours -Platelet counts better -02/10/2020: Repeat EGD done this morning, showed 2 nonbleeding gastric ulcers the antrum of the stomach, flat clean based. No additional bleeding noted. Duodenum reveals normal bowel and sweep to 2nd portion. -will start Carafate QID - switch Protonix infusion to IV q.12 hours (4) Elevated troponin: Code(s): R79.89 - Other specified abnormal findings of blood chemistry Status: Acute Assessment and Plan: Patient with elevated troponin, possible NSTEMI from severe hemorrhagic shock/anemia given history of coronary artery disease. This could also be type 2 infarct secondary to hypotension and shock -cardiology is already following the patient, -echocardiogram 02/07/2020: LV systolic function is normal EF 55-60%. Grade 1 diastolic dysfunction, right ventricular systolic function is reduced -EKG showed borderline ST abnormalities and high lateral leads (5) Acute kidney injury: Code(s): N17.9 - Acute kidney failure, unspecified Status: Acute Assessment and Plan: Stage 3 chronic kidney disease, CREATININE IMPROVING -urine output has been adequate, -stop and in IV fluids - continue to monitor renal function, electrolytes and urine output -lactic acid 1.9 ( 11.4 on 02/07/2020) -patient on pressors, will maintain mean arterial pressures > 65 mmHg -will replete potassium, phosphorus, magnesium, calcium (6) DVT prophylaxis: Code(s): Z29.9 - Encounter for prophylactic measures, unspecified Status: Acute Assessment and Plan: SCDs, no chemoprophylaxis given GI h
[2020-02-10] MEDS: SUCRALFATE 1 GM TABLET PO ×3 (13:01→20:19)
[2020-02-10] MEDS: PANTOPRAZOLE SODIUM IV 40 MG VIAL IV PUSH ×2 (13:01→20:18)
--- NOTE | 2020-02-10 13:03 | OP_ITS ---
DATE OF PROCEDURE: 02/10/2020 PROCEDURE: Esophagogastroduodenoscopy. PREOPERATIVE DIAGNOSES: History of gastric ulcer, history of massive upper GI bleeding, history of exploratory gastric surgery. DESCRIPTION OF PROCEDURE: Informed consent for this procedure was obtained from the family. The risks, benefits, alternatives, and indications are agreed to the risks include, but are not limited to, adverse reaction to medications including allergies, the risk of bleeding and possible need for transfusion, the risk of perforation and possible need for surgery, and the risk for missed pathology, this agreed to. The patient is already on fentanyl and versed sedation. The DLSn video endoscope is utilized. Fujinon endoscope is passed through the esophagus in the supine position with the head of bed elevated. Endoscope passed through the esophagus, squamocolumnar junction intact at 40 cm. Stomach is seen in its entirety reveals a suture material and puckering of the mucosa at the gastric cardia. There is some erythema in this area and no active bleeding and appears appropriate postsurgical finding. In the mid body of the stomach, transverse suture line with some erosions are identified and appears appropriate healing. Surgically, no actual bleeding is identified at this time. The G-tube balloon from the gastrostomy tube appears in appropriate position in this area. The antrum of the stomach reveals 2 nonbleeding gastric ulcers each measuring approximately 1 cm base size. Clean wide base is noted on each of these gastric ulcers. The duodenum at this time reveals normal bulb and sweep, with no ulcerations evident. IMPRESSION: Adequate suture and surgical findings. No active bleeding. Two gastric ulcers in the antrum. Suture material from over-sewing on more proximal gastric ulcer and transverse suture line with G-tube healing appropriately in mid body of the stomach. PLAN: Is to continue Protonix 40 mg b.i.d. Supplement this with Carafate 1 g p.o. q.i.d. Resume tube feedings as tolerated by the patient. Continue to monitor hemoglobin closely. We will follow with you. The patient has been treated for H. pylori and followup stool for H. pylori antigen in a later date is advised. D I MT: Minesh
--- NOTE | 2020-02-10 15:20 | PM.IMPN ---
Progress Note: A&P Assessment and Plan (1) Hemorrhagic shock: Onset Date: ~02/07/20 Code(s): R57.8 - Other shock Status: Resolved Assessment and Plan: Still on Levophed but able to come off of the BIKE DESIGNER today. BP remaining stable but monitor close due to recent Lasix dose. Hgb stable in the 8-9 range. WBC continues to trend down. Continue broad spectrum abx. Appreciate intensivsit input. (2) Acute respiratory failure: Onset Date: ~02/07/20 Qualifiers: Respiratory failure complication: unspecified whether with hypoxia or hypercapnia Qualified Code(s): J96.00 - Acute respiratory failure, unspecified whether with hypoxia or hypercapnia Code(s): J96.00 - Acute respiratory failure, unspecified whether with hypoxia or hypercapnia Status: Acute Assessment and Plan: Patient intubated and sedated. Wean pressors as BP tolerates. CXR reviewed personally and probably atelectasis. may improve now that the plug is out. Lasix given with excellent UOP. Appreciate intensivst input. (3) Gastric ulcer: Code(s): K25.9 - Gastric ulcer, unspecified as acute or chronic, without hemorrhage or perforation Status: Acute Assessment and Plan: Patient had known gastric ulcers prior to admission. Was being treated for Hpylori. Now POD #3 for gastrotomy for bleeding gastric ulcer at the cardia of the stomach and placement of G-tube. EGD today showing two nonbleeding gastric ulcers. Continue routine post-op management. Continue Protonix and Carafate was added. Appreciate Gen surg and GI input. (4) C2 cervical fracture: Onset Date: Unknown Code(s): S12.100A - Unspecified displaced fracture of second cervical vertebra, initial encounter for closed fracture Status: Acute Assessment and Plan: Patient with recent hx of odontoid fracture and currently in C-collar. Continue the same. (5) Elevated troponin: Code(s): R79.89 - Other specified abnormal findings of blood chemistry Status: Acute Assessment and Plan: Trop to 0.717. EKG (02/05) showing delayed transition without much change on repeat EKG (02/06). Echo showing normal LV systolic function with EF 55-60% and no wall motion abnormalities. DD grade 1 noted. [place] to have Type II IA related to HoTN and acute blood loss. Cardiology following. (6) Syncope: Code(s): R55 - Syncope and collapse Status: Chronic Assessment and Plan: Related to acute GI bleed and hemorrhagic shock. (7) GI bleed: Onset Date: ~12/2019 Code(s): K92.2 - Gastrointestinal hemorrhage, unspecified Status: Acute Assessment and Plan: Related to gastric ulcer. (8) Anemia: Onset Date: ~01/2020 Qualifiers: Anemia type: other cause Other causes of anemia: acute posthemorrhagic Qualified Code(s): D62 - Acute posthemorrhagic anemia Code(s): D64.9 - Anemia, unspecified Status: Acute Assessment and Plan: Patient with acute blood loss anemia. As above. Hgb stable 8-9. Monitor HH closely. Transfuse as needed. (9) CAD (coronary artery disease): Code(s): I25.10 - Atherosclerotic heart disease of [place] coronary artery without angina pectoris Status: Chronic Assessment and Plan: Noted. ASA on hold. (10) H. pylori infection: Code(s): A04.8 - Other specified bacterial intestinal infections Status: Acute Assessment and Plan: Patient diagnosed with Hpylori at the outside hospital. Currently on broad spectrum abx. Oral abx on hold. (11) Hypertension: Code(s): I10 - Essential (primary) hypertension Status: Chronic Assessment and Plan: As above. Lisinopril and hydrochlorothiazide on hold. (12) Chronic renal failure, stage 3 (moderate): Code(s): N18.3 - Chronic kidney disease, stage 3 (moderate) Status: Chronic
[2020-02-10 16:40] LABS: Hematocrit 28.7 % (42.0-52.0); Hemoglobin 9.7 g/dL (14.0-18.0)
[2020-02-10] MEDS: NOREPINEPHRINE 8 MG/D5W 250 ML 8 MG/250 ML BAG 1.9 MG IV CONT (17:06)
[2020-02-11] VITALS (21 sets, daily range): BP systolic 84–115; BP diastolic 48–67; PULSE 60–96; RESP 9–20; TEMP 36.8–38.1; O2SAT 96–100
[2020-02-11 04:31] LABS: Alveolar/Arterial O2 Gradient 93.2 mmHg; Carboxyhemoglobin 0.2 % THb (0-2.0); Fractional Inspired Oxygen 30 %; HCO3 ABG 27.2 mEq/l (22.0-26.0); Methemoglobin ABG 0.4 %THb (0-1.5); Oxygen Content ABG 13.6 %vol (16.0-22.0); Oxygen Saturation ABG 95.5 % (95.0-100.0); Oxyhemoglobin 93.5 % THb (90.0-100.0); PCO2 ABG 39.7 mmHg (35.0-45.0); PO2 ABG 74.1 mmHg (80.0-100.0); PO2 FiO2 Ratio Arterial Blood 2.47 %; Reduced Hemoglobin 5.9 %THb (0-5.0); Total Hemoglobin 10.3 g/dL (12.0-18.0); pH ABG 7.453 (7.350-7.450)
[2020-02-11 04:32] LABS: Arterial Blood Gas PEEP 5 cmH2O; Arterial Blood Gas Vent Mode CMV; Arterial Blood Gas Ventilator rate 14 /MIN; Device VENTILATOR; Site Drawn ARTLINE
[2020-02-11 04:33] LABS: Arterial Blood Gas Tidal Volume 450 ml
[2020-02-11] MEDS: SUCRALFATE 1 GM TABLET PO ×4 (06:08→20:06)
[2020-02-11 06:51] LABS: INR 1.1; Prothrombin Time 13.9 Seconds (11.1-14.7)
[2020-02-11 06:52] LABS: Partial Thromboplastin Time 29.2 SECONDS (22.3-36.8)
[2020-02-11 06:56] LABS: Hematocrit 28.9 % (42.0-52.0); Hemoglobin 9.6 g/dL (14.0-18.0); Mean Corpuscular HGB Conc 33.2 g/dl (32-36); Mean Corpuscular Hemoglobin 30.6 pg (26-34); Mean Platelet Volume 10.6 fl (7.4-10.4); Platelet Count Result 188 k/mm3 (150-375); Red Blood Count 3.14 M/mm3 (4.6-6.20); Red Cell Distribution Width 14.5 % (11.5-14.5); White Blood Count 13.8 K/mm3 (4.5-10.0)
--- NOTE | 2020-02-11 08:01 | WPDGIPROGNO ---
Progress Note: A&P Additional Plan Patient remains intubated. No signs of additional blood loss. Physical exam reveal him to be unless pressors. Low-grade fever described. Lungs reveal a few rhonchi. Heart without murmur. Abdomen is soft PE. Tolerating G-tube feedings. Labs reveal WBC down to 13.8, hemoglobin 9.6 is stable. Elevated AST consistent with resolving shock. Impression 1. Gastric ulcers. Status post exploratory surgery. Over-sewing of gastric ulcer. Plan is to continue proton pump inhibitor. Addition of Carafate at this time as well. Continue monitor hemoglobin. 2. Gastrostomy tube. Placed at the time of surgery. Will help with nutritional support. May need to lavage. May need to lavage periodically to monitor GI bleeding.\ 3. Respiratory failure. Patient remains on ventilator. May have underlying aspiration. Hopefully this will be tapered over the next several days. Subjective Date/time seen: 02/11/20 08:01 Objective Data Vital Signs Vital Signs: Vital Signs - 24 hr 02/10/20 08:19 02/10/20 10:00 02/10/20 11:00 Temperature Pulse Rate 73 78 74 Respiratory Rate 14 Blood Pressure 99/66 L Pulse Oximetry 97 100 99 02/10/20 11:40 02/10/20 11:45 02/10/20 11:50 Temperature 37.2 C 37.2 C 37.2 C Pulse Rate 82 84 91 Respiratory Rate 16 18 22 H Blood Pressure 103/71 103/67 87/75 L Pulse Oximetry 99 98 95 02/10/20 11:55 02/10/20 12:00 02/10/20 13:30 Temperature 37.2 C 37.2 C Pulse Rate 85 85 91 Respiratory Rate 25 H 22 H Blood Pressure 126/80 119/79 Pulse Oximetry 97 99 98 02/10/20 14:00 02/10/20 16:00 02/10/20 16:30 Temperature 38.1 C H Pulse Rate 100 97 98 Respiratory Rate 14 10 L Blood Pressure 127/76 104/73 Pulse Oximetry 100 97 97 02/10/20 17:58 02/10/20 17:59 02/10/20 18:45 Temperature 38.4 C H 38.4 C H Pulse Rate 98 98 Respiratory Rate 18 Blood Pressure 89/57 L Pulse Oximetry 100 02/10/20 20:00 02/10/20 20:15 06/12/20 22:00 Temperature 38.4 C H 38.5 C H Pulse Rate 92 98 91 Respiratory Rate 14 14 Blood Pressure 85/54 L 89/56 L Pulse Oximetry 98 97 99 02/10/20 23:04 02/11/20 00:00 02/11/20 01:33 Temperature 38.1 C H Pulse Rate 90 91 96 Respiratory Rate 9 L Blood Pressure 97/60 L Pulse Oximetry 100 99 100 02/11/20 02:00 02/11/20 04:00 02/11/20 05:23 Temperature 38.0 C H 37.2 C Pulse Rate 91 88 68 Respiratory Rate 13 18 Blood Pressure 98/60 L 110/67 Pulse Oximetry 96 98 97 02/11/20 05:56 02/11/20 06:00 02/11/20 07:22 Temperature 36.8 C Pulse Rate 84 83 73 Respiratory Rate 16 Blood Pressure 110/64 Pulse Oximetry 100 97 Intake/Output Intake/Output: Intake & Output 02/08/20 02/09/20 02/10/20 02/11/20 23:59 23:59 23:59 23:59 Intake Total 4140 4944 3063 678 Output Total 2200 3350 6650 3950 Balance 1940 4850 -6906 -5379 Meds/Results Medications: Active Medications Generic Name Dose Route Start Last Admin Trade Name Freq PRN Reason Stop Dose Admin Norepinephrine Bitartrate 8 mg in 250 mls @ 5.625 mls/hr 02/06/20 20:25 02/11/20 06:27 Levophed 8 Mg/D5w 250 Ml IV CONT 3 mcg/min .[id number] MARY 5.6 mls/hr Titration Protocol 3 MCG/MIN Midazolam HCl 50 mg in 100 mls @ 2 mls/hr 02/06/20 22:55 02/11/20 06:01 Versed 50 Mg/D5w 100 Ml IV CONT 1 mg/hr .Q50H MARY 2 mls/hr Titration Protocol 1 MG/HR Fentanyl Citrate 2,500 mcg in 250 mls @ 2.5 mls/hr 02/06/20 22:55 02/10/20 17:13 Fentanyl 2,500 Mcg/Ns 250 Ml IV CONT 25 mcg/hr .Q72H MARY 2.5 mls/hr Titration Protocol 25 MCG/HR Piperacillin Sod/Tazobactam Sod 2.25 gm in 50 mls @ 100 mls/hr 02/07/20 12:20 02/11/20 07:31 Zosyn 2.25 Gm/D5w 50 Ml IVPB Infused Q6HR MARY Infusion Vancomycin HCl 1,250 mg in 250 mls @ 200 mls/hr 02/10/20 15:00 02/11/20 05:26 Vancomycin 1,250 Mg/D5w 250 Ml IVPB Infused Q12H MARY Infusion Lidocaine HCl 0.3 ml 02/07/20 13:38 Xylocaine
[2020-02-11] MEDS: PANTOPRAZOLE SODIUM IV 40 MG VIAL IV PUSH ×2 (08:29→20:06)
[2020-02-11 08:52] LABS: Alanine Aminotransferase 260 U/L (4-50); Albumin Level 2.4 g/dL (3.5-5.1); Alkaline Phosphatase 54 U/L (38-126); Aspartate Amino Transferase 128 U/L (17-59); Bilirubin,Total 0.2 mg/dL (0.2-1.3); Blood Urea Nitrogen 21 mg/dL (9-20); Calcium 7.6 mg/dL (8.4-10.2); Carbon Dioxide 31 mmol/L (22-30); Chloride 100 mmol/L (98-107); Estimated CRCL calculation 50 ml/min; Estimated Glomerular Filt Rate 48; Glucose 137 mg/dL (75-110); Magnesium 2.1 mg/dL (1.6-2.3); Phosphorus 2.7 mg/dL (2.5-4.5); Potassium 3.6 mmol/L (3.4-5.0); Sodium 133 mmol/L (137-145)
--- NOTE | 2020-02-11 08:56 | PM.IMPN ---
Progress Note: A&P Assessment and Plan (1) Hemorrhagic shock: Onset Date: ~02/07/20 Code(s): R57.8 - Other shock Status: Resolved Assessment and Plan: Still on Levophed but able to come off of the PHOTOGRAPHIC INTELLIGENCE OFFICER on 02/10/20. BP remaining stable. Hgb stable in the 8-9 range. WBC continues to trend down but now with fevers. DVT? Fungal infection? Atelectasis? phlebitis/central line related? Doppler ordered. Continue broad spectrum abx. Appreciate intensivsit input. Doppler negative for DVT. (2) Acute respiratory failure: Onset Date: ~02/07/20 Qualifiers: Respiratory failure complication: unspecified whether with hypoxia or hypercapnia Qualified Code(s): J96.00 - Acute respiratory failure, unspecified whether with hypoxia or hypercapnia Code(s): J96.00 - Acute respiratory failure, unspecified whether with hypoxia or hypercapnia Status: Acute Assessment and Plan: Patient intubated and sedated. Wean pressors as BP tolerates. CXR reviewed personally and probably atelectasis. May improve now that the plug is out. Lasix given with excellent UOP. Appreciate intensivst input. (3) Gastric ulcer: Code(s): K25.9 - Gastric ulcer, unspecified as acute or chronic, without hemorrhage or perforation Status: Acute Assessment and Plan: Patient had known gastric ulcers prior to admission. Was being treated for Hpylori. Now POD #4 for gastrotomy for bleeding gastric ulcer at the cardia of the stomach and placement of G-tube. EGD on 02/09 showing two nonbleeding gastric ulcers. Continue routine post-op management. Continue Protonix and Carafate. Appreciate Gen surg and GI input. (4) Elevated LFTs: Code(s): R79.89 - Other specified abnormal findings of blood chemistry Status: Acute Assessment and Plan: AST is up and down past 4 days but ALT climbing (although possibly leveling off today). Bili and AP normal. Consider medications or congestive pattern (that may be improving with Lasix). Continue to monitor for now. (5) C2 cervical fracture: Onset Date: Unknown Code(s): S12.100A - Unspecified displaced fracture of second cervical vertebra, initial encounter for closed fracture Status: Acute Assessment and Plan: Patient with recent hx of odontoid fracture and currently in C-collar. Continue the same. (6) Elevated troponin: Code(s): R79.89 - Other specified abnormal findings of blood chemistry Status: Acute Assessment and Plan: Trop to 0.717. EKG (02/05) showing delayed transition without much change on repeat EKG (02/06). Echo showing normal LV systolic function with EF 55-60% and no wall motion abnormalities. DD grade 1 noted. [place] to have Type II [place] related to HoTN and acute blood loss. Cardiology following. (7) Syncope: Code(s): R55 - Syncope and collapse Status: Chronic Assessment and Plan: Related to acute GI bleed and hemorrhagic shock. (8) GI bleed: Onset Date: ~12/2019 Code(s): K92.2 - Gastrointestinal hemorrhage, unspecified Status: Acute Assessment and Plan: Related to gastric ulcer. (9) Anemia: Onset Date: ~01/2020 Qualifiers: Anemia type: other cause Other causes of anemia: acute posthemorrhagic Qualified Code(s): D62 - Acute posthemorrhagic anemia Code(s): D64.9 - Anemia, unspecified Status: Acute Assessment and Plan: Patient with acute blood loss anemia. As above. Hgb stable 8-9. Monitor HH closely. Transfuse as needed. (10) CAD (coronary artery disease): Code(s): I25.10 - Atherosclerotic heart disease of [place] coronary artery without angina pectoris Status: Chronic Assessment and Plan: Noted. ASA on hold. (11) H. pylori infection: Code(s): A04.8 - Other specified bacterial intestinal infections Status: Acute A
--- NOTE | 2020-02-11 10:22 | PM.PNCARD ---
Progress Note: A&P Assessment and Plan (1) Volume overload: Code(s): E87.70 - Fluid overload, unspecified Status: Acute Assessment and Plan: Multiple L positive over the past couple of days. Auto diuresing at this point. hold off on further furosemide. Replace lytes as needed (2) Elevated troponin: Code(s): R79.89 - Other specified abnormal findings of blood chemistry Status: Acute Assessment and Plan: Likely type 2 related (3) Hemorrhagic shock: Onset Date: ~02/07/20 Code(s): R57.8 - Other shock Status: Resolved Assessment and Plan: More stable. wean Levophed to off today (4) CAD (coronary artery disease): Code(s): I25.10 - Atherosclerotic heart disease of [place] coronary artery without angina pectoris Status: Chronic Assessment and Plan: will eventually restart cardiac regimen when able Subjective Date/time seen: 02/11/20 10:22 Interval history: 59yo male here for hemorrhagic shock and respiratory failure. Date of service 02/11/2020: He is still intubated and sedated bed more stable. Weaning pressors. No arrhythmia. Urine output has markedly increased. Review of Systems Constitutional: Constitutional: Reports no additional constitutional complaints Eyes: Eyes: Reports no additional eye complaints ENT: Reports system reviewed and no additional complaints, except as documented Cardiovascular: Cardiovascular: Reports as per HPI and Reports lightheadedness Respiratory: Respiratory: Reports no additional respiratory complaints Genitourinary: Genitourinary: Reports no additional male genitourinary complaints Musculoskeletal: Musculoskeletal: Reports no additional musculoskeletal complaints Integumentary/Breasts: Skin/Breast: Reports system reviewed and no additional complaints, except as docu Neurologic: Reports as per HPI Hematologic/Lymphatic: Hematologic/Lymphatic: Reports no additional hematologic/lymphatic complaints Allergic/Immunologic: Allergic/Immunologic: Reports no additional allergic/immunologic complaints Exam Const: General: comfortable and no acute distress HENMT: Mouth: Yes dry mucous membranes Eyes: Sclera: sclerae normal Pupils: Equal, round and reactive pupils present Neck: Neck: no JVD Other: Exam very difficult with the patient's C-collar in place Resp: Effort & Inspection: normal respiratory effort Auscultation: clear to auscultation bilaterally Cardio: Rate: regular rate Rhythm: regular rhythm Other: PMI nondisplaced no murmur no gallop GI: Auscultation: normal bowel sounds Skin: General skin exam: normal color Neuro: Cranial nerves: Yes Equal, round and reactive pupils present Cognition (Neuro): normal cognition Extrem: General: normal to inspection Right upper extremity: edema Left upper extremity: edema Right lower extremity: edema Left lower extremity: edema Objective Data Vital Signs Vital Signs: Vital Signs - 24 hr 02/10/20 11:00 02/10/20 11:40 02/10/20 11:45 Temperature 37.2 C 37.2 C Pulse Rate 74 82 84 Respiratory Rate 16 18 Blood Pressure 103/71 103/67 Pulse Oximetry 99 99 98 02/10/20 11:50 02/10/20 11:55 02/10/20 12:00 Temperature 37.2 C 37.2 C 37.2 C Pulse Rate 91 85 85 Respiratory Rate 22 H 25 H 22 H Blood Pressure 87/75 L 126/80 119/79 Pulse Oximetry 95 97 99 02/10/20 13:30 02/10/20 14:00 02/10/20 16:00 Temperature 38.1 C H Pulse Rate 91 100 97 Respiratory Rate 14 10 L Blood Pressure 127/76 104/73 Pulse Oximetry 98 100 97 02/10/20 16:30 02/10/20 17:58 02/10/20 17:59 Temperature 38.4 C H Pulse Rate 98 98 98 Respiratory Rate 18 Blood Pressure 89/57 L Pulse Oximetry 97 100 02/10/20 18:45 02/10/20 20:00 02/10/20 20:15 Temperature 38.4 C H 38.4 C H Pulse Rate 92 98 Respiratory Rate 14 Blood Pressure 85/54 L Pulse Oximetry 98 97 02/10/20 22:00 02/10/20 23:04 02/11/20 00:00 Temperature 38.5 C H
--- NOTE | 2020-02-11 10:57 | PM.PNGS ---
Progress Note: A&P Assessment and Plan (1) GI bleed: Onset Date: ~12/2019 Code(s): K92.2 - Gastrointestinal hemorrhage, unspecified Status: Acute Assessment and Plan: This was the main reason for my involvement. Patient underwent a laparotomy, gastrotomy and over-sewing of a ulcer that was bleeding in the cardia of the stomach. Gastrostomy tube was placed and he seems to be making gradual improvement. Patient has been tolerating tube feedings at goal rate since late yesterday after the endoscopy procedure. I had been using antacids(Mylanta)to counter acid in the stomach to try to prevent further bleeding, however this was discussed with Dr. Richardson and Dr. Harrison after his endoscopy. We will switch to using Carafate 4 times a day through the G-tube. The antacid has been stopped. (2) H. pylori infection: Code(s): A04.8 - Other specified bacterial intestinal infections Status: Acute Assessment and Plan: Apparently positive H pylori test at [facility] 2 weeks ago patient got 1 week of oral outpatient treatment will try to finish another week after he is more stable. Currently receiving vancomycin and Zosyn as antibiotic coverage. (3) Acute respiratory failure: Onset Date: ~02/07/20 Qualifiers: Respiratory failure complication: unspecified whether with hypoxia or hypercapnia Qualified Code(s): J96.00 - Acute respiratory failure, unspecified whether with hypoxia or hypercapnia Code(s): J96.00 - Acute respiratory failure, unspecified whether with hypoxia or hypercapnia Status: Acute Assessment and Plan: Improving, less acidosis on the ABG. Progressing toward ventilator weaning and extubation as per hospitalist/ draw press operator. (4) Anemia: Onset Date: ~01/2020 Qualifiers: Anemia type: other cause Other causes of anemia: acute posthemorrhagic Qualified Code(s): D62 - Acute posthemorrhagic anemia Code(s): D64.9 - Anemia, unspecified Status: Acute Assessment and Plan: hemoglobin improved. Most recently 9.3. Watching serial H&Hs. (5) Elevated troponin: Code(s): R79.89 - Other specified abnormal findings of blood chemistry Status: Acute Assessment and Plan: Most likely was related to his hemorrhagic shock. Dr. Richardson may repeat this again in the next few days. No obvious signs of heart damage at this time. (6) Gastric ulcer: Code(s): K25.9 - Gastric ulcer, unspecified as acute or chronic, without hemorrhage or perforation Status: Acute Assessment and Plan: Status post over sewing with silk suture. Continue Protonix drip and begin tube feedings. See notes on yesterday's upper GI scope. Two other not bleeding ulcers in the gastric pyloric area were identified on endoscopy. The seemed to be shallow at the time. (7) C2 cervical fracture: Onset Date: Unknown Code(s): S12.100A - Unspecified displaced fracture of second cervical vertebra, initial encounter for closed fracture Status: Acute Assessment and Plan: Patient is in a C-collar protecting this area which is felt to be an extubation of a previously chronic fracture or dislocation of the [place]. Subjective Subjective Date/Time Seen: 02/11/20 10:57 Post Op day: 4 (Seems to be improving some each day.) Interval history: Still intubated on the ventilator. However, is weaning this. Patient still has some sedation going on and is not indicating any specific pain. Review of Systems Review of Systems: Narrative: Patient is still intubated and on the ventilator. Cannot participate in review of systems. Exam Const: General: cooperative, no acute distress, well developed and other ( Sedated on ventilator.) Nutritional Appearance: well nourished Orientation/consciousness: patient oriented x3 Limitations: no limitations HENMT: Head: normal to inspection, normoceph
--- NOTE | 2020-02-11 11:01 | WPDINTPN ---
Progress Note: A&P Assessment and Plan (1) Acute respiratory failure: Onset Date: ~02/07/20 Qualifiers: Respiratory failure complication: unspecified whether with hypoxia or hypercapnia Qualified Code(s): J96.00 - Acute respiratory failure, unspecified whether with hypoxia or hypercapnia Code(s): J96.00 - Acute respiratory failure, unspecified whether with hypoxia or hypercapnia Status: Acute Assessment and Plan: Patient was in hemorrhagic shock, unresponsive with apnea, patient was intubated on 02/06/2020 -currently on CMV mode of ventilation, 30% FiO2, 5 of PEEP. -ABGs and chest x-ray reviewed, ventilator adjusted, respiratory rate decreased -most likely respiratory failure related to metabolic acidosis, hemorrhagic shock -will start Precedex infusion wean fentanyl and Versed infusion to off. Will wake patient up in place with ASV mode of ventilation and/or SBT -patient diuresed very well. Negative is 7200 mL in fluid balance the last 24 hours (2) Hemorrhagic shock: Onset Date: ~02/07/20 Code(s): R57.8 - Other shock Status: Resolved Assessment and Plan: STABILIZED - GI bleed with hematemesis, anemia, requiring multiple units of packed RBCs -EGD was done just after midnight on 02/07/2020, which showed large amount of blood clot in the stomach, per gastritis, no intervention could be performed as there was too much blood in the stomach. -02/07/2020: Status post gastrotomy with over stage for bleeding gastric ulcer at the cardia of the stomach and application of anticoagulant, placement of gastrostomy tube -patient is on low-dose Levophed, off vasopressin. Will maintain mean arterial pressures > 65 mmHg -continue vancomycin and Zosyn. - Continues to have fevers, will obtain lower extremity venous Dopplers. WBC count trending down -hemoglobin has been stable - (3) GI bleed: Onset Date: ~12/2019 Code(s): K92.2 - Gastrointestinal hemorrhage, unspecified Status: Acute Assessment and Plan: Patient with recent GI bleed at [facility] where an EGD was done and showed 3 bleeding gastric ulcers which were cauterized at the end of December 2019. -GI following patient closely, - 02/07/2020: Status post gastrotomy with over stage for bleeding gastric ulcer at the cardia of the stomach and application of anticoagulant, placement of gastrostomy tube -received multiple units of packed RBCs, FFP, cryoprecipitate and platelets. -H&H q.6 hours -Platelet counts better -02/10/2020: Repeat EGD done this morning, showed 2 nonbleeding gastric ulcers the antrum of the stomach, flat clean based. No additional bleeding noted. Duodenum reveals normal bowel and sweep to 2nd portion. -continue Carafate and Protonix IV (4) Elevated troponin: Code(s): R79.89 - Other specified abnormal findings of blood chemistry Status: Acute Assessment and Plan: Patient with elevated troponin, possible NSTEMI from severe hemorrhagic shock/anemia given history of coronary artery disease. This could also be type 2 infarct secondary to hypotension and shock -cardiology is already following the patient, -echocardiogram 02/07/2020: LV systolic function is normal EF 55-60%. Grade 1 diastolic dysfunction, right ventricular systolic function is reduced -EKG showed borderline ST abnormalities and high lateral leads (5) Acute kidney injury: Code(s): N17.9 - Acute kidney failure, unspecified Status: Acute Assessment and Plan: Stage 3 chronic kidney disease, CREATININE IMPROVING -urine output very good -stopped IV fluids -continue to monitor renal function, electrolytes and urine output -lactic acid 1.9 ( 11.4 on 02/07/2020) -patient on pressors, will maintain mean arterial pressures > 65 mmHg (6) DVT prophylaxis: Code(s): Z29.9 - Encounter for prophylactic measures, unspecified Status: Acute Assessment and Plan: SCDs, no c
[2020-02-11 11:38] LABS: Glucose Point of Care 102 (65-105)
[2020-02-11 14:53] LABS: Vancomycin Trough 22.4 ug/mL (10.0-20.0)
[2020-02-12] VITALS (21 sets, daily range): BP systolic 89–127; BP diastolic 51–78; PULSE 65–104; RESP 10–30; TEMP 37.3–38.1; O2SAT 95–100
[2020-02-12 04:51] LABS: Alveolar/Arterial O2 Gradient 92.5 mmHg; Base Excess ABG 2.6 mEq/l (+/-2.0); Carboxyhemoglobin 0.3 % THb (0-2.0); Fractional Inspired Oxygen 30 %; HCO3 ABG 26.1 mEq/l (22.0-26.0); Methemoglobin ABG 0.4 %THb (0-1.5); Oxygen Content ABG 14.7 %vol (16.0-22.0); Oxygen Saturation ABG 96.4 % (95.0-100.0); Oxyhemoglobin 94.6 % THb (90.0-100.0); PCO2 ABG 36.2 mmHg (35.0-45.0); PO2 ABG 78.9 mmHg (80.0-100.0); PO2 FiO2 Ratio Arterial Blood 2.63 %; Reduced Hemoglobin 4.7 %THb (0-5.0); pH ABG 7.476 (7.350-7.450)
[2020-02-12 04:52] LABS: Arterial Blood Gas PEEP 5 cmH2O; Arterial Blood Gas Tidal Volume 450 ml; Arterial Blood Gas Vent Mode CMV; Arterial Blood Gas Ventilator rate 14 /MIN; Device VENTILATOR; Site Drawn ARTLINE
[2020-02-12] MEDS: SUCRALFATE 1 GM TABLET PO ×4 (05:58→20:49)
[2020-02-12 06:10] LABS: Hematocrit 27.3 % (42.0-52.0); Hemoglobin 8.8 g/dL (14.0-18.0); Mean Corpuscular HGB Conc 32.2 g/dl (32-36); Mean Corpuscular Hemoglobin 29.7 pg (26-34); Mean Corpuscular Volume 92.2 fl (80-100); Mean Platelet Volume 10.1 fl (7.4-10.4); Platelet Count Result 208 k/mm3 (150-375); Red Blood Count 2.96 M/mm3 (4.6-6.20); Red Cell Distribution Width 14.4 % (11.5-14.5); White Blood Count 14.5 K/mm3 (4.5-10.0)
[2020-02-12 06:20] LABS: INR 1.1; Prothrombin Time 13.4 Seconds (11.1-14.7)
[2020-02-12 06:21] LABS: Partial Thromboplastin Time 27.6 SECONDS (22.3-36.8)
[2020-02-12 06:25] LABS: Alanine Aminotransferase 155 U/L (4-50); Albumin Level 2.4 g/dL (3.5-5.1); Alkaline Phosphatase 55 U/L (38-126); Aspartate Amino Transferase 46 U/L (17-59); Bilirubin,Total 0.2 mg/dL (0.2-1.3); Blood Urea Nitrogen 17 mg/dL (9-20); Calcium 7.5 mg/dL (8.4-10.2); Carbon Dioxide 30 mmol/L (22-30); Chloride 103 mmol/L (98-107); Estimated CRCL calculation 50 ml/min; Estimated Glomerular Filt Rate 48; Glucose 116 mg/dL (75-110); Magnesium 1.9 mg/dL (1.6-2.3); Phosphorus 2.8 mg/dL (2.5-4.5); Potassium 3.7 mmol/L (3.4-5.0); Sodium 135 mmol/L (137-145)
--- NOTE | 2020-02-12 07:53 | WPDGIPROGNO ---
Progress Note: A&P Additional Plan Patient remains on the ventilator. No signs of active GI bleeding evident. He has developed a fever intermittently. Physical exam reveals patient be on vent. Lungs reveal a few rhonchi. Heart without murmur. Abdomen is soft. Bowel sounds present. Incision appears to be healing G-tube in place. Tolerating G-tube feedings. Labs reveal WBC 14.5, hemoglobin 8.8, hematocrit 27.3, Impression 1. Gastric ulcers. Status post bleeding, status post exploratory surgery and over-sewing of gastric ulcer. Plan to continue PPI. Supplement this with Carafate. Tube feedings to be advanced per surgical service. Two. Respiratory failure. Patient remains on ventilator. Likely related to shock. Hopefully he can be weaned over the next several days. 3. Fever. Etiology unclear. He is on empiric antibiotics at this time. 4. Shock. Status post massive GI bleeding. Patient remains on low-dose pressors. Doses to be tapered is his blood pressure allows. Subjective Date/time seen: 02/12/20 07:53 Objective Data Vital Signs Vital Signs: Vital Signs - 24 hr 02/11/20 08:00 02/11/20 10:00 02/11/20 10:55 Temperature 36.9 C Pulse Rate 80 82 87 Respiratory Rate 16 14 Blood Pressure 113/66 84/48 L Pulse Oximetry 100 99 100 02/11/20 12:00 02/11/20 13:58 02/11/20 13:59 Temperature 37.7 C H 37.1 C Pulse Rate 85 89 87 Respiratory Rate 16 14 Blood Pressure 97/56 L 103/61 Pulse Oximetry 100 100 100 02/11/20 16:00 02/11/20 16:50 02/11/20 18:00 Temperature 36.9 C Pulse Rate 89 81 72 Respiratory Rate 20 14 Blood Pressure 115/63 103/59 L Pulse Oximetry 100 99 98 02/11/20 20:00 02/11/20 20:20 02/11/20 22:00 Temperature 37.8 C H 38.1 C H Pulse Rate 79 78 78 Respiratory Rate 12 15 Blood Pressure 113/65 114/65 Pulse Oximetry 99 99 100 02/11/20 23:20 02/12/20 00:00 02/12/20 02:00 Temperature 38.1 C H Pulse Rate 80 86 72 Respiratory Rate 14 14 Blood Pressure 95/58 L 89/51 L Pulse Oximetry 99 95 96 02/12/20 02:20 02/12/20 04:00 02/12/20 05:37 Temperature 37.4 C Pulse Rate 66 67 65 Respiratory Rate 14 Blood Pressure 96/54 L Pulse Oximetry 98 98 98 02/12/20 06:00 02/12/20 07:45 Temperature 37.3 C Pulse Rate 67 71 Respiratory Rate 10 L Blood Pressure 122/67 Pulse Oximetry 99 98 Intake/Output Intake/Output: Intake & Output 02/09/20 02/10/20 02/11/20 02/12/20 23:59 23:59 23:59 23:59 Intake Total 4944 3063 1787 559 Output Total 3350 6664 5605 1375 Balance 1594 -3587 -3863 -816 Meds/Results Medications: Active Medications Generic Name Dose Route Start Last Admin Trade Name Freq PRN Reason Stop Dose Admin Norepinephrine Bitartrate 8 mg in 250 mls @ 3.8 mls/hr 02/06/20 20:25 02/11/20 16:30 Levophed 8 Mg/D5w 250 Ml IV CONT 2 mcg/min .[id number] MARY 3.8 mls/hr Titration Protocol Piperacillin Sod/Tazobactam Sod 2.25 gm in 50 mls @ 100 mls/hr 02/07/20 12:20 02/12/20 06:33 Zosyn 2.25 Gm/D5w 50 Ml IVPB Infused Q6HR MARY Infusion Dexmedetomidine HCl 400 mcg in 100 mls @ 4.26 mls/hr 02/11/20 10:30 02/12/20 06:32 Precedex 400 Mcg/100 Ml IV CONT 0.2 mcg/kg/hr .[id number] MARY 4.3 mls/hr Administration Protocol 0.2 MCG/KG/HR Vancomycin HCl 1,250 mg in 250 mls @ 200 mls/hr 02/11/20 21:00 02/11/20 21:30 Vancomycin 1,250 Mg/D5w 250 Ml IVPB Infused Q18H MARY Infusion Lidocaine HCl 0.3 ml 02/07/20 13:38 Xylocaine 2% Local Inj INTRADERM ONCE PRN to numb area Morphine Sulfate 2 mg 02/07/20 18:14 Morphine Sulfate Inj IV PUSH Q2H PRN Pain Rated 4-6 Multi-Ingred Cream/Lotion/Oil/Oint 1 applic 02/07/20 09:00 02/11/20 20:06 Lubrifresh Pm Eye Ointment EACH EYE 1 applic Q12HR MARY Administration Naloxone HCl 0.1 mg 02/07/20 18:14 Narcan IV PUSH Q2M PRN Opiate Reversal Pantoprazole Sodium 40 mg 02/10/20 12:05 02/11/20 20:06 Protonix I
[2020-02-12] MEDS: PANTOPRAZOLE SODIUM IV 40 MG VIAL IV PUSH ×2 (08:49→20:49)
[2020-02-12] MEDS: FUROSEMIDE INJ 40 MG/4 ML VIAL 20 MG IV PUSH (08:49)
--- NOTE | 2020-02-12 09:28 | WPDINTPN ---
Progress Note: A&P Assessment and Plan (1) Acute respiratory failure: Onset Date: ~02/07/20 Qualifiers: Respiratory failure complication: unspecified whether with hypoxia or hypercapnia Qualified Code(s): J96.00 - Acute respiratory failure, unspecified whether with hypoxia or hypercapnia Code(s): J96.00 - Acute respiratory failure, unspecified whether with hypoxia or hypercapnia Status: Acute Assessment and Plan: Patient was in hemorrhagic shock, unresponsive with apnea, patient was intubated on 02/06/2020 -currently on CMV mode of ventilation, 30% FiO2, 5 of PEEP. -ABGs and chest x-ray reviewed, -most likely respiratory failure related to metabolic acidosis, hemorrhagic shock -patient on Precedex infusion, placed him on SBT and will evaluate for extubation -will diurese today as patient is still positive fluid balance (2) Hemorrhagic shock: Onset Date: ~02/07/20 Code(s): R57.8 - Other shock Status: Resolved Assessment and Plan: STABILIZED -OFF LEVOPHED - GI bleed with hematemesis, anemia, requiring multiple units of packed RBCs -EGD was done just after midnight on 02/07/2020, which showed large amount of blood clot in the stomach, per gastritis, no intervention could be performed as there was too much blood in the stomach. -02/07/2020: Status post gastrotomy with over stage for bleeding gastric ulcer at the cardia of the stomach and application of anticoagulant, placement of gastrostomy tube -OFF Levophed, off vasopressin. Will maintain mean arterial pressures > 65 mmHg -continue vancomycin and Zosyn. - Continues to have low grade fevers, lower extremity venous Dopplers were negative for DVT. WBC count trending down -hemoglobin has been stable - (3) GI bleed: Onset Date: ~12/2019 Code(s): K92.2 - Gastrointestinal hemorrhage, unspecified Status: Acute Assessment and Plan: Patient with recent GI bleed at [facility] where an EGD was done and showed 3 bleeding gastric ulcers which were cauterized at the end of December 2019. -GI following patient closely, - 02/07/2020: Status post gastrotomy with over stage for bleeding gastric ulcer at the cardia of the stomach and application of anticoagulant, placement of gastrostomy tube -received multiple units of packed RBCs, FFP, cryoprecipitate and platelets. -H&H q.6 hours -Platelet counts better -02/10/2020: Repeat EGD done this morning, showed 2 nonbleeding gastric ulcers the antrum of the stomach, flat clean based. No additional bleeding noted. Duodenum reveals normal bowel and sweep to 2nd portion. -continue Carafate and Protonix IV (4) Elevated troponin: Code(s): R79.89 - Other specified abnormal findings of blood chemistry Status: Acute Assessment and Plan: Patient with elevated troponin, possible NSTEMI from severe hemorrhagic shock/anemia given history of coronary artery disease. This could also be type 2 infarct secondary to hypotension and shock -cardiology is already following the patient, -echocardiogram 02/07/2020: LV systolic function is normal EF 55-60%. Grade 1 diastolic dysfunction, right ventricular systolic function is reduced -EKG showed borderline ST abnormalities and high lateral leads (5) Acute kidney injury: Code(s): N17.9 - Acute kidney failure, unspecified Status: Acute Assessment and Plan: Stage 3 chronic kidney disease, CREATININE IMPROVING -urine output very good -stopped IV fluids -continue to monitor renal function, electrolytes and urine output -lactic acid 1.9 ( 11.4 on 02/07/2020) -patient on pressors, will maintain mean arterial pressures > 65 mmHg (6) DVT prophylaxis: Code(s): Z29.9 - Encounter for prophylactic measures, unspecified Status: Acute Assessment and Plan: SCDs, no chemoprophylaxis given GI hemorrhage and hemorrhagic shock (7) Anemia: Onset Date: ~01/2020 Qualifie
[2020-02-12 10:30] LABS: Base Excess ABG 5.7 mEq/l (+/-2.0); Fractional Inspired Oxygen 30 %; HCO3 ABG 28.8 mEq/l (22.0-26.0); Oxygen Saturation ABG 98.8 % (95.0-100.0); Oxyhemoglobin 97.3 % THb (90.0-100.0); PCO2 ABG 36.5 mmHg (35.0-45.0); Total Hemoglobin 10.8 g/dL (12.0-18.0)
[2020-02-12 10:31] LABS: Device VENTILATOR; Site Drawn ARTLINE; pH ABG 7.515 (7.350-7.450)
[2020-02-12 10:32] LABS: Arterial Blood Gas PEEP 5 cmH2O; Arterial Blood Gas Pressure Support 8 cmH2O; Arterial Blood Gas Vent Mode SPONTANEOUS
--- NOTE | 2020-02-12 10:43 | PM.PNCARD ---
Progress Note: A&P Assessment and Plan (1) Volume overload: Code(s): E87.70 - Fluid overload, unspecified Status: Acute Assessment and Plan: Multiple L positive over the past couple of days. Auto diuresing at this point. hold off on further furosemide. KCl 40 mEq IV x1 (2) Elevated troponin: Code(s): R79.89 - Other specified abnormal findings of blood chemistry Status: Acute Assessment and Plan: Likely type 2 related (3) Hemorrhagic shock: Onset Date: ~02/07/20 Code(s): R57.8 - Other shock Status: Resolved Assessment and Plan: More stable. wean Levophed to off today (4) CAD (coronary artery disease): Code(s): I25.10 - Atherosclerotic heart disease of [place] coronary artery without angina pectoris Status: Chronic Assessment and Plan: will eventually restart cardiac regimen when able Subjective Date/time seen: 02/12/20 10:43 Interval history: 59yo male here for hemorrhagic shock and respiratory failure. Date of service 02/12/2020: He is still intubated and sedated bed more stable. Weaning pressors. No arrhythmia. Review of Systems Constitutional: Constitutional: Reports no additional constitutional complaints Eyes: Eyes: Reports no additional eye complaints ENT: Reports system reviewed and no additional complaints, except as documented Cardiovascular: Cardiovascular: Reports as per HPI and Reports lightheadedness Respiratory: Respiratory: Reports no additional respiratory complaints Genitourinary: Genitourinary: Reports no additional male genitourinary complaints Musculoskeletal: Musculoskeletal: Reports no additional musculoskeletal complaints Integumentary/Breasts: Skin/Breast: Reports system reviewed and no additional complaints, except as docu Neurologic: Reports as per HPI Hematologic/Lymphatic: Hematologic/Lymphatic: Reports no additional hematologic/lymphatic complaints Allergic/Immunologic: Allergic/Immunologic: Reports no additional allergic/immunologic complaints Exam Const: General: comfortable and no acute distress HENMT: Mouth: Yes dry mucous membranes Eyes: Sclera: sclerae normal Pupils: Equal, round and reactive pupils present Neck: Neck: no JVD Other: Exam very difficult with the patient's C-collar in place Resp: Effort & Inspection: normal respiratory effort Auscultation: clear to auscultation bilaterally Other: Inspiratory wheezes noted Cardio: Rate: regular rate Rhythm: regular rhythm Other: PMI nondisplaced no murmur no gallop GI: Auscultation: normal bowel sounds Skin: General skin exam: normal color Neuro: Cranial nerves: Yes Equal, round and reactive pupils present Cognition (Neuro): normal cognition Extrem: General: normal to inspection Right upper extremity: edema Left upper extremity: edema Right lower extremity: edema Left lower extremity: edema Objective Data Vital Signs Vital Signs: Vital Signs - 24 hr 02/11/20 10:55 02/11/20 12:00 02/11/20 13:58 Temperature 37.7 C H Pulse Rate 87 85 89 Respiratory Rate 16 Blood Pressure 97/56 L Pulse Oximetry 100 100 100 02/11/20 13:59 02/11/20 16:00 02/11/20 16:50 Temperature 37.1 C 36.9 C Pulse Rate 87 89 81 Respiratory Rate 14 20 Blood Pressure 103/61 115/63 Pulse Oximetry 100 100 99 02/11/20 18:00 02/11/20 20:00 02/11/20 20:20 Temperature 37.8 C H Pulse Rate 72 79 78 Respiratory Rate 14 12 Blood Pressure 103/59 L 113/65 Pulse Oximetry 98 99 99 02/11/20 22:00 02/11/20 23:20 02/12/20 00:00 Temperature 38.1 C H 38.1 C H Pulse Rate 78 80 86 Respiratory Rate 15 14 Blood Pressure 114/65 95/58 L Pulse Oximetry 100 99 95 02/12/20 02:00 02/12/20 02:20 02/12/20 04:00 Temperature 37.4 C Pulse Rate 72 66 67 Respiratory Rate 14 14 Blood Pressure 89/51 L 96/54 L Pulse Oximetry 96 98 98 02/12/20 05:37 02/12/20 06:00 02/12/20 07:45 Temperature 37.3 C Pulse Rate 65 6
[2020-02-12] MEDS: KCL 20 MEQ/SW 100 ML 100 ML 50 MEQ IVPB (12:43)
--- NOTE | 2020-02-12 12:54 | PM.IMPN ---
Progress Note: A&P Assessment and Plan (1) Hemorrhagic shock: Onset Date: ~02/07/20 Code(s): R57.8 - Other shock Status: Resolved Assessment and Plan: Able to come off Levophed on 02/10 and [employer] on 02/10/20. BP remaining stable. Hgb stable in the 8-9 range. WBC about the same and fever curve improving. No DVT. Consider: Fungal infection? Atelectasis? phlebitis/central line related? Continue broad spectrum abx. Appreciate intensivsit input. (2) Acute respiratory failure: Onset Date: ~02/07/20 Qualifiers: Respiratory failure complication: unspecified whether with hypoxia or hypercapnia Qualified Code(s): J96.00 - Acute respiratory failure, unspecified whether with hypoxia or hypercapnia Code(s): J96.00 - Acute respiratory failure, unspecified whether with hypoxia or hypercapnia Status: Acute Assessment and Plan: Patient successfully extubated. Seadation off but still with the residual effects. CXR reviewed personally with atelectasis. Good pulmonary toilet. Appreciate intensivst input. (3) Gastric ulcer: Code(s): K25.9 - Gastric ulcer, unspecified as acute or chronic, without hemorrhage or perforation Status: Acute Assessment and Plan: Patient had known gastric ulcers prior to admission. Was being treated for Hpylori. Now POD #5 for gastrotomy for bleeding gastric ulcer at the cardia of the stomach and placement of G-tube. EGD on 02/09 showing two nonbleeding gastric ulcers. Continue routine post-op management. Continue Protonix and Carafate. Appreciate Gen surg and GI input. (4) Elevated LFTs: Code(s): R79.89 - Other specified abnormal findings of blood chemistry Status: Acute Assessment and Plan: AST and ALT elevated realted to above. Levels trending dwonward now. Bili and AP normal. Consider congestive pattern (that may be improving with Lasix). Continue to monitor for now. (5) C2 cervical fracture: Onset Date: Unknown Code(s): S12.100A - Unspecified displaced fracture of second cervical vertebra, initial encounter for closed fracture Status: Acute Assessment and Plan: Patient with recent hx of odontoid fracture and currently in C-collar. Continue the same. (6) Elevated troponin: Code(s): R79.89 - Other specified abnormal findings of blood chemistry Status: Acute Assessment and Plan: Trop to 0.717. EKG (02/05) showing delayed transition without much change on repeat EKG (02/06). Echo showing normal LV systolic function with EF 55-60% and no wall motion abnormalities. DD grade 1 noted. [place] to have Type II [place] related to HoTN and acute blood loss. Cardiology following. (7) Syncope: Code(s): R55 - Syncope and collapse Status: Chronic Assessment and Plan: Related to acute GI bleed and hemorrhagic shock. (8) GI bleed: Onset Date: ~12/2019 Code(s): K92.2 - Gastrointestinal hemorrhage, unspecified Status: Acute Assessment and Plan: Related to gastric ulcer. (9) Anemia: Onset Date: ~01/2020 Qualifiers: Anemia type: other cause Other causes of anemia: acute posthemorrhagic Qualified Code(s): D62 - Acute posthemorrhagic anemia Code(s): D64.9 - Anemia, unspecified Status: Acute Assessment and Plan: Patient with acute blood loss anemia. As above. Hgb stable 8-9. Monitor HH closely. Transfuse as needed. (10) CAD (coronary artery disease): Code(s): I25.10 - Atherosclerotic heart disease of [place] coronary artery without angina pectoris Status: Chronic Assessment and Plan: Noted. ASA on hold. (11) H. pylori infection: Code(s): A04.8 - Other specified bacterial intestinal infections Status: Acute Assessment and Plan: Patient diagnosed with Hpylori at the outside hospital. Currently on broad spectrum abx. Ora
--- NOTE | 2020-02-12 21:45 | PM.PNGS ---
Progress Note: A&P Assessment and Plan (1) GI bleed: Onset Date: ~12/2019 Code(s): K92.2 - Gastrointestinal hemorrhage, unspecified Status: Acute Assessment and Plan: This was the main reason for my involvement. Patient underwent a laparotomy, gastrotomy and over-sewing of a ulcer that was bleeding in the cardia of the stomach. Gastrostomy tube was placed and he seems to be making gradual improvement. Patient has been tolerating tube feedings at goal rate since late Thursday after the endoscopy procedure. I had been usiing antacids(Mylanta)to counter acid in the stomach to try to prevent further bleeding, however this was discussed with Dr. Richardson and Dr. Harrison after his endoscopy. We will switch to using Carafate 4 times a day through the G-tube. The antacid has been stopped. (2) H. pylori infection: Code(s): A04.8 - Other specified bacterial intestinal infections Status: Acute Assessment and Plan: Apparently positive H pylori test at [facility] 2 weeks ago patient got 1 week of oral outpatient treatment will try to finish another week after he is more stable. Currently receiving vancomycin and Zosyn as antibiotic coverage. (3) Acute respiratory failure: Onset Date: ~02/07/20 Qualifiers: Respiratory failure complication: unspecified whether with hypoxia or hypercapnia Qualified Code(s): J96.00 - Acute respiratory failure, unspecified whether with hypoxia or hypercapnia Code(s): J96.00 - Acute respiratory failure, unspecified whether with hypoxia or hypercapnia Status: Acute Assessment and Plan: Improving, less acidosis on the ABG. Progressing toward ventilator weaning and extubation as per hospitalist/ community education coordinator. (4) Anemia: Onset Date: ~01/2020 Qualifiers: Anemia type: other cause Other causes of anemia: acute posthemorrhagic Qualified Code(s): D62 - Acute posthemorrhagic anemia Code(s): D64.9 - Anemia, unspecified Status: Acute Assessment and Plan: hemoglobin improved. Most recently 8.8. Watching serial H&Hs. (5) Elevated troponin: Code(s): R79.89 - Other specified abnormal findings of blood chemistry Status: Acute Assessment and Plan: Most likely was related to his hemorrhagic shock. Dr. Richardson may repeat this again in the next few days. No obvious signs of heart damage at this time. (6) Gastric ulcer: Code(s): K25.9 - Gastric ulcer, unspecified as acute or chronic, without hemorrhage or perforation Status: Acute Assessment and Plan: Status post over sewing with silk suture. Continue Protonix drip and begin tube feedings. See notes on yesterday's upper GI scope. Two other not bleeding ulcers in the gastric pyloric area were identified on endoscopy. The seemed to be shallow at the time. (7) C2 cervical fracture: Onset Date: Unknown Code(s): S12.100A - Unspecified displaced fracture of second cervical vertebra, initial encounter for closed fracture Status: Acute Assessment and Plan: Patient is in a C-collar protecting this area which is felt to be an extubation of a previously chronic fracture or dislocation of the Ondontoid. Subjective Subjective Date/Time Seen: 02/12/20 21:45 Post Op day: 5 Interval history: Patient is still on low-dose Levophed. Vasopressin is off. Has developed fever from unknown etiology. Will need to watch wound as there was slight purulent drainage present there. Patient remains on the ventilator. No signs of active GI bleeding evident. Review of Systems Review of Systems: Narrative: Patient on the ventilator unable to participate in review of systems. Exam Const: General: cooperative, no acute distress, well developed and other ( Sedated on ventilator.) Nutritional Appearance: well nourished Limitations: no limitations HENMT: Head: normal to inspection, normocep
[2020-02-13] VITALS (11 sets, daily range): BP systolic 125–137; BP diastolic 72–80; PULSE 75–101; RESP 16–25; TEMP 36.6–37.6; O2SAT 96–99
[2020-02-13 04:38] LABS: Blood Urea Nitrogen 18 mg/dL (9-20); Calcium 7.9 mg/dL (8.4-10.2); Carbon Dioxide 32 mmol/L (22-30); Chloride 102 mmol/L (98-107); Estimated CRCL calculation 44 ml/min; Estimated Glomerular Filt Rate 48; Glucose 109 mg/dL (75-110); Magnesium 1.9 mg/dL (1.6-2.3); Phosphorus 3.1 mg/dL (2.5-4.5); Potassium 3.6 mmol/L (3.4-5.0); Sodium 136 mmol/L (137-145)
[2020-02-13 04:39] LABS: Basophils Percent Auto 0.3 % (0.2-1.2); Eosinophils Absolute Auto 0.9 K/mm3 (0-0.3); Hematocrit 28.4 % (42.0-52.0); Hemoglobin 9.1 g/dL (14.0-18.0); Immature Granulocyte Absolute 0.11 K/mm3 (0.00-0.031); Immature Granulocyte Percent A 0.7 % (0-0.5); Lymphocytes Absolute Auto 1.09 K/mm3 (0.9-3.2); Lymphocytes Percent Auto 7.3 % (18.3-44.2); Mean Corpuscular Hemoglobin 29.3 pg (26-34); Mean Corpuscular Volume 91.3 fl (80-100); Mean Platelet Volume 9.9 fl (7.4-10.4); Monocytes Percent Auto 13.1 % (2.6-8.5); Neutrophils Absolute Auto 10.9 K/mm3 (1.3-6.7); Neutrophils Percent Auto 72.6 % (45.5-73.1); Platelet Count Result 279 k/mm3 (150-375); Red Blood Count 3.11 M/mm3 (4.6-6.20); Red Cell Distribution Width 14.3 % (11.5-14.5)
[2020-02-13] MEDS: SUCRALFATE 1 GM TABLET PO ×4 (05:25→20:26)
--- NOTE | 2020-02-13 08:29 | WPDGIPROGNO ---
Progress Note: A&P Additional Plan Patient now extubated. Alert and oriented. He is off of pressor agents at this time. No additional bleeding reported. Physical exam reveals patient to be alert. Vital signs are stable. Lungs reveal a few rhonchi. Heart without murmur. Abdomen bowel sounds are present soft peg tube noted in left upper quadrant. Labs reveal hemoglobin 9.1, hematocrit 28.4, MCV 91. WBC 15 K. total bilirubin 0.2, AST 46, ALT 155. Marked improvement after resolution of shock. Impression 1. Gastric ulcer. Status post surgery and over-sewing of gastric ulcer. Will continue Protonix intravenously. Supplemented with Carafate at this time. Follow-up EGD in a month or 2 advised ultimately. 2. G-tube placed at time of surgery. Will be used as a backup patient should be able to advance diet today. 3. Cervical spine fracture. Patient remains in the C-spine collar. 4. Respiratory failure. Patient now extubated. Appears to be breathing well on his own. Subjective Date/time seen: 02/13/20 08:29 Objective Data Vital Signs Vital Signs: Vital Signs - 24 hr 02/12/20 10:00 02/12/20 11:05 02/12/20 12:00 Temperature 38.1 C H Pulse Rate 92 94 104 H Respiratory Rate 26 H 22 H 30 H Blood Pressure 122/65 126/69 Pulse Oximetry 97 97 95 02/12/20 14:00 02/12/20 16:00 02/12/20 18:00 Temperature 38.1 C H Pulse Rate 100 96 96 Respiratory Rate 30 H 28 H 28 H Blood Pressure 121/75 121/69 125/74 Pulse Oximetry 97 99 100 02/12/20 19:16 02/12/20 20:00 02/12/20 20:26 Temperature 38.1 C H 37.9 C H Pulse Rate 91 88 Respiratory Rate 24 H 27 H Blood Pressure 127/78 Pulse Oximetry 100 100 02/12/20 21:06 02/12/20 22:00 02/12/20 22:04 Temperature 37.9 C H 37.8 C H Pulse Rate 85 87 88 Respiratory Rate 27 H 22 H Blood Pressure 116/60 Pulse Oximetry 96 100 02/13/20 00:00 02/13/20 02:00 02/13/20 03:33 Temperature 37.5 C 37.4 C Pulse Rate 84 81 92 Respiratory Rate 21 H 25 H 20 Blood Pressure 125/78 127/72 Pulse Oximetry 98 96 96 02/13/20 04:00 02/13/20 06:00 Temperature 37.3 C Pulse Rate 89 88 Respiratory Rate 22 H 22 H Blood Pressure 135/72 137/77 Pulse Oximetry 96 99 Intake/Output Intake/Output: Intake & Output 02/10/20 02/11/20 02/12/20 02/13/20 23:59 23:59 23:59 23:59 Intake Total 3063 1787 1538 100 Output Total 6650 5650 4125 900 [facility] -[phone] -800 Meds/Results Medications: Active Medications Generic Name Dose Route Start Last Admin Trade Name Freq PRN Reason Stop Dose Admin Norepinephrine Bitartrate 8 mg in 250 mls @ 0 mls/hr 02/06/20 20:25 02/12/20 08:00 Levophed 8 Mg/D5w 250 Ml IV CONT 0 mcg/min .Q0M MARY 0 mls/hr Titration Protocol Piperacillin Sod/Tazobactam Sod 2.25 gm in 50 mls @ 100 mls/hr 02/07/20 12:20 02/13/20 06:02 Zosyn 2.25 Gm/D5w 50 Ml IVPB Infused Q6HR MARY Infusion Vancomycin HCl 1,250 mg in 250 mls @ 200 mls/hr 02/11/20 21:00 02/12/20 19:00 Vancomycin 1,250 Mg/D5w 250 Ml IVPB Infused Q18H MARY Infusion Lidocaine HCl 0.3 ml 02/07/20 13:38 Xylocaine 2% Local Inj INTRADERM ONCE PRN to numb area Morphine Sulfate 2 mg 02/07/20 18:14 Morphine Sulfate Inj IV PUSH Q2H PRN Pain Rated 4-6 Multi-Ingred Cream/Lotion/Oil/Oint 1 applic 02/07/20 09:00 02/12/20 20:39 Lubrifresh Pm Eye Ointment EACH EYE Not Given Q12HR MARY Naloxone HCl 0.1 mg 02/07/20 18:14 Narcan IV PUSH Q2M PRN Opiate Reversal Pantoprazole Sodium 40 mg 02/10/20 12:05 02/12/20 20:49 Protonix Iv IV PUSH 40 mg Q12HR MARY Administration Sucralfate 1 gm 02/10/20 12:05 02/13/20 05:25 Carafate PO 1 gm ACHS MARY Administration Radiology Results: ITS Impressions Head CT 02/06/20 10:07 IMPRESSION: 1. Normal aging brain. No acute intracranial process. Hip/Pelvis X-Ray 02/06/20 10:20 Impression: 1: No acute fracture. 2: Mil
[2020-02-13] MEDS: PANTOPRAZOLE SODIUM IV 40 MG VIAL IV PUSH ×2 (09:23→20:26)
--- NOTE | 2020-02-13 09:38 | WPDINTPN ---
Progress Note: A&P Assessment and Plan (1) Acute respiratory failure: Onset Date: ~02/07/20 Qualifiers: Respiratory failure complication: unspecified whether with hypoxia or hypercapnia Qualified Code(s): J96.00 - Acute respiratory failure, unspecified whether with hypoxia or hypercapnia Code(s): J96.00 - Acute respiratory failure, unspecified whether with hypoxia or hypercapnia Status: Acute Assessment and Plan: Patient was in hemorrhagic shock, unresponsive with apnea, patient was intubated on 02/06/2020 -extubated successfully on 02/12/2020 -encourage incentive spirometry -up to chair, PT/OT have been ordered (2) Hemorrhagic shock: Onset Date: ~02/07/20 Code(s): R57.8 - Other shock Status: Resolved Assessment and Plan: RESOLVED - GI bleed with hematemesis, anemia, requiring multiple units of packed RBCs -EGD was done just after midnight on 02/07/2020, which showed large amount of blood clot in the stomach, per gastritis, no intervention could be performed as there was too much blood in the stomach. -02/07/2020: Status post gastrotomy with over stage for bleeding gastric ulcer at the cardia of the stomach and application of anticoagulant, placement of gastrostomy tube -OFF Levophed, off vasopressin. Will maintain mean arterial pressures > 65 mmHg -continue vancomycin and Zosyn. - Continues to have low grade fevers, lower extremity venous Dopplers were negative for DVT. WBC count trending down, LIKELY FROM WOUND DEHISCENCE -hemoglobin has been stable (3) GI bleed: Onset Date: ~12/2019 Code(s): K92.2 - Gastrointestinal hemorrhage, unspecified Status: Acute Assessment and Plan: Patient with recent GI bleed at [facility] where an EGD was done and showed 3 bleeding gastric ulcers which were cauterized at the end of December 2019. -GI following patient closely, - 02/07/2020: Status post gastrotomy with over stage for bleeding gastric ulcer at the cardia of the stomach and application of anticoagulant, placement of gastrostomy tube -received multiple units of packed RBCs, FFP, cryoprecipitate and platelets. -H&H q.6 hours -Platelet counts better -02/10/2020: Repeat EGD done this morning, showed 2 nonbleeding gastric ulcers the antrum of the stomach, flat clean based. No additional bleeding noted. Duodenum reveals normal bowel and sweep to 2nd portion. -continue Carafate and Protonix IV (4) Elevated troponin: Code(s): R79.89 - Other specified abnormal findings of blood chemistry Status: Acute Assessment and Plan: Patient with elevated troponin, possible NSTEMI from severe hemorrhagic shock/anemia given history of coronary artery disease. This could also be type 2 infarct secondary to hypotension and shock -cardiology is already following the patient, -echocardiogram 02/07/2020: LV systolic function is normal EF 55-60%. Grade 1 diastolic dysfunction, right ventricular systolic function is reduced -EKG showed borderline ST abnormalities and high lateral leads (5) Acute kidney injury: Code(s): N17.9 - Acute kidney failure, unspecified Status: Acute Assessment and Plan: Stage 3 chronic kidney disease, CREATININE IMPROVING -urine output very good -stopped IV fluids -continue to monitor renal function, electrolytes and urine output (6) DVT prophylaxis: Code(s): Z29.9 - Encounter for prophylactic measures, unspecified Status: Acute Assessment and Plan: SCDs, no chemoprophylaxis given GI hemorrhage and hemorrhagic shock (7) Anemia: Onset Date: ~01/2020 Qualifiers: Anemia type: other cause Other causes of anemia: acute posthemorrhagic Qualified Code(s): D62 - Acute posthemorrhagic anemia Code(s): D64.9 - Anemia, unspecified Status: Acute Assessment and Plan: Anemia likely related to GI bleed, will continue to monitor H&H and transfu
--- NOTE | 2020-02-13 11:02 | PCDIET ---
Nutrition Follow-Up Complete: Inadequate oral/enteral intake related to GI bleed as evidenced by NPO status. Patient to meet estimated nutritional needs. Goal: Progressing towards goal. Continue current goal. Pt current nutrition is NPO. Nutrition recommendation: Heart Healthy Last recorded weight is 82.6 kg. Bowel Motility: Labs Reviewed:WBC 15.0, Na 136, GFR 48, Cr 1.5, Hgb 9.1, Hct 28.4 Meds Noted:Protonix, Zosyn, Vanc Additional Notes: Pt extubated. Currently A&O. G tube in place if pt cannot tolerate PO intake. [employer]CH[employer]IC to see today for swallow study. On room air. PT/OT to see. We will continue to monitor for adequate PO intake every three days.
--- NOTE | 2020-02-13 13:34 | PCOTNOTE ---
Hold per RN. Patient needs triple lumen catheter out. Will attempt OT evaluation when medically appropriate.
--- NOTE | 2020-02-13 13:34 | PCPTNOTE ---
Hold PT evaluation per RN, secondary to triple lumen line in place, will attempt evaluation when medically appropriate.
--- NOTE | 2020-02-13 15:13 | PM.PNCARD ---
Progress Note: A&P Assessment and Plan (1) Volume overload: Code(s): E87.70 - Fluid overload, unspecified Status: Acute Assessment and Plan: Diuresing well. Continue monitoring input and output. Bronchodilator therapy per primary service as warranted. Will need to exercise caution with any ambulation and to avoid intravascular volume depletion to minimize orthostasis and or fall risk. Hold on diuresis for the time being. (2) Elevated troponin: Code(s): R79.89 - Other specified abnormal findings of blood chemistry Status: Acute Assessment and Plan: Likely type 2 related no clear evidence of acute coronary syndrome. (3) Hemorrhagic shock: Onset Date: ~02/07/20 Code(s): R57.8 - Other shock Status: Resolved Assessment and Plan: More stable. wean Levophed to off today (4) CAD (coronary artery disease): Code(s): I25.10 - Atherosclerotic heart disease of [place] coronary artery without angina pectoris Status: Chronic Assessment and Plan: Eventually resume cardiovascular medical therapy. Aspirin when able. Avoid NSAIDs. Statin therapy. Subjective Date/time seen: Date of service: 02/13/20 15:13 Follow-up for hemorrhagic shock and respiratory failure Interval history: Extubated yesterday, doing well from this perspective. Received IV Lasix, diuresing well. Denies chest pain or shortness of breath. Hemodynamically stable, heart rate control no arrhythmias. No new issues overnight. Patient will be transferred to the floor today. Review of Systems Review of Systems: All systems reviewed & are unremarkable except as noted in HPI and below Constitutional: Constitutional: Reports no additional constitutional complaints Eyes: Eyes: Reports no additional eye complaints ENT: Reports system reviewed and no additional complaints, except as documented Cardiovascular: Cardiovascular: Reports as per HPI, Denies chest pain and Denies palpitations Respiratory: Respiratory: Reports no additional respiratory complaints, Denies hemoptysis, Denies dyspnea and Denies dyspnea on exertion Gastrointestinal: Gastrointestinal: Denies no additional gastrointestinal complaints and Denies abdominal pain Genitourinary: Genitourinary: Reports no additional male genitourinary complaints and Denies hematuria Musculoskeletal: Musculoskeletal: Reports no additional musculoskeletal complaints and Denies back pain Integumentary/Breasts: Skin/Breast: Reports system reviewed and no additional complaints, except as docu Neurologic: Reports system reviewed and no additional complaints, except as documented, Reports as per HPI and Denies headache(s) Psychiatric: Psychiatric: Reports no additional psychiatric complaints, Denies anxiety and Denies confusion Hematologic/Lymphatic: Hematologic/Lymphatic: Reports no additional hematologic/lymphatic complaints Allergic/Immunologic: Allergic/Immunologic: Reports no additional allergic/immunologic complaints Exam Narrative: Exam Narrative: Very pleasant gentleman lying supine in bed Const: General: comfortable and no acute distress HENMT: Mouth: Yes dry mucous membranes Eyes: Sclera: sclerae normal Pupils: Equal, round and reactive pupils present Neck: Neck: no JVD Other: Neck exam limited due to C-collar Resp: Effort & Inspection: normal respiratory effort Auscultation: clear to auscultation bilaterally Other: Inspiratory wheezes noted Cardio: Rate: regular rate Rhythm: regular rhythm Other: PMI nondisplaced no murmur no gallop GI: Auscultation: normal bowel sounds Skin: General skin exam: normal color Neuro: Cranial nerves: Yes Equal, round and reactive pupils present Cognition (Neuro): normal cognition Extrem: General: normal to inspection Right upper extremity: edema Left upper extremity: edema Right lower extremity: edema Left lower extremity: edema Objective Data Vital Signs Vital Signs:
--- NOTE | 2020-02-13 15:55 | PCSTNOTE ---
Please refer to the Bedside Swallow Evaluation in the EMR.
--- NOTE | 2020-02-13 16:25 | PM.IMPN ---
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 BP remaining stable. Hgb stable in the 8-9 range. WBC about the same but fever rcurrent mostly at night. No DVT. Consider: Fungal infection? Atelectasis? phlebitis/central line related? Continue broad spectrum abx. Appreciate intensivsit input. (2) Acute respiratory failure: Onset Date: ~02/07/20 Qualifiers: Respiratory failure complication: unspecified whether with hypoxia or hypercapnia Qualified Code(s): J96.00 - Acute respiratory failure, unspecified whether with hypoxia or hypercapnia Code(s): J96.00 - Acute respiratory failure, unspecified whether with hypoxia or hypercapnia Status: Acute Assessment and Plan: Patient successfully extubated. Patient more awake and appropriate but still confused. CXR reviewed personally with atelectasis. Continue good pulmonary toilet. Appreciate intensivst input. Probably has ICU neuropathy as well (possibly related to C-spine but feel less likely). (3) Gastric ulcer: Code(s): K25.9 - Gastric ulcer, unspecified as acute or chronic, without hemorrhage or perforation Status: Acute Assessment and Plan: Patient had known gastric ulcers prior to admission. Was being treated for Hpylori. Now POD #6 for gastrotomy for bleeding gastric ulcer at the cardia of the stomach and placement of G-tube. EGD on 02/09 showing two nonbleeding gastric ulcers. Continue routine post-op management. Continue Protonix and Carafate. Diet started. Appreciate Gen surg and GI input. (4) Elevated LFTs: Code(s): R79.89 - Other specified abnormal findings of blood chemistry Status: Acute Assessment and Plan: AST and ALT elevated realted to above. Levels trending dwonward now. Bili and AP normal. Consider congestive pattern (that may be improving with Lasix). Continue to monitor intermittently. (5) C2 cervical fracture: Onset Date: Unknown Code(s): S12.100A - Unspecified displaced fracture of second cervical vertebra, initial encounter for closed fracture Status: Acute Assessment and Plan: Patient with recent hx of odontoid fracture and currently in C-collar. Continue the same. (6) Elevated troponin: Code(s): R79.89 - Other specified abnormal findings of blood chemistry Status: Acute Assessment and Plan: Trop to 0.717. EKG (02/05) showing delayed transition without much change on repeat EKG (02/06). Echo showing normal LV systolic function with EF 55-60% and no wall motion abnormalities. DD grade 1 noted. [place] to have Type II MO related to HoTN and acute blood loss. Cardiology following. (7) Syncope: Code(s): R55 - Syncope and collapse Status: Chronic Assessment and Plan: Related to acute GI bleed and hemorrhagic shock. (8) GI bleed: Onset Date: ~12/2019 Code(s): K92.2 - Gastrointestinal hemorrhage, unspecified Status: Acute Assessment and Plan: Related to gastric ulcer. (9) Anemia: Onset Date: ~01/2020 Qualifiers: Anemia type: other cause Other causes of anemia: acute posthemorrhagic Qualified Code(s): D62 - Acute posthemorrhagic anemia Code(s): D64.9 - Anemia, unspecified Status: Acute Assessment and Plan: Patient with acute blood loss anemia. As above. Hgb stable 8-9. Monitor HH closely. Transfuse as needed. (10) CAD (coronary artery disease): Code(s): I25.10 - Atherosclerotic heart disease of [place] coronary artery without angina pectoris Status: Chronic Assessment and Plan: Noted. ASA on hold. (11) H. pylori infection: Code(s): A04.8 - Other specified bacterial intestinal infections St
--- NOTE | 2020-02-13 16:54 | PM.PNGS ---
Progress Note: A&P Assessment and Plan (1) GI bleed: Onset Date: ~12/2019 Code(s): K92.2 - Gastrointestinal hemorrhage, unspecified Status: Acute Assessment and Plan: This was the main reason for my involvement. Patient underwent a laparotomy, gastrotomy and over-sewing of a ulcer that was bleeding in the cardia of the stomach. Gastrostomy tube was placed and he seems to be making gradual improvement. Patient has been tolerating tube feedings at goal rate since late Thursday after the endoscopy procedure. I had been usiing antacids(Mylanta)to counter acid in the stomach to try to prevent further bleeding, however this was discussed with Dr. Richardson and Dr. Harrison after his endoscopy. We will switch to using Carafate 4 times a day through the G-tube. The antacid has been stopped. Since patient is now extubated if he passed a swallow test to get started on clear liquids. We could then plan on cutting back to doing night type tube feedings only and letting him begin to drink and then subsequently eat during the day time. May be xavier to start a 3 day calorie count. (2) H. pylori infection: Code(s): A04.8 - Other specified bacterial intestinal infections Status: Acute Assessment and Plan: Apparently positive H pylori test at [facility] 2 weeks ago patient got 1 week of oral outpatient treatment will try to finish another week after he is more stable. Currently receiving vancomycin and Zosyn as antibiotic coverage. One were able to stop IV antibiotics we could consider 1 more week of treatment with appropriate antibiotics for this problem. (3) Acute respiratory failure: Onset Date: ~02/07/20 Qualifiers: Respiratory failure complication: unspecified whether with hypoxia or hypercapnia Qualified Code(s): J96.00 - Acute respiratory failure, unspecified whether with hypoxia or hypercapnia Code(s): J96.00 - Acute respiratory failure, unspecified whether with hypoxia or hypercapnia Status: Acute Assessment and Plan: Improving, less acidosis on the ABG. extubation as per hospitalist/ scientist late yesterday. Patient is now able to talk and answer questions. (4) Anemia: Onset Date: ~01/2020 Qualifiers: Anemia type: other cause Other causes of anemia: acute posthemorrhagic Qualified Code(s): D62 - Acute posthemorrhagic anemia Code(s): D64.9 - Anemia, unspecified Status: Acute Assessment and Plan: hemoglobin improved. Most recently 9.1. Watching serial H&Hs. (5) Elevated troponin: Code(s): R79.89 - Other specified abnormal findings of blood chemistry Status: Acute Assessment and Plan: Most likely was related to his hemorrhagic shock. Dr. Richardson may repeat this again in the next few days. No obvious signs of heart damage at this time. (6) Gastric ulcer: Code(s): K25.9 - Gastric ulcer, unspecified as acute or chronic, without hemorrhage or perforation Status: Acute Assessment and Plan: Status post over sewing with silk suture. Continue Protonix drip and begin tube feedings. See notes on yesterday's upper GI scope. Two other not bleeding ulcers in the gastric pyloric area were identified on endoscopy. The seemed to be shallow at the time. (7) C2 cervical fracture: Onset Date: Unknown Code(s): S12.100A - Unspecified displaced fracture of second cervical vertebra, initial encounter for closed fracture Status: Acute Assessment and Plan: Patient is in a C-collar protecting this area which is felt to be an extubation of a previously chronic fracture or dislocation of the Ondontoid. Subjective Subjective Date/Time Seen: 02/13/20 16:54 Post Op day: Postop day # 6. Patient reports: no new complaints Interval history: Patient denies much abdominal pain even though he has the incision from surgery 6 days ago. He will be getting a
--- NOTE | 2020-02-13 20:25 | PC.NURSE ---
Report given to Nurse for 250. Change room to 251. All belongings given. No further questions. Patient stable.
[2020-02-14] VITALS: BP 144/74; PULSE 97; RESP 16; TEMP 37.1; O2SAT 96
[2020-02-14 02:44] LABS: Hematocrit 30.6 % (42.0-52.0); Hemoglobin 9.9 g/dL (14.0-18.0)
[2020-02-14 03:06] LABS: Prealbumin 12.4 mg/dL (17.6-36.0)
[2020-02-14 04:03] LABS: Vancomycin Trough 18.4 ug/mL (10.0-20.0)
[2020-02-14] MEDS: SUCRALFATE 1 GM TABLET PO ×4 (05:36→21:44)
[2020-02-14 06:32] LABS: Basophils Absolute Auto 0.1 K/mm3 (0.0-0.1); Basophils Percent Auto 0.5 % (0.2-1.2); Eosinophils Absolute Auto 0.6 K/mm3 (0-0.3); Eosinophils Percent Auto 4.5 % (0-4.4); Hematocrit 28.9 % (42.0-52.0); Hemoglobin 9.3 g/dL (14.0-18.0); Immature Granulocyte Absolute 0.14 K/mm3 (0.00-0.031); Lymphocytes Absolute Auto 1.02 K/mm3 (0.9-3.2); Lymphocytes Percent Auto 7.1 % (18.3-44.2); Mean Corpuscular HGB Conc 32.2 g/dl (32-36); Mean Corpuscular Hemoglobin 29.5 pg (26-34); Mean Corpuscular Volume 91.7 fl (80-100); Mean Platelet Volume 10.2 fl (7.4-10.4); Monocytes Absolute Auto 1.6 K/mm3 (0.1-0.6); Neutrophils Absolute Auto 10.8 K/mm3 (1.3-6.7); Neutrophils Percent Auto 75.9 % (45.5-73.1); Platelet Count Result 347 k/mm3 (150-375); Red Blood Count 3.15 M/mm3 (4.6-6.20); Red Cell Distribution Width 14.1 % (11.5-14.5); White Blood Count 14.3 K/mm3 (4.5-10.0)
[2020-02-14 06:44] LABS: Alanine Aminotransferase 93 U/L (4-50); Albumin Level 2.8 g/dL (3.5-5.1); Alkaline Phosphatase 66 U/L (38-126); Aspartate Amino Transferase 36 U/L (17-59); Bilirubin,Total < 0.1 mg/dL (0.2-1.3); Blood Urea Nitrogen 18 mg/dL (9-20); Calcium 8.1 mg/dL (8.4-10.2); Carbon Dioxide 26 mmol/L (22-30); Chloride 103 mmol/L (98-107); Estimated CRCL calculation 56 ml/min; Estimated Glomerular Filt Rate 57; Glucose 149 mg/dL (75-110); Magnesium 1.9 mg/dL (1.6-2.3); Phosphorus 2.5 mg/dL (2.5-4.5); Potassium 3.4 mmol/L (3.4-5.0); Sodium 134 mmol/L (137-145)
[2020-02-14] MEDS: PANTOPRAZOLE SODIUM IV 40 MG VIAL IV PUSH ×2 (09:19→22:42)
--- NOTE | 2020-02-14 10:08 | WPDGIPROGNO ---
Progress Note: A&P Additional Plan Patient alert and comfortable this morning. Out on the floor. States he is hungry. Denies abdominal pain bleeding. Physical exam reveals Vital Signs to be stable. He is anicteric. Remains in cervical collar. Lungs are clear. Heart without murmur. Abdomen soft nontender incision healing well. Gastrostomy tube in place. Impression 1. Gastric ulcers. Status post bleeding. Status post surgical over-sewing of bleeding ulcer. Plan is to continue PPI. Advance diet. Follow up in EGD in 1-2 months advised. 2. Respiratory failure. Patient improving dramatic bleed. Now off ventilator breathing adequately. 3. G-tube in place. Plan is to advance diet. G-tube will be supplemental in removed when diet tolerated. 4. Cervical spine fracture. Patient remain in cervical collar per their discretion. Patient is very weak. Physical therapy should began soon. Subjective Date/time seen: 02/14/20 10:08 Objective Data Vital Signs Vital Signs: Vital Signs - 24 hr 02/13/20 12:00 02/13/20 14:00 02/13/20 16:00 Temperature 36.6 C Pulse Rate 86 87 75 Respiratory Rate 16 18 Blood Pressure 134/76 137/80 Pulse Oximetry 97 99 02/13/20 20:00 02/14/20 00:00 Temperature 37.1 C Pulse Rate 88 97 Respiratory Rate 17 16 Blood Pressure 144/74 H Pulse Oximetry 97 96 Intake/Output Intake/Output: Intake & Output 02/11/20 02/12/20 02/13/20 02/14/20 23:59 23:59 23:59 23:59 Intake Total 1787 3810 115 2194 Output Total 5692 4125 2750 1800 [facility] [phone] Meds/Results Medications: Active Medications Generic Name Dose Route Start Last Admin Trade Name Freq PRN Reason Stop Dose Admin Piperacillin Sod/Tazobactam Sod 2.25 gm in 50 mls @ 100 mls/hr 02/07/20 12:20 02/14/20 06:05 Zosyn 2.25 Gm/D5w 50 Ml IVPB Infused Q6HR MARY Infusion Vancomycin HCl 1,250 mg in 250 mls @ 200 mls/hr 02/11/20 21:00 02/14/20 05:03 Vancomycin 1,250 Mg/D5w 250 Ml IVPB Infused Q18H MARY Infusion Lidocaine HCl 0.3 ml 02/07/20 13:38 Xylocaine 2% Local Inj INTRADERM ONCE PRN to numb area Morphine Sulfate 2 mg 02/07/20 18:14 Morphine Sulfate Inj IV PUSH Q2H PRN Pain Rated 4-6 Naloxone HCl 0.1 mg 02/07/20 18:14 Narcan IV PUSH Q2M PRN Opiate Reversal Pantoprazole Sodium 40 mg 02/10/20 12:05 02/14/20 09:19 Protonix Iv IV PUSH 40 mg Q12HR MARY Administration Sucralfate 1 gm 02/10/20 12:05 02/14/20 05:36 Carafate PO 1 gm ACHS MARY Administration Radiology Results: ITS Impressions Head CT 02/06/20 10:07 IMPRESSION: 1. Normal aging brain. No acute intracranial process. Hip/Pelvis X-Ray 02/06/20 10:20 Impression: 1: No acute fracture. 2: Mild osteoarthritis of the right hip. Abdomen X-Ray 02/07/20 13:48 IMPRESSION: 1. No free intraperitoneal gas or dilated gas-filled loops of bowel to suggest obstruction. 2. Nasogastric tube tip likely in the first portion of the duodenum. Could consider withdrawal by [address] the distal tip in the distal gastric body. Venous Doppler Study 02/11/20 11:07 IMPRESSION: 1. Patent bilateral lower extremity veins. No evidence of deep venous thrombosis. Chest X-Ray 02/12/20 07:49 IMPRESSION: 1. Stable bibasilar airspace opacity, likely atelectasis. 2. Small pleural effusions, stable. Labs Labs: Laboratory Results - last 24 hr 02/14/20 02/14/20 02/14/20 02:20 02:20 02:20 WBC RBC Hgb 9.9 L Hct 30.6 L MCV MCH MCHC RDW Plt Count MPV Immature Gran % (Auto) Neut % (Auto) Lymph % (Auto) Lane % (Auto) Eos % (Auto) Baso % (Auto) Lymph # (Auto) Lane # (Auto) Eos # (Auto) Baso # (Auto) Abs Immat Gran (auto) Absolute Neuts (auto) Absolute Nucleated RBC Nucleated RBC % Sodium Potassium Chloride Carbon
--- NOTE | 2020-02-14 12:13 | PCNFU ---
Nutrition Follow-Up Complete: Inadequate oral/enteral intake related to GI bleed as evidenced by NPO status. Goal:Patient to meet estimated nutritional needs. Progressing towards goal. We will continue current goal. Pt current nutrition is Full Liquids. Nutrition recommendation: Advance as tolerated per MD orders. Last recorded weight is 83.5 kg. Bowel Motility:+BM reported 02/12 Labs Reviewed:GFR 57,Glu 149,Na 134,Hct 28.9 Meds Noted:Vanc,Protonix,Zocyn Additional Notes: Spoke with patient today. Full liquid tray has been ordered. Speech Therapy recommend Soft and Bite Sized, Level 6. MD orders for Ensure Enlive TID for additional 350 kcals and [address] will monitor intake. Monitoring: Follow up every 3 days.
--- NOTE | 2020-02-14 12:20 | PM.PNCARD ---
Progress Note: A&P Assessment and Plan (1) Volume overload: Code(s): E87.70 - Fluid overload, unspecified Status: Acute Assessment and Plan: Will give additional IV Lasix 40 mg x 1 due to progressive shortness of breath, right basilar crackles. Mild edema on exam. Potassium chloride 40 mEq IV. Continue monitoring input and output. Bronchodilator therapy per primary service as warranted. Will need to exercise caution with any ambulation and to avoid intravascular volume depletion to minimize orthostasis and or fall risk. Monitor renal function and electrolytes. Chest x-ray in a.m. if symptoms persist. (2) Elevated troponin: Code(s): R79.89 - Other specified abnormal findings of blood chemistry Status: Acute Assessment and Plan: Likely type 2 related no clear evidence of acute coronary syndrome. (3) Hemorrhagic shock: Onset Date: ~02/07/20 Code(s): R57.8 - Other shock Status: Resolved Assessment and Plan: Resolved. Follow H&H. Stable, but anemic. (4) CAD (coronary artery disease): Code(s): I25.10 - Atherosclerotic heart disease of [place] coronary artery without angina pectoris Status: Chronic Assessment and Plan: Eventually resume cardiovascular medical therapy. Aspirin when able. Avoid NSAIDs. Statin therapy. Subjective Date/time seen: Date of service: 02/14/20 12:20 Follow-up for of a troponin, volume overload, CAD Interval history: Feels more short of breath, mild orthopnea beginning overnight into this morning. Feels okay otherwise. Denies chest pain. Hemodynamically stable, heart rate control no arrhythmias. Review of Systems Review of Systems: All systems reviewed & are unremarkable except as noted in HPI and below Constitutional: Constitutional: Reports no additional constitutional complaints, Denies headache(s) and Reports lethargy Eyes: Eyes: Reports no additional eye complaints ENT: Reports system reviewed and no additional complaints, except as documented and Denies headache(s) Cardiovascular: Cardiovascular: Reports as per HPI, Denies chest pain, Denies palpitations, Denies dyspnea and Denies dyspnea on exertion Respiratory: Respiratory: Reports no additional respiratory complaints, Reports dyspnea and Reports dyspnea on exertion Gastrointestinal: Gastrointestinal: Denies no additional gastrointestinal complaints and Denies abdominal pain Genitourinary: Genitourinary: Reports no additional male genitourinary complaints and Denies hematuria Musculoskeletal: Musculoskeletal: Reports no additional musculoskeletal complaints and Reports back pain Integumentary/Breasts: Skin/Breast: Reports system reviewed and no additional complaints, except as docu Neurologic: Reports system reviewed and no additional complaints, except as documented, Reports as per HPI, Denies confusion and Denies headache(s) Psychiatric: Psychiatric: Reports no additional psychiatric complaints, Denies anxiety and Denies confusion Endocrine: Endocrine: Denies palpitations Hematologic/Lymphatic: Hematologic/Lymphatic: Reports no additional hematologic/lymphatic complaints Allergic/Immunologic: Allergic/Immunologic: Reports no additional allergic/immunologic complaints Exam Narrative: Exam Narrative: Very pleasant gentleman lying supine in bed Const: General: comfortable and no acute distress; No confusion Orientation/consciousness: No confusion HENMT: Mouth: Yes dry mucous membranes Eyes: Sclera: sclerae normal Pupils: Equal, round and reactive pupils present Neck: Neck: no JVD Other: Neck exam limited due to C-collar Resp: Auscultation: crackles on the right at the base and wheezes expiratory wheezes Other: Inspiratory wheezes noted Cardio: Rate: regular rate Rhythm: regular rhythm Other: PMI nondisplaced no murmur no gallop GI: Auscultation: normal bowel sounds Skin: General skin exam: normal color Neuro: Genera
[2020-02-14] MEDS: FUROSEMIDE INJ 40 MG/4 ML VIAL IV PUSH (12:35)
--- NOTE | 2020-02-14 12:43 | PM.IMPN ---
Progress Note: A&P Assessment and Plan (1) Hemorrhagic shock: Onset Date: ~02/07/20 Code(s): R57.8 - Other shock Status: Resolved Assessment and Plan: Able to come off Levophed on 02/10 and CHERRY SORTER on 02/10/20. BP remaining stable. Hgb stable in the 8-9 range. WBC about the same and fever curve improving. No DVT. Consider: Fungal infection? Atelectasis? phlebitis/central line related? Continue broad spectrum abx. for now (2) Acute respiratory failure: Onset Date: ~02/07/20 Qualifiers: Respiratory failure complication: unspecified whether with hypoxia or hypercapnia Qualified Code(s): J96.00 - Acute respiratory failure, unspecified whether with hypoxia or hypercapnia Code(s): J96.00 - Acute respiratory failure, unspecified whether with hypoxia or hypercapnia Status: Acute Assessment and Plan: Patient successfully extubated 02/12. Seadation off but still with the residual effects. . Good pulmonary toilet. Faint crackle and card gave 1 time dose of Lasix (3) Gastric ulcer: Code(s): K25.9 - Gastric ulcer, unspecified as acute or chronic, without hemorrhage or perforation Status: Acute Assessment and Plan: Patient had known gastric ulcers prior to admission. Was being treated for Hpylori. Now POD #7 for gastrotomy for bleeding gastric ulcer at the cardia of the stomach and placement of G-tube. EGD on 02/09 showing two nonbleeding gastric ulcers. Continue routine post-op management. Continue Protonix and Carafate. Appreciate Gen surg and GI input.and diet today (4) Elevated LFTs: Code(s): R79.89 - Other specified abnormal findings of blood chemistry Status: Acute Assessment and Plan: AST and ALT elevated realted to above. Levels trending dwonward now. Bili and AP normal. Consider congestive pattern (that may be improving with Lasix). Continue to monitor for now. (5) C2 cervical fracture: Onset Date: Unknown Code(s): S12.100A - Unspecified displaced fracture of second cervical vertebra, initial encounter for closed fracture Status: Acute Assessment and Plan: Patient with recent hx of odontoid fracture and currently in C-collar. Continue the same. (6) Elevated troponin: Code(s): R79.89 - Other specified abnormal findings of blood chemistry Status: Acute Assessment and Plan: Trop to 0.717. EKG (02/05) showing delayed transition without much change on repeat EKG (02/06). Echo showing normal LV systolic function with EF 55-60% and no wall motion abnormalities. DD grade 1 noted. [place] to have Type II CO related to HoTN and acute blood loss. Cardiology following. (7) Syncope: Code(s): R55 - Syncope and collapse Status: Chronic Assessment and Plan: Related to acute GI bleed and hemorrhagic shock. (8) GI bleed: Onset Date: ~12/2019 Code(s): K92.2 - Gastrointestinal hemorrhage, unspecified Status: Acute Assessment and Plan: Related to gastric ulcer. (9) Anemia: Onset Date: ~01/2020 Qualifiers: Anemia type: other cause Other causes of anemia: acute posthemorrhagic Qualified Code(s): D62 - Acute posthemorrhagic anemia Code(s): D64.9 - Anemia, unspecified Status: Acute Assessment and Plan: Patient with acute blood loss anemia. As above. Hgb stable 8-9(9.3 today). Monitor HH closely. Transfuse as needed. (10) CAD (coronary artery disease): Code(s): I25.10 - Atherosclerotic heart disease of [place] coronary artery without angina pectoris Status: Chronic Assessment and Plan: Noted. ASA on hold. with good BP and higher pulse restart low dose beta alcides today (11) H. pylori infection: Code(s): A04.8 - Other specified bacterial intestinal infections Status: Acute Assessment and Plan: Patient diagnosed with Hpylori at the out
[2020-02-14 14:00] VITALS: BP 149/73; PULSE 106; RESP 16; TEMP 36.6; O2SAT 95
[2020-02-14 14:26] VITALS: PULSE 80
[2020-02-14] MEDS: METOPROLOL SUCCINATE EXT REL 25 MG TABCR PO (14:26)
--- NOTE | 2020-02-14 14:40 | PC.NURSE ---
Left message with pharmacy requesting potassium rider be sent to floor for administration.
[2020-02-14 15:27] VITALS: O2SAT 97
--- NOTE | 2020-02-14 16:02 | PCCCNOTE ---
On 02/14/20, the student, Jessica Ramsey, provided care and completed [facility] documentation on this patient. I have reviewed the student's documentation and agree with the findings.
--- NOTE | 2020-02-14 16:31 | PM.PNGS ---
Progress Note: A&P Assessment and Plan (1) GI bleed: Onset Date: ~12/2019 Code(s): K92.2 - Gastrointestinal hemorrhage, unspecified Status: Acute Assessment and Plan: This was the main reason for my involvement. Patient underwent a laparotomy, gastrotomy and over-sewing of a ulcer that was bleeding in the cardia of the stomach. Gastrostomy tube was placed and he seems to be making gradual improvement. Patient had been tolerating tube feedings at goal rate since late Thursday after the endoscopy procedure. Tube feedings of now been stopped and he is tolerating a full liquid diet. If doing well acute increased to soft diet tomorrow.. Will start a 3 day calorie count. (2) H. pylori infection: Code(s): A04.8 - Other specified bacterial intestinal infections Status: Acute Assessment and Plan: Apparently positive H pylori test at [facility] 2 weeks ago patient got 1 week of oral outpatient treatment will try to finish another week after he is more stable. Currently receiving vancomycin and Zosyn as antibiotic coverage. One were able to stop IV antibiotics we could consider 1 more week of treatment with appropriate antibiotics for this problem. (3) Acute respiratory failure: Onset Date: ~02/07/20 Qualifiers: Respiratory failure complication: unspecified whether with hypoxia or hypercapnia Qualified Code(s): J96.00 - Acute respiratory failure, unspecified whether with hypoxia or hypercapnia Code(s): J96.00 - Acute respiratory failure, unspecified whether with hypoxia or hypercapnia Status: Acute Assessment and Plan: Improving, less acidosis on the ABG. extubation as per hospitalist/ candy packer late Thursday. Patient is now able to talk and answer questions. (4) Anemia: Onset Date: ~01/2020 Qualifiers: Anemia type: other cause Other causes of anemia: acute posthemorrhagic Qualified Code(s): D62 - Acute posthemorrhagic anemia Code(s): D64.9 - Anemia, unspecified Status: Acute Assessment and Plan: hemoglobin improved. Most recently 9.1. Watching serial H&Hs. (5) Elevated troponin: Code(s): R79.89 - Other specified abnormal findings of blood chemistry Status: Acute Assessment and Plan: Most likely was related to his hemorrhagic shock. Dr. Richardson may repeat this again in the next few days. No obvious signs of heart damage at this time. (6) Gastric ulcer: Code(s): K25.9 - Gastric ulcer, unspecified as acute or chronic, without hemorrhage or perforation Status: Acute Assessment and Plan: Status post over sewing with silk suture. Continue Protonix ---- This could be changed to p.o. whenever hospitalist feels comfortable. Two other nonbleeding ulcers in the gastric pyloric area were identified on endoscopy. The seemed to be shallow at the time. (7) C2 cervical fracture: Onset Date: Unknown Code(s): S12.100A - Unspecified displaced fracture of second cervical vertebra, initial encounter for closed fracture Status: Acute Assessment and Plan: Patient is in a C-collar protecting this area which is felt to be an extubation of a previously chronic fracture or dislocation of the Ondontoid. Subjective Subjective Date/Time Seen: 02/14/20 16:31 Post Op day: POD#7 Patient reports: no new complaints and flatus Interval history: Patient denies much pain from his abdominal incision. He believes the nurses changed his lower abdominal dressing early this morning. He has been tolerating a full liquid diet. G-tube is now clamped. I will check and see if he is getting his sucralfate by mouth or through the G-tube. French catheter and central lines from the groins are now out any began working with PT today. Review of Systems Constitutional: Constitutional: Reports as per HPI and Denies headache(s) Eyes: Eyes: Denies loss of vision and [place]
[2020-02-14 22:13] VITALS: BP 149/86; PULSE 95; RESP 18; TEMP 36.6; O2SAT 97
[2020-02-14] MEDS: POTASSIUM CHLORIDE 20 MEQ TABLET 40 MEQ PO (22:41)
[2020-02-15] MEDS: SUCRALFATE 1 GM TABLET PO ×4 (06:17→21:25)
[2020-02-15 09:07] VITALS: PULSE 95
[2020-02-15] MEDS: METOPROLOL SUCCINATE EXT REL 25 MG TABCR PO (09:07)
[2020-02-15] MEDS: PANTOPRAZOLE SODIUM IV 40 MG VIAL IV PUSH ×2 (09:07→21:24)
[2020-02-15 09:45] VITALS: O2SAT 95
--- NOTE | 2020-02-15 10:33 | PCPTNOTE ---
Attempted to see pt for PT treatment. Pt headed down to ultrasound. Will try again at a later time.
--- NOTE | 2020-02-15 11:11 | PM.PNGS ---
Progress Note: A&P Assessment and Plan (1) Gastric ulcer: Code(s): K25.9 - Gastric ulcer, unspecified as acute or chronic, without hemorrhage or perforation Status: Acute Assessment and Plan: Status post over sewing with silk suture. Continue Protonix and Sucralfate ---- This could be changed to p.o. whenever hospitalist feels comfortable. Two other nonbleeding ulcers in the gastric pyloric area were identified on endoscopy. Continues to improve and now tolerating a soft diet. Continue packing the midline abdominal incision with iodoform gauze once daily. Preliminary results of wound culture showed growth of yeast, will add oral Diflucan daily. Encouraged OOB/IS. (2) GI bleed: Onset Date: ~12/2019 Code(s): K92.2 - Gastrointestinal hemorrhage, unspecified Status: Acute Assessment and Plan: Patient underwent a laparotomy, gastrotomy and over-sewing of a gastric ulcer that was bleeding in the cardia of the stomach. Gastrostomy tube was placed and he seems to be making gradual improvement. No longer on tube feedings and tolerating a soft diet. H/H remains stable. (3) H. pylori infection: Code(s): A04.8 - Other specified bacterial intestinal infections Status: Acute (4) Acute respiratory failure: Onset Date: ~02/07/20 Qualifiers: Respiratory failure complication: unspecified whether with hypoxia or hypercapnia Qualified Code(s): J96.00 - Acute respiratory failure, unspecified whether with hypoxia or hypercapnia Code(s): J96.00 - Acute respiratory failure, unspecified whether with hypoxia or hypercapnia Status: Acute Assessment and Plan: Improving. Extubated per [place] late Thursday. Patient continues to do well and stable on room air. (5) Anemia: Onset Date: ~01/2020 Qualifiers: Anemia type: other cause Other causes of anemia: acute posthemorrhagic Qualified Code(s): D62 - Acute posthemorrhagic anemia Code(s): D64.9 - Anemia, unspecified Status: Acute Assessment and Plan: Stable today. Continue monitoring H/H. (6) Elevated troponin: Code(s): R79.89 - Other specified abnormal findings of blood chemistry Status: Acute Assessment and Plan: Most likely was related to his hemorrhagic shock. No clear evidence of acute coronary syndrome. (7) C2 cervical fracture: Onset Date: Unknown Code(s): S12.100A - Unspecified displaced fracture of second cervical vertebra, initial encounter for closed fracture Status: Acute Assessment and Plan: Patient is in a C-collar protecting this area which is felt to be an extubation of a previously chronic fracture or dislocation of the Ondontoid. Additional Plan Discussed patient's plan of care and case with Dr. Butterfield. Dr. Butterfield will plan on evaluating the wound independently as well to assess the tracking. Subjective Subjective Date/Time Seen: 02/15/20 10:00 Post Op day: 8 Patient reports: no new complaints, pain is less, tolerating a regular diet, flatus and bowel movement (loose stools) Interval history: Patient seen and examined sitting in the chair this morning. Reportedly has already eaten breakfast on the soft diet and tolerated this well. He is still having some upper abdominal pain with eating but states it is the same as he has been experiencing. No nausea, vomiting, or bloating. Apparently he began to have some unilateral weakness yesterday, per the nurse. The patient denies any new onset weakness or changes in speech/swallowing. He seems somewhat confused this morning when asking him about recent events since hospitalized. Review of Systems Review of Systems: All systems reviewed & are unremarkable except as noted in HPI and below Exam Const: General: comfortable and no acute distress Orientation/consciousness: patient oriented x3 GI: Inspection: non-distended GI Palp: Yes Soft to palpation, Yes Tenderness to
--- NOTE | 2020-02-15 11:35 | PC.NURSE ---
MD sutherlanded Lisette bundy to come off for ultrasound of carotids.
--- NOTE | 2020-02-15 12:15 | WPDGIPROGNO ---
Progress Note: A&P Additional Plan Patient alert and comfortable this morning. He remains at bedrest. States he has begun to past soft stools. He denies any blood in his stools at this time. He denies undergoing abdominal pain. Physical exam reveals patient be alert. Vital signs are stable. Cervical collar in place. Patient is anicteric. Lungs are clear to auscultation and percussion. Heart is without murmur. Abdomen bowel sounds are present soft mild incisional tenderness. G-tube remains in place. Impression 1. Gastric ulcer. Status post bleeding and over-sewing. Plan is to continue PPI therapy supplement this with Carafate. We may discontinue Carafate as patient's diet improves. Continue monitor hemoglobin. Follow-up EGD in 2 months suggested. 2. Gastrostomy tube. This was placed at time of surgical therapy. Currently used for supplemental nutrition. Plan is to advance diet. When he is tolerating diet G-tube will no longer be required for nutritional support. 3. Respiratory failure. Patient has improved dramatically. No longer on ventilator. Breathing well on room air. 4. C-spine fracture. Patient remains in cervical collar. Probably need to consider restarting therapy. 5. Elevated LFTs. Related to shock liver . These are resolving well. Plan is to continue monitor LFTs until they are totally resolved. Subjective Date/time seen: 02/15/20 12:15 Objective Data Vital Signs Vital Signs: Vital Signs - 24 hr 02/14/20 14:00 02/14/20 14:26 02/14/20 15:27 Temperature 36.6 C Pulse Rate 106 H 80 Respiratory Rate 16 Blood Pressure 149/73 H Pulse Oximetry 95 97 02/14/20 22:13 02/15/20 09:07 02/15/20 09:45 Temperature 36.6 C Pulse Rate 95 95 Respiratory Rate 18 Blood Pressure 149/86 H Pulse Oximetry 97 95 Intake/Output Intake/Output: Intake & Output 02/12/20 02/13/20 02/14/20 02/15/20 23:59 23:59 23:59 23:59 Intake Total 4834 132 5555 720 Output Total 4125 7002 3755 900 Balance -2587 -2180 -795 -180 Meds/Results Medications: Active Medications Generic Name Dose Route Start Last Admin Trade Name Freq PRN Reason Stop Dose Admin Piperacillin Sod/Tazobactam Sod 2.25 gm in 50 mls @ 100 mls/hr 02/07/20 12:20 02/15/20 12:02 Zosyn 2.25 Gm/D5w 50 Ml IVPB 100 mls/hr Q6HR MARY Administration Vancomycin HCl 1,250 mg in 250 mls @ 200 mls/hr 02/11/20 21:00 02/14/20 23:45 Vancomycin 1,250 Mg/D5w 250 Ml IVPB Infused Q18H MARY Infusion Lidocaine HCl 0.3 ml 02/07/20 13:38 Xylocaine 2% Local Inj INTRADERM ONCE PRN to numb area Metoprolol Succinate 25 mg 02/14/20 12:40 02/15/20 09:07 Toprol Xl PO 25 mg QAM MARY Administration Morphine Sulfate 2 mg 02/07/20 18:14 Morphine Sulfate Inj IV PUSH Q2H PRN Pain Rated 4-6 Naloxone HCl 0.1 mg 02/07/20 18:14 Narcan IV PUSH Q2M PRN Opiate Reversal Pantoprazole Sodium 40 mg 02/10/20 12:05 02/15/20 09:07 Protonix Iv IV PUSH 40 mg Q12HR MARY Administration Sucralfate 1 gm 02/10/20 12:05 02/15/20 12:02 Carafate PO 1 gm ACHS MARY Administration Radiology Results: ITS Impressions Hip/Pelvis X-Ray 02/06/20 10:20 Impression: 1: No acute fracture. 2: Mild osteoarthritis of the right hip. Abdomen X-Ray 02/07/20 13:48 IMPRESSION: 1. No free intraperitoneal gas or dilated gas-filled loops of bowel to suggest obstruction. 2. Nasogastric tube tip likely in the first portion of the duodenum. Could consider withdrawal by [address] the distal tip in the distal gastric body. Venous Doppler Study 02/11/20 11:07 IMPRESSION: 1. Patent bilateral lower extremity veins. No evidence of deep venous thrombosis. Chest X-Ray 02/12/20 07:49 IMPRESSION: 1. Stable bibasilar airspace opacity, likely atelectasis. 2. Small pleural effusions, stable. Head CT 02/15/20 07:27 IMPRESSION: 1. New
--- NOTE | 2020-02-15 13:20 | PCDIET ---
Dietitian consult for Calorie Count. No Dinner ticket for 02/13. Breakfast today 02/14 approx. 420 kcals. Patient had Bedside Swallow Eval today advancing to Regular consistencies with thin liquids. Ensure Enlive remains on trays TID providing an additional 350 kcals and 20 gms protein per [address] will continue to monitor daily.
[2020-02-15 14:00] VITALS: BP 128/79; PULSE 92; RESP 16; TEMP 36.7; O2SAT 97
--- NOTE | 2020-02-15 14:05 | PM.PNCARD ---
Progress Note: A&P Assessment and Plan (1) Volume overload: Qualifiers: Hypervolemia type: other Qualified Code(s): E87.79 - Other fluid overload Code(s): E87.70 - Fluid overload, unspecified Status: Acute Assessment and Plan: Related to blood products and IV fluids Laying flat in bed on room air. Denies shortness of breath with exertional activities, orthopnea or PND. Lungs are clear to auscultation. (2) Elevated troponin: Code(s): R79.89 - Other specified abnormal findings of blood chemistry Status: Acute Assessment and Plan: Likely type 2 related no clear evidence of acute coronary syndrome (3) Hemorrhagic shock: Onset Date: ~02/07/20 Code(s): R57.8 - Other shock Status: Resolved Assessment and Plan: Resolved. Follow H&H. Stable, but anemic (4) CAD (coronary artery disease): Qualifiers: Coronary Disease-Associated Artery/Lesion type: [place] artery [place] vs. transplanted heart: [place] heart Associated angina: without angina Qualified Code(s): I25.10 - Atherosclerotic heart disease of [place] coronary artery without angina pectoris Code(s): I25.10 - Atherosclerotic heart disease of [place] coronary artery without angina pectoris Status: Chronic Assessment and Plan: Beta-alcides has been resumed. Aspirin when able. Avoid NSAIDs. Statin therapy Additional Plan No further cardiac recommendations. He follows with a doctor of audiology at [facility] We will sign off. Please do not hesitate to call if we can be of further assistance. Plan discussed Dr. Valerio [id number] 02/15/2020 Time Spent With Patient Time with patient: less than 15 minutes Subjective Date/time seen: 02/15/20 14:05 Interval history: Follow-up for: Syncope related to orthostatic hypotension, volume overload, history of coronary artery disease Date of service: 02/15/2020 Subjective: Laying relatively flat in bed denying shortness of breath or chest discomfort. No lightheadedness when ambulating to the bathroom. On room air. Only difficulty with sleeping is due to his neck brace. Review of Systems Constitutional: Constitutional: Reports difficulty sleeping (Related a neck brace) and Denies headache(s) Eyes: Eyes: Denies blind spots and Denies blurry vision ENT: Reports Normal hearing present and Denies headache(s) Cardiovascular: Cardiovascular: Denies chest pain, Denies palpitations, Reports dyspnea and Denies dyspnea on exertion Respiratory: Respiratory: Denies dyspnea and Denies dyspnea on exertion Gastrointestinal: Gastrointestinal: Denies abdominal pain, Denies nausea and Denies vomiting Genitourinary: Genitourinary: Denies hematuria Musculoskeletal: Musculoskeletal: Reports back pain Integumentary/Breasts: Skin/Breast: Denies erythema and Denies rash Neurologic: Denies confusion and Denies headache(s) Psychiatric: Psychiatric: Denies anxiety and Denies confusion Endocrine: Endocrine: Denies palpitations Hematologic/Lymphatic: Hematologic/Lymphatic: Denies easy bruising Allergic/Immunologic: Allergic/Immunologic: Denies lip swelling Exam Narrative: Exam Narrative: Very pleasant gentleman lying supine in bed Const: General: cooperative, comfortable and no acute distress Orientation/consciousness: patient oriented x3 HENMT: Head: normal to inspection Mouth: Yes moist mucous membranes Eyes: Sclera: sclerae normal Pupils: Equal, round and reactive pupils present Neck: Neck: other (Neck brace) Resp: Effort & Inspection: normal respiratory effort and able to speak in complete sentences Auscultation: no rales and no wheezes Cardio: Rate: regular rate Rhythm: regular rhythm Peripheral pulses: Peripheral pulses 2+ throughout GI: GI Palp: Yes Soft to palpatio
--- NOTE | 2020-02-15 15:32 | PM.IMPN ---
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 BP remaining stable. Hgb stable in the 8-9 range. WBC trending down and afebrile. No DVT. Continue broad spectrum abx. for now (2) Acute respiratory failure: Onset Date: ~02/07/20 Qualifiers: Respiratory failure complication: unspecified whether with hypoxia or hypercapnia Qualified Code(s): J96.00 - Acute respiratory failure, unspecified whether with hypoxia or hypercapnia Code(s): J96.00 - Acute respiratory failure, unspecified whether with hypoxia or hypercapnia Status: Acute Assessment and Plan: Patient successfully extubated 02/12. . . Good pulmonary toilet. (3) Gastric ulcer: Code(s): K25.9 - Gastric ulcer, unspecified as acute or chronic, without hemorrhage or perforation Status: Acute Assessment and Plan: Patient had known gastric ulcers prior to admission. Was being treated for Hpylori. Now POD #8 for gastrotomy for bleeding gastric ulcer at the cardia of the stomach and placement of G-tube. EGD on 02/09 showing two nonbleeding gastric ulcers. Continue routine post-op management. Continue Protonix and Carafate. Appreciate Gen surg and GI input.and regular diet today (4) Elevated LFTs: Code(s): R79.89 - Other specified abnormal findings of blood chemistry Status: Acute Assessment and Plan: AST and ALT elevated realted to above. Levels trending dwonward now. Bili and AP normal. Probable shock liver. Continue to monitor for now. (5) C2 cervical fracture: Onset Date: Unknown Code(s): S12.100A - Unspecified displaced fracture of second cervical vertebra, initial encounter for closed fracture Status: Acute Assessment and Plan: Patient with recent hx of odontoid fracture and currently in C-collar. Continue the same. (6) Elevated troponin: Code(s): R79.89 - Other specified abnormal findings of blood chemistry Status: Acute Assessment and Plan: Trop to 0.717. EKG (02/05) showing delayed transition without much change on repeat EKG (02/06). Echo showing normal LV systolic function with EF 55-60% and no wall motion abnormalities. DD grade 1 noted. Acme to have Type II ID related to HoTN and acute blood loss. Cardiology following. (7) Syncope: Code(s): R55 - Syncope and collapse Status: Chronic Assessment and Plan: Related to acute GI bleed and hemorrhagic shock. (8) GI bleed: Onset Date: ~12/2019 Code(s): K92.2 - Gastrointestinal hemorrhage, unspecified Status: Acute Assessment and Plan: Related to gastric ulcer. (9) Anemia: Onset Date: ~01/2020 Qualifiers: Anemia type: other cause Other causes of anemia: acute posthemorrhagic Qualified Code(s): D62 - Acute posthemorrhagic anemia Code(s): D64.9 - Anemia, unspecified Status: Acute Assessment and Plan: Patient with acute blood loss anemia. As above. Hgb stable 8-9. Monitor HH closely. Transfuse as needed. (10) CAD (coronary artery disease): Qualifiers: Associated angina: without angina Coronary Disease-Associated Artery/Lesion type: [place] artery [place] vs. transplanted heart: [place] heart Qualified Code(s): I25.10 - Atherosclerotic heart disease of [place] coronary artery without angina pectoris Code(s): I25.10 - Atherosclerotic heart disease of [place] coronary artery without angina pectoris Status: Chronic Assessment and Plan: Noted. ASA on hold. with good BP and higher pulse restarted low dose beta alcides 02/13 (11) H. pylori infection: Code(s): A04.8 - Other specified bacterial intestinal infections Status: Acute Assessment and
[2020-02-15] MEDS: FLUCONAZOLE 100 MG TABLET PO (16:36)
[2020-02-15 22:00] VITALS: BP 140/77; PULSE 90; RESP 20; TEMP 36.8; O2SAT 97
[2020-02-16] VITALS (13 sets, daily range): BP systolic 68–95; BP diastolic 45–72; PULSE 105–133; RESP 15–25; TEMP 35.8–36.6; O2SAT 90–100
--- NOTE | 2020-02-16 00:37 | PC.NURSE ---
0030 PT WAS UP ON BEDSIDE COMMODE BECAME UNRESPONSIVE WITH BLOWING RESPIRATIONS, BACK TO BED. PT AWAKE AND ALERT AND ORIENTED. BP 83/45, PULSE 130'S, RESP 20 G-TUBE SITE WITH MAX BLOODY DRAINAGE. RAPID RESPONSE CALLED.
--- NOTE | 2020-02-16 00:56 | PC.NURSE ---
TRANSFERRED PT TO ICU 6, REPORT GIVEN TO EVANGELINA SORENSON, NOTIFIED AND DR BATES NOTIFIED.
[2020-02-16 01:06] LABS: Basophils Absolute Auto 0.1 K/mm3 (0.0-0.1); Basophils Percent Auto 0.7 % (0.2-1.2); Eosinophils Absolute Auto 0.8 K/mm3 (0-0.3); Eosinophils Percent Auto 5.4 % (0-4.4); Hematocrit 24.8 % (42.0-52.0); Hemoglobin 7.7 g/dL (14.0-18.0); Immature Granulocyte Absolute 0.45 K/mm3 (0.00-0.031); Immature Granulocyte Percent A 3.1 % (0-0.5); Lymphocytes Absolute Auto 1.41 K/mm3 (0.9-3.2); Lymphocytes Percent Auto 9.6 % (18.3-44.2); Mean Corpuscular Hemoglobin 29.1 pg (26-34); Mean Corpuscular Volume 93.6 fl (80-100); Mean Platelet Volume 9.9 fl (7.4-10.4); Monocytes Absolute Auto 1.5 K/mm3 (0.1-0.6); Monocytes Percent Auto 10.3 % (2.6-8.5); Neutrophils Absolute Auto 10.5 K/mm3 (1.3-6.7); Neutrophils Percent Auto 70.9 % (45.5-73.1); Platelet Count Result 494 k/mm3 (150-375); Red Blood Count 2.65 M/mm3 (4.6-6.20); Red Cell Distribution Width 14.3 % (11.5-14.5); White Blood Count 14.7 K/mm3 (4.5-10.0)
[2020-02-16 01:11] LABS: Glucose Point of Care 199 (65-105)
[2020-02-16 01:12] LABS: INR 1.3; Magnesium 1.9 mg/dL (1.6-2.3); Prothrombin Time 15.5 Seconds (11.1-14.7)
[2020-02-16 01:13] LABS: Fibrinogen 455 mg/dl (215-510); Partial Thromboplastin Time 25.8 SECONDS (22.3-36.8)
[2020-02-16 01:14] LABS: Alanine Aminotransferase 53 U/L (4-50); Albumin Level 2.8 g/dL (3.5-5.1); Alkaline Phosphatase 55 U/L (38-126); Aspartate Amino Transferase 27 U/L (17-59); Bilirubin,Total 0.2 mg/dL (0.2-1.3); Blood Urea Nitrogen 17 mg/dL (9-20); Calcium 8.2 mg/dL (8.4-10.2); Carbon Dioxide 21 mmol/L (22-30); Chloride 103 mmol/L (98-107); Estimated CRCL calculation 39 ml/min; Estimated Glomerular Filt Rate 42; Glucose 216 mg/dL (75-110); Potassium 3.8 mmol/L (3.4-5.0); Sodium 135 mmol/L (137-145)
[2020-02-16] MEDS: SODIUM CHLORIDE 0.9% IV 1,000 ML 999 ML IV CONT ×3 (01:20→04:19)
[2020-02-16 01:31] LABS: D Dimer 15.02 ug/mL (<0.48)
[2020-02-16] MEDS: NOREPINEPHRINE 8 MG/D5W 250 ML 8 MG/250 ML BAG 18.8 MG IV CONT (03:24)
[2020-02-16] MEDS: SODIUM CHLORIDE 0.9% IV 250 ML 30 ML IV CONT (03:27)
--- NOTE | 2020-02-16 03:42 | PM.PNGS ---
Progress Note: A&P Assessment and Plan (1) GI bleed: Onset Date: ~12/2019 Code(s): K92.2 - Gastrointestinal hemorrhage, unspecified Status: Acute Assessment and Plan: Recurrent upper GI bleeding after laparotomy and over-sewing of gastric ulcers in the cardia, about 2 cm from the GE junction. Patient has hemorrhagic shock as well. He is being resuscitated and transfused. NG tube is in the stomach and a little is coming out right now. The plain films suggest the stomach is quite dilated as the NG tube passes far down in the abdominal silhouette. We will lavage the stomach. I spoke with Dr. Butterfield on the phone. I also spoke with Dr. Alcantar. We may proceed with upper endoscopy this morning to better evaluate the source of the bleeding. Patient had an upper endoscopy just 6 days ago an all looked good although there were some antral gastric ulcers as well. I spoke also with the covering hospitalist, Dr. Heredia. She had just spoken with , traffic officer who had taken care of the patient with his previous episode of hemorrhagic shock prior to and after his surgery [address] Richardson favors transfer to a tertiary care center. I agree with this as it would seem likely the bleeding is from the gastric cardia. Further surgery for this would require proximal gastric resection or even total gastrectomy. This is an operation that Dr. Butterfield and I both very rarely have ever performed and would best be done at a tertiary care center. For now, we will continue to lavage the stomach, transfused 2 more units of packed cells, and give a 1000 cc more of crystalloid. French catheter will be placed. Critical care management will be continued. Levophed has been started. (2) Hemorrhagic shock: Onset Date: ~02/07/20 Code(s): R57.8 - Other shock Status: Acute Assessment and Plan: Due to recurrent GI bleeding. Transfused 2 additional units of blood and 1000 cc of crystalloid. Continue Levophed. Continue critical care management. (3) CVA (cerebral vascular accident): Code(s): I63.9 - Cerebral infarction, unspecified Status: Acute Assessment and Plan: Patient suffered CVA just 2 days ago. This makes recurrent surgery a very high risk. (4) Anemia: Onset Date: ~01/2020 Qualifiers: Anemia type: other cause Other causes of anemia: acute posthemorrhagic Qualified Code(s): D62 - Acute posthemorrhagic anemia Code(s): D64.9 - Anemia, unspecified Status: Acute Assessment and Plan: Hemoglobin lower than it was 2 days ago almost certainly due to recurrent GI bleeding. Being transfused. Continue to monitor. (5) CAD (coronary artery disease): Qualifiers: Coronary Disease-Associated Artery/Lesion type: [place] artery [place] vs. transplanted heart: [place] heart Associated angina: without angina Qualified Code(s): I25.10 - Atherosclerotic heart disease of [place] coronary artery without angina pectoris Code(s): I25.10 - Atherosclerotic heart disease of [place] coronary artery without angina pectoris Status: Chronic (6) Chronic renal failure, stage 3 (moderate): Code(s): N18.3 - Chronic kidney disease, stage 3 (moderate) Status: Chronic Assessment and Plan: Will place French catheter. Subjective Subjective Date/Time Seen: 02/16/20 03:42 Patient experienced some additional bright red upper GI bleeding early this morning. This was evidenced by vomiting of about 100-150 cc of bright red blood. There was also some blood coming from and around his gastrostomy tube. I was called at approximately 1:30 a.m. this morning and came in to see the patient. He has been transferred to the intensive care unit. He has received 2 units of packed cells and also to L of crystalloid. His blood pressure remains around 70s systolic. When I arrived a femoral vein central line was being placed by the hospitalist. An NG tube wa
--- NOTE | 2020-02-16 04:05 | PM.TDS ---
Transfer Discharge Sum: Prov Provider Date of admission: 02/07/20 10:38 Primary care physician: FINE [employer] MODEL PHYSICIAN Admitting clinician: Margarita Rivera MD Consults: 02/06/20 Consult to Physician Routine Comment: ELVIRA SPOKE WITH DR. RICHARDSON Consulting Provider: Rick Richardson teacher physically impaired/MD group to consult: Dr. Richardson Reason for consultation: GI bleed Has provider been notified: Yes Consult to Physician Routine Comment: MESSAGE LEFT WITH EXCHANGE Consulting Provider: Kaveh Zuniga teacher physically impaired/MD group to consult: gi dr zuniga Reason for consultation: dark stools and hematemesis Has provider been notified: Yes 02/06/20 11:15 Consult to Physician Routine Comment: Consulting Provider: Vipul Pitts Reason for consultation: syncope Has provider been notified: Yes 02/07/20 10:00 Consult to Physician Routine Comment: ALREADY CONSULTED YESTERDAY BY ER Consulting Provider: Vipul Pitts teacher physically impaired/MD group to consult: CARDIOLOGY Reason for consultation: shock, NSTEMI Has provider been notified: Yes 02/15/20 Consult to Physician Routine Comment: 02/14 DR. LUNDBERG NOTIFIED @ 0935 ([facility]) Consulting Provider: Huey Lundberg teacher physically impaired/MD group to consult: Dr Lundberg Reason for consultation: CVA Has provider been notified: Yes DS: Admitting Diagnosis Admitting Diagnosis Admitting Diagnosis: Syncope and collapse DS: Discharge Diagnosis Discharge Diagnosis (1) Hemorrhagic shock: Onset Date: ~02/07/20 Code(s): R57.8 - Other shock Status: Acute Assessment and Plan: Patient was admitted on 02/07/2020 and had EGD at the time which demonstrated a large amount of blood clot in the stomach and gastroenterology felt a could not perform any intervention due to the amount of bleeding. Subsequently general surgery was consulted in the patient underwent gastrotomy. At the upper into the stomach near the cardia there was an ulcer with some clot that was 2-3 cm distal to the gastroesophageal junction. The ulcer was sutured with 3-0 silk which slowed the bleeding. The surgeon used to 4 x 4 told pressure after 2 minutes the ulcer was still noted to have a small amount of bleeding. So 2 0 silk was used to place a figure 8 suture and was tied down which seem to stop the bleeding. Thrombin foam was then used over a remaining area of gastritis and over the as silk sutures. Subsequently a gastrotomy tube was placed toward the greater curvature of the stomach. The patient remain on Levophed until 02/12/2020. The initial day of hospitalization the patient received 11 units of packed red blood cells 2 units of FFP and 1 unit of cryoprecipitate. He had an additional unit of blood on the . He underwent repeat EGD on 02/10/2020 which demonstrated 2 nonbleeding gastric ulcers in the antrum of the stomach. The patient remained stable until just after midnight on the 15 of February. At that time the patient was on the bedside commode from his gastrotomy tube site and from his laparotomy incision. Evidently the patient has a small area of wound dehiscence in that area for which he has been treated with Zosyn to low-grade fevers. The patient's last fever was on 02/12/2020. The patient's blood pressures at the time of this hemorrhage were in the 60s and 70s systolic. The patient was transferred emergently back to the ICU. 2 units of type nonspecific blood were given as the patient remained hypotensive despite fluid bolus. With infusion of the 1st unit of blood and the initiation of a 2nd L of fluid the patient remained hypotensive. A left femoral CVC was placed and the patient was initiated on Levophed. The general surgeon had been contacted by nursing staff and arrived to evaluate the patient. He felt that there were no surgical interventions that we could perform at this facility and agreed with the flight crew scheduler recommendation to transfer the patient to tertiary care and an additional 3 uni
[2020-02-16] MEDS: ONDANSETRON INJ 4 MG/2 ML VIAL (04:21)
[2020-02-16] MEDS: PROMETHAZINE HCL 25 MG/ML AMPUL IV PUSH (04:40)
[2020-02-16 04:55] LABS: Hematocrit 31.8 % (42.0-52.0); Hemoglobin 10.3 g/dL (14.0-18.0); Mean Corpuscular HGB Conc 32.4 g/dl (32-36); Mean Corpuscular Hemoglobin 29.4 pg (26-34); Mean Corpuscular Volume 90.9 fl (80-100); Red Cell Distribution Width 15.1 % (11.5-14.5)
[2020-02-16 05:09] LABS: Alanine Aminotransferase 41 U/L (4-50); Albumin Level 2.2 g/dL (3.5-5.1); Alkaline Phosphatase 44 U/L (38-126); Aspartate Amino Transferase 25 U/L (17-59); Bilirubin,Total 0.4 mg/dL (0.2-1.3); Blood Urea Nitrogen 20 mg/dL (9-20); Calcium 6.9 mg/dL (8.4-10.2); Carbon Dioxide 22 mmol/L (22-30); Chloride 107 mmol/L (98-107); Estimated CRCL calculation 35 ml/min; Estimated Glomerular Filt Rate 37; Glucose 176 mg/dL (75-110); Potassium 4.9 mmol/L (3.4-5.0); Sodium 135 mmol/L (137-145)
[2020-02-16 05:14] LABS: Band Neutrophils Percent 4 % (0-6); Lymphocytes Absolute Manual 1.35 K/mm3 (1.1-4.5); Metamyelocytes Percent 1 %; Monocytes Absolute Manual 1.62 K/mm3 (0.1-0.90); Monocytes Percent Manual 6 % (3-9); Neutrophils Absolute Manual 23.76 K/mm3 (1.3-6.7); Neutrophils Percent Manual 84 % (46-73); Ovalocytes 1+ (NORMAL); Platelet Clumps Present; Platelet Estimate Adequate (Adequate); Total Cells Counted 100
--- NOTE | 2020-02-16 05:42 | WPDPROCEDUR ---
Procedures Central Line Placement Left Femoral: Central Line Date: 02/16/20 Central Line Time: 02:40 Discussed w/ the patient/family/POA,the placement of a central venous catheter, including its clinical necessity/indication & associated potential risks, benifits and alternatives.: Yes The patient/family/POA understand(s) and acknowledge(s) the need to proceed with central venous catheter insertion as an important element of the patient's clinical management.: Yes Time Out Performed: Yes Patient Position: trendelenburg Patient placed on monitor/pulse ox: Yes Provider Prep: mask, sterile gown, sterile gloves, Max. sterile barrier precautions, cap and hand hygiene Central line prep: Chlorhexidine scrub Local anesthesia used: lidocaine 1% Amount of anesthesia used (ml): 5 Ultrasound used for placement: Yes Central line lumen inserted: triple Macedonian: 7 Length (cm): 20 Depth of Insertion (cm): 20 Post procedure: sutured in place, good blood return, all ports aspirated, flushed, capped, tegaderm, hemostatic disc and aseptic technique maintained throughout procedure Patient tolerated procedure: well Complications: none Arterial Line Size (Gauge): 16
--- NOTE | 2020-02-16 07:12 | PC.NURSE ---
This patient, Johnson Hall, was received from [facility] on 02/16/20 at 0145. Personal belongings list checked and signed. Patient/family oriented to unit policies and routines
--- NOTE | 2020-02-16 07:12 | PC.NURSE ---
Patient departed via [facility] en rout to [facility] at 0546 on 02/16/2020 for higher level of care and surgical intervention. Consent for transfer signed. Spouse present at time of transfer. Patient BP noted to be 102/54 on [facility] NiBP monitor. Patient remains oriented x4 yet drowsy. No nusea noted at this time. Report given to Joe, [facility] and [facility] ICU accepting RN. Patient to go to 18ICU room 10. Cryoprecpitate and plasma infusing at time of transfer.
--- NOTE | 2020-03-09 12:47 | WPDNEURCNPN ---
Consult date: 03/29/20 Time Seen: 12:47 HPI: Johnson Hall is a 59 year old male [facility] Past Medical History Medical History Acute GI bleeding CAD (coronary artery disease) Chronic GERD Chronic renal failure, stage 3 (moderate) H. pylori infection Hypertension Peptic ulcer Syncope Syncope and collapse Surgical History Surgical History History of circumcision History of esophagogastroduodenoscopy (EGD) Cauterize 3 ulcers about a week and half History of oral surgery Hx of cardiac catheterization Angioplasty Family History Family History Mother Diabetes mellitus Father Hyperlipidemia Sibling Acute myocardial infarction Social History Social History Social History: The patient states that he is a nondrinker. And that his is his durable power signal worker for healthcare. The patient is a full code. The patient smokes 1 pack a cigarettes a day for 42 years. 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 Smoking packs per day: 1 Smoking cigarettes per day: 20.0 Years smoked: 42 Smoking pack-years: 42.00 Smoking status: Current every day smoker Tobacco type: cigarettes Alcohol intake: never Substance use: never Substance use type: does not use Spiritual care concerns: No Meds Home Medications and Allergies Home Medications Medication Instructions Recorded Confirmed Type aspirin [Ainsley Chewable Aspirin] 81 mg PO DAILY 01/25/20 02/06/20 History hydrochlorothiazide 25 mg PO DAILY 01/25/20 02/06/20 History lisinopril [Prinivil] 20 mg PO DAILY 01/25/20 02/06/20 History pantoprazole 40 mg PO BID 01/25/20 02/06/20 History piroxicam 20 mg PO DAILY 01/25/20 02/06/20 History amoxicillin 500 mg PO BID 02/06/20 02/06/20 History clarithromycin 500 mg PO BID 02/06/20 02/06/20 History ibuprofen [Advil] 400 mg PO Q6H PRN 02/06/20 02/06/20 History metoprolol succinate 25 mg PO DAILY 02/06/20 02/06/20 History metronidazole 500 mg PO BID 02/06/20 02/06/20 History multivit with min-folic acid 200 mcg PO DAILY 02/06/20 02/06/20 History [Adult Multivitamin Gummies] Allergies Allergy/AdvReac Type Severity Reaction Status Date / Time No Known Allergies Allergy Verified 02/06/20 12:17 Results Labs CBC & Chem 7: 02/16/20 04:40 02/16/20 04:40 Quality VTE Prophylaxis VTE prophylaxis: mechanical ordered
--- NOTE | 2020-03-09 12:48 | WPDNEURCNPN ---
Consult date: 03/09/20 HPI: Johnson Hall is a 59 year old male not seen prior to transfer [facility] Past Medical History Medical History Acute GI bleeding CAD (coronary artery disease) Chronic GERD Chronic renal failure, stage 3 (moderate) H. pylori infection Hypertension Peptic ulcer Syncope Syncope and collapse Surgical History Surgical History History of circumcision History of esophagogastroduodenoscopy (EGD) Cauterize 3 ulcers about a week and half History of oral surgery Hx of cardiac catheterization Angioplasty Family History Family History Mother Diabetes mellitus Father Hyperlipidemia Sibling Acute myocardial infarction Social History Social History Social History: The patient states that he is a nondrinker. And that his is his durable power case manager specialist for healthcare. The patient is a full code. The patient smokes 1 pack a cigarettes a day for 42 years. 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 Smoking packs per day: 1 Smoking cigarettes per day: 20.0 Years smoked: 42 Smoking pack-years: 42.00 Smoking status: Current every day smoker Tobacco type: cigarettes Alcohol intake: never Substance use: never Substance use type: does not use Spiritual care concerns: No Meds Home Medications and Allergies Home Medications Medication Instructions Recorded Confirmed Type aspirin [Ainsley Chewable Aspirin] 81 mg PO DAILY 01/25/20 02/06/20 History hydrochlorothiazide 25 mg PO DAILY 01/25/20 02/06/20 History lisinopril [Prinivil] 20 mg PO DAILY 01/25/20 02/06/20 History pantoprazole 40 mg PO BID 01/25/20 02/06/20 History piroxicam 20 mg PO DAILY 01/25/20 02/06/20 History amoxicillin 500 mg PO BID 02/06/20 02/06/20 History clarithromycin 500 mg PO BID 02/06/20 02/06/20 History ibuprofen [Advil] 400 mg PO Q6H PRN 02/06/20 02/06/20 History metoprolol succinate 25 mg PO DAILY 02/06/20 02/06/20 History metronidazole 500 mg PO BID 02/06/20 02/06/20 History multivit with min-folic acid 200 mcg PO DAILY 02/06/20 02/06/20 History [Adult Multivitamin Gummies] Allergies Allergy/AdvReac Type Severity Reaction Status Date / Time No Known Allergies Allergy Verified 02/06/20 12:17 Results Labs CBC & Chem 7: 02/16/20 04:40 02/16/20 04:40 Quality VTE Prophylaxis VTE prophylaxis: mechanical ordered
--- NOTE | 2020-03-09 12:55 | WPDNEUROPN ---
Objective Data Meds/Results Radiology Results: ITS Impressions Hip/Pelvis X-Ray 02/06/20 10:20 Impression: 1: No acute fracture. 2: Mild osteoarthritis of the right hip. Venous Doppler Study 02/11/20 11:07 IMPRESSION: 1. Patent bilateral lower extremity veins. No evidence of deep venous thrombosis. Chest X-Ray 02/12/20 07:49 IMPRESSION: 1. Stable bibasilar airspace opacity, likely atelectasis. 2. Small pleural effusions, stable. Head CT 02/15/20 07:27 IMPRESSION: 1. New areas of low-attenuation in the right frontal lobe and left frontoparietal region, consistent with infarcts. Carotid Doppler Study 02/15/20 11:09 IMPRESSION: 1. <50% stenosis in the right internal carotid artery. 2. <50% stenosis in the left internal carotid artery. Abdomen X-Ray 02/16/20 06:43 IMPRESSION: 1. Nasogastric tube tip in the stomach. Quality VTE Prophylaxis VTE prophylaxis: mechanical ordered
== END 2020-02-16 05:45 | disposition short-term general hospital (02) | DRG 326 ==
LOC: ANHED 11:16 → ANHIMU 11:44 → ANHICU 19:16 → ANH2MED 02-14 10:31 → ANHICU 02-17 12:31
PROVIDERS: Family Medicine; Internal Medicine; Internal Medicine Gastroenterology; Nurse Practitioner; Surgery; Admitting Provider Internal Medicine; Emergency Provider Emergency Medicine; Visit Provider Internal Medicine
PROC: 0DJ08ZZ Inspection of Upper Intestinal Tract, Via Natural or Artificial Opening Endoscopic (ICD-10-PCS; CPT 43235; principal; 2020-02-07)
PROC: 0D9600Z Drainage of Stomach with Drainage Device, Open Approach (ICD-10-PCS; CPT 49000; principal; 2020-02-07 15:30)
DX: K29.01 Acute gastritis with bleeding (principal); I63.9 Cerebral infarction, unspecified; J96.00 Acute respiratory failure, unspecified whether with hypoxia or hypercapnia; R57.8 Other shock; I21.A1 Myocardial infarction type 2; D62 Acute posthemorrhagic anemia; G81.91 Hemiplegia, unspecified affecting right dominant side; N17.9 Acute kidney failure, unspecified; T81.31XA Disruption of external operation (surgical) wound, not elsewhere classified, initial encounter; E87.70 Fluid overload, unspecified; R41.89 Other symptoms and signs involving cognitive functions and awareness; S70.01XA Contusion of right hip, initial encounter; W07.XXXA Fall from chair, initial encounter; I25.10 Atherosclerotic heart disease of native coronary artery without angina pectoris; K21.9 Gastro-esophageal reflux disease without esophagitis; R55 Syncope and collapse; I12.9 Hypertensive chronic kidney disease with stage 1 through stage 4 chronic kidney disease, or unspecified chronic kidney disease; N18.3 Chronic kidney disease, stage 3 (moderate); D72.829 Elevated white blood cell count, unspecified; S12.101D Unspecified nondisplaced fracture of second cervical vertebra, subsequent encounter for fracture with routine healing; F17.210 Nicotine dependence, cigarettes, uncomplicated; Z87.11 Personal history of peptic ulcer disease; Z98.61 Coronary angioplasty status
CPT/HCPCS: 31500; 36415; 36430; 36600; 70450; 71045; 73502; 74019; 80048; 80053; 80076; 80202; 81001; 82375; 82805; 83050; 83605; 83735; 84100; 84134; 84484; 85014; 85018; 85025; 85027; 85049; 85055; 85380; 85384; 85610; 85730; 86850; 86900; 86901; 86923; 87040; 87070; 87086; 87205; 88305; 88342; 92610; 93005; 93880; 93970; 94002; 94003; 96360; 97110; 97116; 97162; 97165; 97530; 97535; 99285; P9036; A9270; C1751; C8929; C9113; J0131; J0171; J0610; J1720; J1940; J2250; J2370; J2405; J2543; J2550; J3010; J3370; J3475; J3480; J7030; J7040; J7050; J7060; J7120; L0140; P9012; P9016; P9017; Q9957

== ENCOUNTER 2020-05-24 08:00 | Outpatient (RCR) | payer OTHER, SELFPAY ==
--- NOTE | 2020-03-21 13:49 | PTOPEVAL ---
Thank you for referring Johnson Hall to [facility]. Please review, sign, date and return this plan of care ELÍAS. Pt seen for initial PT evaluation due to impairments related to neck fracture and CVA. He requires additional physical therapy to address muscle weakness, limited motion, decreased balance and impaired functional mobility. Cont PT 2x/wk x 6 wk to achieve therapy goals. I agree with and certify that the following plan of care is medically necessary. Referring Physician Date Attending Provider: Iam Bass (Khengwai), Referring Provider: RAMYA [place] *PT Outpatient Evaluation Start: 03/21/20 12:34 Freq: Status: Active Protocol: Document 03/21/20 12:32 CAP (Rec: 03/21/20 13:33 CAP [id number]) Therapy Assessment Status Assessment Status Assessment Status Evaluation Outpatient Past Medical History Past Medical History Source of Past Medical History Patient,Recalled from Previous Visit, Confirmed with Patient /Family Neurological History Hx Cerebrovascular Accident (CVA) Yes: 02/15/20 Cardiovascular History Hx Cardiac Catheterization Yes Hx Coronary Stent Yes Hx Hypercholesterolemia Yes Hx Hypertension Yes Respiratory History Hx Respiratory Disorders No Significant History Gastrointestinal History Hx Gastrointestinal Bleed Yes: laparotomy 02/07/20 and Hx Other Gastrointestinal Disorders Yes: gastrostomy tube Genitourinary History Hx Kidney Stones Yes Musculoskeletal History Hx Back Injury Yes Hx Fractures Yes: c1 fracture 01/25/20; nose , C4 fracture: '98 Hematological History Hx Anemia Yes Hx Blood Transfusions Yes Endocrine History Hx Endocrine Disorders No Significant History HEENT History Hx HEENT Disorders No Significant History Integumentary History Hx Skin Disorders No Significant History Reproductive History Hx Reproductive Disorders No Significant History Psychosocial History Hx Psychiatric Disorders No Significant History Anesthesia History Hx Anesthesia Reactions No Significant History Evaluation Information Problem Diagnosis CVA and C1 fracture Onset 02/15/20, CVA, Additional Evaluation Detail Pt sustained an neck fracture on 01/26/20, when getting out of the shower causing a C1 fracture. He had a f/u on where the cervical collar was DC. Subjective Information He had a CVA. He was admitted Query Text:As Reported By Patient/ to [facility] for 21 days from 02/14/ Family
--- NOTE | 2020-03-23 10:50 | OTOPEVAL ---
OCCUPATIONAL THERAPY EVALUATION REPORT 03/23/2020 Thank you for referring Johnson Hall to [facility]. OT indicated 2x/week for 4 weeks for deficits described below. Please review, sign, date and return this plan of care ELÍAS. I agree with and certify that the following plan of care is medically necessary. Referring Physician Date Referring Provider: Iam Bass (Khengwai), MD *OT Outpatient Evaluation Therapy Assessment Status Assessment Status Assessment Status Evaluation Outpatient Past Medical History Past Medical History Source of Past Medical History Patient,Recalled from Previous Visit, Confirmed with Patient /Family Neurological History Hx Cerebrovascular Accident (CVA) Yes: 02/15/20 Cardiovascular History Hx Cardiac Catheterization Yes Hx Coronary Stent Yes Hx Hypercholesterolemia Yes Hx Hypertension Yes Respiratory History Hx Respiratory Disorders No Significant History Gastrointestinal History Hx Gastrointestinal Bleed Yes: laparotomy 02/07/20 and Hx Other Gastrointestinal Disorders Yes: gastrostomy tube Genitourinary History Hx Kidney Stones Yes Musculoskeletal History Hx Back Injury Yes Hx Fractures Yes: c1 fracture 01/25/20; nose , C4 fracture: '98 Hematological History Hx Anemia Yes Hx Blood Transfusions Yes Endocrine History Hx Endocrine Disorders No Significant History HEENT History Hx HEENT Disorders No Significant History Integumentary History Hx Skin Disorders No Significant History Reproductive History Hx Reproductive Disorders No Significant History Psychosocial History Hx Psychiatric Disorders No Significant History Anesthesia History Hx Anesthesia Reactions No Significant History Evaluation Information Problem Diagnosis CVA with (R) sided weakness Onset 02/15/20 Subjective Information Pt and (Lynnette) report Query Text:As Reported By Patient/ that he was admitted to [facility] for 21 days from 02/15/20-. He did not receive therapy when at [facility] and then discharged home. He reports right UE weakness and clumsiness since the CVA. assisting with ADL's. 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 Prior Level of Function Activity Level (Last 3 Months) Hand Dominance Right Comments Additional Prior Level of Function Since discharging from [facility] the Comments patient has progressed w
--- NOTE | 2020-04-19 10:37 | PTOPEVAL ---
Thank you for referring Johnson Hall to [facility].? Pt has received 8 physical therapy to address impairments related to CVA and neck fracture. He requires additional skilled therapy to address noted impairments. The patient is scheduled to be seen for therapy? 2 x/week for 4 weeks. Please review, sign, date and return this plan of care ELÍAS. I agree with and certify that the following plan of care is medically necessary. Referring Physician Date Attending Provider: Iam Bass (Khengwai), Physical Therapy progress note *PT Outpatient Evaluation Start: 03/21/20 12:34 Freq: Status: Active Protocol: Document 04/19/20 09:25 JHONATAN (Rec: 04/19/20 10:07 JHONATAN [id number]) Therapy Assessment Status Assessment Status Re-evaluation Evaluation Information Problem Diagnosis CVA with (R) sided weakness Onset 02/15/20 Additional Evaluation Detail Pt sustained an neck fracture on 01/26/20, when getting out of the shower causing a C1 fracture. He had a f/u on where the cervical collar was DC. Pt and (Lynnette) report that he was admitted to [facility] for 21 days from 02/15/20-. He did not receive therapy when at [facility] and then discharged home. He reports right UE weakness and clumsiness since the CVA. assisting with ADL's. 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 He is able to move better to left vs right. Increased pain with flex/ext and rotation. Pain Assessment Timing of Pain Assessment Timing of Pain Assessment Re-assessment Pain Scale Pain Scale Used Numeric (1 - 10) Self Report Pain Assessment Bilateral Neck Reported Pain Level 7 Pain Description Tightness Lowest Pain Intensity 5 Greatest Pain Intensity 7 Pain Aggravating Factors ADL's Pain Behaviors Anxious Pain Score Pain Score 7: Self Report Cervical and Lumbar ROM Cervical ROM Cervical Flexion (0-60) 50 Query Text:Active in Degrees Cervical Lateral Flexion Right (0-50) 0 Query Text:Active in Degrees Cervical Lateral Flexion Left (0-50) 0 Query Text:Active in Degrees
--- NOTE | 2020-04-19 10:50 | OTOPEVAL ---
OUTPATIENT OCCUPATIONAL THERAPY DISCHARGE SUMMARY: 04/19/2020 Thank you for referring Johnson Hall to [facility][Note 3].? As noted below, no further skilled OT is indicated at this time. Plan to discharge today with patient independent in HEP. Please review, sign, date and return this plan of care ELÍAS. I agree with and certify that the following plan of care is medically necessary. Referring Physician Date Attending Provider: Iam Bass (Khengwai), *OT Outpatient Re-Evaluation Start: 03/23/20 09:58 Evaluation Information Problem Diagnosis CVA with (R) sided weakness Onset 02/15/20 Additional Evaluation Detail Pt sustained an neck fracture on 01/26/20, when getting out of the shower causing a C1 fracture. He had a f/u on where the cervical collar was DC. Johnson has been participating in outpatient Occupational Therapy for 4 weeks. OT has been working on UE strengthening, fine motor coordination tasks in order to improve participation in functional ADLs including dressing and bathing tasks. Johnson is independent in all instructed materials at this time. 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 Pt reports I will continue to keep completing my home exercises Pain Assessment Timing of Pain Assessment Timing of Pain Assessment Assessment Pain Scale Pain Scale Used Numeric (1 - 10) Self Report Pain Assessment Bilateral Neck Reported Pain Level 7 Pain Score Pain Score 7: Self Report Upper Extremity Range of Motion General Upper Extremity Range of Motion Reason Not Measured WNL/Left,WNL/Right Upper Extremity Muscle Strength Testing General Upper Extremity Strength Gross Upper Extremity Strength Comments Pt R UE strength 5/5 Hand Radiotelegraphist/Pinch Strength Assessment Hand Right Radiotelegraphist Strength (lbs) 103.3 Lateral Pinch Strength (lbs) 14 Palmar Pinch Strength (lbs) 14.3 Tip Pinch Strength (lbs) 11.2 9-Hole Peg Hand Test Hand Right Hand Dominance Right Scoring Time (seconds)
--- NOTE | 2020-05-24 11:50 | PTOPEVAL ---
Thank you for referring Johnson Hall to [facility].? Pt demonstrates progress with balance on Jalloh Balance, leg strength and walking speed on TUG and 2 Minute walk test. He demonstrates improved miriam with walking endurance with improve cardiopulmonary response. He is indep with his HEP. [place] skilled therapy services at this time with most of his therapy goals met. Please review, sign, date and return this plan of care ELÍAS. I agree with and certify that the following plan of care is medically necessary. Referring Physician Date Attending Provider: Iam Bass (Khengwai), MD Discharge Note *PT Outpatient Evaluation Start: 03/21/20 12:34 Freq: Status: Active Protocol: Document 05/24/20 08:05 JHONATAN (Rec: 05/24/20 08:57 [facility] [id number]) Therapy Assessment Status Assessment Status Assessment Status Re-evaluation Outpatient Past Medical History Past Medical History Source of Past Medical History Patient,Recalled from Previous Visit, Confirmed with Patient /Family Neurological History Hx Cerebrovascular Accident (CVA) Yes: 02/15/20 Cardiovascular History Hx Cardiac Catheterization Yes Hx Coronary Stent Yes Hx Hypercholesterolemia Yes Hx Hypertension Yes Respiratory History Hx Respiratory Disorders No Significant History Gastrointestinal History Hx Gastrointestinal Bleed Yes: laparotomy 02/07/20 and Hx Other Gastrointestinal Disorders Yes: gastrostomy tube Genitourinary History Hx Kidney Stones Yes Musculoskeletal History Hx Back Injury Yes Hx Fractures Yes: c1 fracture 01/25/20; nose , C4 fracture: '98 Hematological History Hx Anemia Yes Hx Blood Transfusions Yes Endocrine History Hx Endocrine Disorders No Significant History HEENT History Hx HEENT Disorders No Significant History Integumentary History Hx Skin Disorders No Significant History Reproductive History Hx Reproductive Disorders No Significant History Psychosocial History Hx Psychiatric Disorders No Significant History Anesthesia History Hx Anesthesia Reactions No Significant History Evaluation Information Problem Diagnosis CVA with (R) sided weakness Onset 02/15/20 Additional Evaluation Detail Pt sustained an neck fracture on 01/26/20, when getting out of the shower causing a C1 fracture. He had a f/u on where the cervical collar was DC. Johnson has been participating in outpatient Occupati
== END 2020-05-24 12:52 | disposition home or self-care (01) ==
LOC: ANHPT 08:00
PROVIDERS: PCP Internal Medicine; Visit Provider Internal Medicine
DX: I69.851 Hemiplegia and hemiparesis following other cerebrovascular disease affecting right dominant side (principal); S12.9XXD Fracture of neck, unspecified, subsequent encounter; S12.120D Other displaced dens fracture, subsequent encounter for fracture with routine healing
CPT/HCPCS: 97014; 97110; 97112; 97140; 97163; 97166; 97530; G0283

== ENCOUNTER → 2020-07-20 08:54 | Outpatient (CLI) | payer OTHER, SELFPAY ==
--- NOTE | ~2020-07-20 | XR_ITS ---
EXAMINATION: XR shoulder RT min 2V EXAM DATE: 07/20/2020 09:59 INDICATION: Impingement syndrome of shoulder region. TECHNIQUE: The following right shoulder projections obtained: frontal projection with internal rotati on, frontal projection with external rotation, Grashey, and axillary (4+ views). Correlation is made to contralateral shoulder same date. FINDINGS: No evidence of right shoulder rotator cuff calcific tendinosis. There is mild glenohumer al, mild to moderate acromioclavicular joint primary osteoarthritis. There are no acute fractures or dislocations identified. There is no subcutaneous gas. The soft tissue is unremarkable. There are no radiopaque foreign bodies. IMPRESSION: Mild to moderate right acromioclavicular, mild glenohumeral osteoarthritis. Reviewed, dictated and finalized at location A. A RAY OPERATOR IMPRESSION: Mild to moderate right acromioclavicular, mild glenohumeral osteoar thritis.
--- NOTE | ~2020-07-20 | XR_ITS ---
EXAMINATION: XR shoulder LT min 2V EXAM DATE: 07/20/2020 09:59 INDICATION: Impingement syndrome of shoulder region, left. TECHNIQUE: The following left shoulder projections obtained: frontal projection with internal rotatio n, frontal projection with external rotation, Grashey, and axillary (4+ views). Correlation is made t o contralateral shoulder exam same date. FINDINGS: No evidence of left shoulder rotator cuff calcific tendinosis. There is mild glenohumera l, mild to moderate acromioclavicular joint primary osteoarthritis. There are no acute fractures or d islocations identified. There is no subcutaneous gas. The soft tissue is unremarkable. There are no radiopaque foreign bodies. IMPRESSION: Left shoulder mild to moderate osteoarthritis symmetric to contralateral side. Reviewed, dictated and finalized at location A. PROFESSIONALS IMPRESSION: Left shoulder mild to moderate osteoarthritis symmetric to contrala teral side.
== END ==
PROVIDERS: PCP Internal Medicine; Visit Provider Internal Medicine
DX: M75.42 Impingement syndrome of left shoulder (principal); M19.012 Primary osteoarthritis, left shoulder; M19.011 Primary osteoarthritis, right shoulder
CPT/HCPCS: 73030

== ENCOUNTER 2020-10-04 08:00 | Outpatient (RCR) | payer OTHER, SELFPAY ==
[2020-08-07 09:15] VITALS: BP_SYST 60
--- NOTE | 2020-08-07 10:52 | PTOPEVAL ---
INITIAL PHYSICAL THERAPY EVALUATION and PLAN OF CARE Thank you for referring Johnson Hall to [facility].? Johnson is scheduled to be seen for physical therapy? 2x/week for 4 weeks. Please review, sign, date and return this plan of care ELÍAS. I agree with and certify that the following plan of care is medically necessary. Referring Physician Date Admitting Provider: Attending Provider: Iam Bass (Khengwai), MD Referring Provider: *PT Outpatient Evaluation Start: 08/07/20 09:18 Freq: Status: Active Protocol: Document 08/07/20 09:15 BHUMI (Rec: 08/07/20 10:52 BHUMI [id number]) Therapy Assessment Status Assessment Status Assessment Status Evaluation Outpatient Past Medical History Past Medical History Source of Past Medical History Recalled from Previous Visit, Confirmed with Patient/Family Neurological History Hx Cerebrovascular Accident (CVA) Yes: 02/15/20-L CVA Cardiovascular History Hx Cardiac Catheterization Yes Hx Coronary Stent Yes Hx Hypercholesterolemia Yes Hx Hypertension Yes Respiratory History Hx Respiratory Disorders No Significant History Gastrointestinal History Hx Gastrointestinal Bleed Yes: laparotomy 02/07/20 and Hx Other Gastrointestinal Disorders Yes: gastrostomy tube Genitourinary History Hx Kidney Stones Yes Musculoskeletal History Hx Back Injury Yes Hx Fractures Yes: C1 fracture 01/25/20; nose , C4 fracture: '98 Hx Other Musculoskeletal Disorders Yes: ankylosis spondydilitis Hematological History Hx Anemia Yes Hx Blood Transfusions Yes Endocrine History Hx Endocrine Disorders No Significant History HEENT History Hx HEENT Disorders No Significant History Integumentary History Hx Skin Disorders No Significant History Reproductive History Hx Reproductive Disorders No Significant History Psychosocial History Hx Psychiatric Disorders No Significant History Anesthesia History Hx Anesthesia Reactions No Significant History Evaluation Information Problem Diagnosis R shoulder pain, adhesive capsulitis;L shoulder impingement syndrome Onset ~ 6 wks ago Subjective Information Just began to have pain in R Query Text:As Reported By Patient/ shoulder which progressively Family worsened. Was doing previous HEP for L shoulder - it became harder to perform due to pain - stopped exercises. Then returned to MD about shoulder
[2020-09-06 08:05] VITALS: BP_SYST 130
--- NOTE | 2020-09-06 09:41 | PTOPEVAL ---
PHYSICAL THERAPY RE-EVALUATION and UPDATED PLAN OF CARE Thank you for referring Johnson Hall to [facility].? Johnson has made progress towards goals set for ROM, strength, and function with bilateral g-h jts, but has not fully reached all of the goals. I am recommending that he continue with physical therapy? 2x/week for 4 weeks. Please review, sign, date and return this plan of care ELÍAS. I agree with and certify that the following plan of care is medically necessary. Referring Physician Date Admitting Provider: Attending Provider: Iam Bass (Khengwai), MD Arias shoulder referral; MD Kwabena Braxton shoulder referral Referring Provider: *PT Outpatient Evaluation Start: 08/07/20 09:18 Freq: Status: Active Protocol: Document 09/06/20 08:05 BHUMI (Rec: 09/06/20 09:13 BHUMI [id number]) Therapy Assessment Status Assessment Status Assessment Status Re-evaluation Pain Assessment Timing of Pain Assessment Timing of Pain Assessment Assessment Pain Scale Pain Scale Used Numeric (1 - 10) Self Report Pain Assessment Left Shoulder(s) Reported Pain Level 2 Lowest Pain Intensity 2 Greatest Pain Intensity 5 Right Shoulder(s) Reported Pain Level 2 Lowest Pain Intensity 2 Greatest Pain Intensity 6 Pain Score Pain Score 2,2: Self Report Interventions Used Interventions Used By Clinicians Exercise,Heat,Ice Upper Extremity Range of Motion Scapular/ Shoulder Range of Motion Right Shoulder Flexion - Active 94 Shoulder Flexion - Passive 116 Shoulder Extension - Active 56 Shoulder Abduction - Active 85 Shoulder Abduction - Passive 130 Shoulder Medial Rotation - Active 63 Shoulder Medial Rotation - Passive 80 Shoulder Medial Rotation - Active L1 Query Text:Reach Behind the Back Shoulder Lateral Rotation - Active 35 Shoulder Lateral Rotation - Passive 50 Shoulder Lateral Rotation - Active C7 Query Text:Reach Behind the Head Scapular/Shoulder Range of Motion ER in neutral - 78 Comments supine - IR/ER measurements - humerus at 50 deg abduction Left Shoulder Flexion - Active 140 Shoulder Extension - Active 78 Shoulder Abduction - Active 135 Shoulder Medial Rotation - Active 90 Shoulder Medial Rotation - Active T8 Query Text:Reach Behind the Back Shoulder Lateral Rotation - Active 60 Shoulder Lateral Rotation - Active T3 Query Text:Reach Behind the Head Scapular/Shoulder Range of Motion ER in neutral - 80 Comments Upper Extremity Muscle Strength Testing Scapular/Shoulder Right Shoulder Flexion Strength 4 Good Shoulder Extension Strength 5 Normal Shoulder Abduction Strength 3+ Fair + Shoulder Medial Rotation Strength 4 Good Shoulder
[2020-10-04 08:05] VITALS: BP_SYST 121
--- NOTE | 2020-10-04 10:52 | PTOPEVAL ---
PHYSICAL THERAPY DISCHARGE SUMMARY Thank you for referring Johnson Hall to [facility].? Johnson has made increased gains in PT towards goals set and is ready for discharge to [facility]. He was seen x 17 visits. I agree with Johnson's discharge from physical therapy. Referring Physician Date Admitting Provider: Attending Provider: Iam Bass (Khengwai), MD Referring Provider: Therapy Assessment Status Assessment Status Assessment Status Discharge Evaluation Information Problem Diagnosis R shoulder pain, adhesive capsulitis, L shoulder impingement syndrome Subjective Information Johnson generally reports Query Text:As Reported By Patient/ increase in discomfort in the Family mornings - uses BenGay rub. If needs to reach overhead tends to use L UE. Sleeping is okay in regards to shoulders mainly affected by neck. Continues to perform HEP on a regular basis. He has asked to come in today to learn how to perform ROM stretching to R shoulder. Pain Assessment Self Report Pain Assessment Left Shoulder(s) Reported Pain Level 2 Pain Description Aching Lowest Pain Intensity 2 Greatest Pain Intensity 3 Right Shoulder(s) Reported Pain Level 2 Pain Description Aching Lowest Pain Intensity 2 Greatest Pain Intensity 3 Scapular/ Shoulder Range of Motion Right Shoulder Flexion - Active 118 Shoulder Flexion - Passive 120 Shoulder Extension - Active 57 Shoulder Abduction - Active 112 Shoulder Abduction - Passive 121 Shoulder Medial Rotation - Active 65 Shoulder Medial Rotation - Passive 65 Shoulder Medial Rotation - Active L1 Query Text:Reach Behind the Back Shoulder Lateral Rotation - Active 42 Shoulder Lateral Rotation - Active T1 Query Text:Reach Behind the Head Scapular/Shoulder Range of Motion ER in neutral - 78 Comments supine - IR/ER measurements - humerus at 90 deg abduction Left Shoulder Flexion - Active 147 Shoulder Extension - Active 78 Shoulder Abduction - Active 151 Shoulder Medial Rotation - Active 90 Shoulder Medial Rotation - Active T7 Query Text:Reach Behind the Back Shoulder Lateral Rotation - Active 70 Shoulder Lateral Rotation - Active T3 Query Text:Reach Behind the Head Scapular/Shoulder Range of Motion ER in neutral - 86 Comments Upper Extremity Muscle Strength Testing Scapular/Shoulder
== END 2020-10-04 12:40 | disposition home or self-care (01) ==
LOC: ANHPT 08:00
PROVIDERS: PCP Internal Medicine; Visit Provider Internal Medicine
DX: M75.40 Impingement syndrome of unspecified shoulder (principal); M25.511 Pain in right shoulder
CPT/HCPCS: 97110; 97140; 97162

== ENCOUNTER 2021-07-30 12:24 | Emergency (ER) | payer SELFPAY ==
[2021-07-30 12:54] VITALS: BP 164/86; PULSE 62; RESP 18; TEMP 36.3; O2SAT 97
[2021-07-30 15:39] VITALS: BP 154/79; PULSE 57; O2SAT 98
--- NOTE | 2021-07-30 15:52 | PC.NURSE ---
1551 pt at intake desk stating he is going to leave and go home, states dizziness is better. Ambulated out of ed with steady gait.
== END 2021-07-30 15:51 | disposition left against medical advice (07) ==
LOC: ANHED 16:02
DX: R42 Dizziness and giddiness (principal)
CPT/HCPCS: 99199